=== PATIENT | female | born 1985 | race African-American/Black ===

== ENCOUNTER 2019-06-16 11:37 | Outpatient (CLI) | payer MEDICAID, SELFPAY ==
[2019-06-16 12:39] LABS: Blood Urea Nitrogen 7 mg/dL (7-17); Calcium 8.9 mg/dL (8.4-10.2); Carbon Dioxide 23 mmol/L (22-30); Chloride 103 mmol/L (98-107); Cholesterol 242 mg/dL (0-200); Estimated Glomerular Filt Rate > 60; Glucose 228 mg/dL (65-105); HDL Direct 26 mg/dL; Potassium 3.5 mmol/L (3.4-5.0); Sodium 136 mmol/L (137-145); Triglycerides 87 mg/dL (<150)
[2019-06-16 12:50] LABS: LDL Cholesterol Direct 192 mg/dL
[2019-06-16 12:59] LABS: Hemoglobin A1C 12.7 % (<5.7)
== END 2019-06-16 11:38 | disposition home or self-care (01) ==
DX: Z76.89 Persons encountering health services in other specified circumstances (principal)
CPT/HCPCS: 36415; 80048; 80061; 83036

== ENCOUNTER 2019-09-16 10:30 | Outpatient (RCR) | payer OTHER, SELFPAY ==
[2019-06-24 13:16] VITALS: BMI 26.5
[2019-06-24 13:17] VITALS: BMI 26.5
== END 2019-09-22 23:59 | disposition home or self-care (01) ==
LOC: ANHDMC 10:30
PROVIDERS: PCP Family Medicine
DX: E11.65 Type 2 diabetes mellitus with hyperglycemia (principal); Z71.3 Dietary counseling and surveillance; Z71.89 Other specified counseling
CPT/HCPCS: 97802; G0108

== ENCOUNTER 2019-11-27 13:00 | Outpatient (RCR) | payer OTHER, SELFPAY ==
[2019-09-25 15:21] VITALS: BMI 25.6
[2019-09-25 15:22] VITALS: BMI 25.6
== END 2019-11-27 15:15 | disposition home or self-care (01) ==
LOC: ANHDMC 13:00
PROVIDERS: PCP Family Medicine
DX: E11.65 Type 2 diabetes mellitus with hyperglycemia (principal); Z71.3 Dietary counseling and surveillance; Z71.89 Other specified counseling
CPT/HCPCS: 97803; G0108

== ENCOUNTER 2019-12-22 13:08 | Outpatient (CLI) | payer OTHER, SELFPAY ==
--- NOTE | ~2019-12-22 | US_ITS ---
EXAMINATION: US renal BI EXAM DATE: 12/22/2019 14:14 INDICATION: Stage I chronic kidney disease. Hyperlipidemia. TECHNIQUE: Multiple grayscale and Doppler images of the kidneys were obtained (by a technologist who performed the scan) and subsequently reviewed. There is no prior study for comparison. FINDINGS: Right kidney: There is normal contour and echogenicity. It measures 11.6 x 6.0 x 4.8 centimeters. T here are no focal renal lesions identified. There is no hydronephrosis. Left kidney: There is normal contour and echogenicity. It measures 11.7 x 6.9 x 6.7 centimeters. The re is anechoic region measuring 2.7 cm maximally, appearance consistent with cyst. There is no hydr onephrosis. Bladder unremarkable. IMPRESSION: 1. Anechoic left renal lesion likely cyst. 2. Otherwise unremarkable exam. Reviewed, dictated and finalized at location A. SURGEON
== END 2019-12-22 13:09 | disposition home or self-care (01) ==
LOC: ANHIMG 13:14
PROVIDERS: PCP Family Medicine; Visit Provider Internal Medicine Nephrology
DX: N18.1 Chronic kidney disease, stage 1 (principal); E11.9 Type 2 diabetes mellitus without complications; E78.5 Hyperlipidemia, unspecified; N28.9 Disorder of kidney and ureter, unspecified
CPT/HCPCS: 76775

== ENCOUNTER 2020-03-15 11:14 | Outpatient (CLI) | payer OTHER, SELFPAY ==
[2020-03-15 12:59] LABS: HIV 1/2 Ab P24 Ag Result Negative (Negative)
[2020-03-15 13:47] LABS: Hepatitis B Surface Antigen Negative (Negative)
[2020-03-15 13:51] LABS: Hepatitis B Core IgM Result Negative (Negative)
[2020-03-15 14:04] LABS: Hepatitis C Virus Antibody Negative (Negative)
[2020-03-16 11:03] LABS: Rapid Plasma Reagin Non-Reactive (NonReactive)
[2020-03-18 18:57] LABS: Hepatitis Be Antibody Nonreactive
== END 2020-03-15 11:15 | disposition home or self-care (01) ==
PROVIDERS: PCP Family Medicine; Visit Provider Obstetrics & Gynecology
DX: A64 Unspecified sexually transmitted disease (principal)
CPT/HCPCS: 36415; 86592; 86695; 86696; 86703; 86705; 86707; 86803; 87340; G0432

== ENCOUNTER 2020-05-27 13:37 | Outpatient (CLI) | payer OTHER, SELFPAY ==
[2020-05-27 15:03] LABS: Beta HCG Quantitative < 2.39 mIU/ML
== END 2020-05-27 13:38 | disposition home or self-care (01) ==
PROVIDERS: PCP Family Medicine; Visit Provider Advanced Practice Midwife
DX: Z30.9 Encounter for contraceptive management, unspecified (principal)
CPT/HCPCS: 36415; 84702

== ENCOUNTER 2020-10-11 04:22 | Observation (INO) | payer OTHER, SELFPAY ==
[2020-10-11] VITALS (17 sets, daily range): BP systolic 88–122; BP diastolic 53–81; PULSE 59–89; RESP 12–21; TEMP 36.7–36.8; O2SAT 98–100; BMI 17.5
--- NOTE | ~2020-10-11 | CT_ITS ---
EXAMINATION: CT abdomen pelvis w con INDICATION: Abdominal pain TECHNIQUE: Computed tomographic images of the abdomen and pelvis were obtained after the administrati on of 100 cc of Omnipaque 350 intravenous contrast. The dose-length product (DLP) was 180.26 mGy-cm. Automated exposure control and iterative reconstruction technique were employed. COMPARISON: None available FINDINGS: The lung bases are clear. The heart size is normal. The liver, spleen, pancreas, gallbladde r, and adrenal glands are normal. The kidneys are unremarkable. A large volume of colonic stool is pr esent. No pathologically enlarged abdominal or pelvic lymph nodes are identified. There is no free in traperitoneal gas or evidence of bowel obstruction. An IUD is present in the uterus. On some images, the IUD appears to be within the myometrium. This appearance could also be caused by an adjacent subm ucosal fibroid. IMPRESSION: 1. Constipation. 2. Questionable position of the IUD in the myometrium. Pelvic ultrasound is recommended. Reviewed, dictated and finalized at location A. IMPRESSION: 1. Constipation. 2. Questionable position of the IUD in the myometrium. Pelvic ultrasound is rec ommended.
--- NOTE | ~2020-10-11 | US_ITS ---
EXAMINATION: US pelvic complete EXAM DATE: 10/11/2020 11:57 INDICATION: IUD placement IUD PLACEMENT . TECHNIQUE: Pelvic transabdominal sonogram was performed. There are multiple grayscale and Doppler im ages available for interpretation. Correlation is made to CT abdomen same date. FINDINGS: Uterus measures 7.2 x 4.1 x 6.1 cm, with a central fundal fibroid measuring 3 cm, and obsc uring the endometrium. Endometrium is poorly visualized, but there is artifact identified from at ant erior and contiguous to the fibroid. There is no free pelvic fluid. Right adnexa: The ovary measures 3.9 x 1.9 x 2.1 cm and is morphologically normal. Ovarian vascular f low confirmed. Left adnexa: The ovary is not identified. There is no adnexal mass. IMPRESSION: Central fibroid obscuring endometrium, IUD crossbar identified contiguous and anterior to this, intrauterine in position. Could be within endometrial cavity but cannot specifically confirm t his. Reviewed, dictated and finalized at location B. IMPRESSION: Central fibroid obscuring endometrium, IUD crossbar identified cont iguous and anterior to this, intrauterine in position. Could be within endometr ial cavity but cannot specifically confirm this.
--- NOTE | 2020-10-11 04:38 | PC.NURSE ---
accucheck 337 on arrival.
--- NOTE | 2020-10-11 04:42 | ED.GENADULT ---
HPI - General Adult General Chief complaint: Abdominal Pain Stated complaint: Epigastric pain, DM complications Time Seen by Provider: 10/11/20 04:30 Source: RN notes reviewed History of Present Illness HPI narrative: Patient presents to emergency department from home for abdominal pain. Patient states for the past 1 week she has had abdominal pain located in the epigastric region. Pain is described as aching and burning sensation. Associated with nausea. The patient denies anything makes the pain better or worse she denies any fevers or chills chest pain shortness of breath vomiting diarrhea or any other symptoms Related Data Allergies Allergy/AdvReac Type Severity Reaction Status Date / Time No Known Allergies Allergy Verified 10/11/20 04:40 Review of Systems Review of Systems: Gen.: Denies fevers or chills ENT: Denies congestion Respiratory: Denies shortness of breath or cough CV: Denies chest pain or palpitations GI: See HPI denies burning, urgency, frequency or hematuria Musculoskeletal: Denies back pain or muscle pain Neuro: Denies numbness, tingling, weakness or focal weakness Skin: Denies rash Except as documented, all other systems reviewed and negative [facility] Past Medical History Medical History (Updated 10/11/20 @ 06:38 by Malik Sanchez DO) Diabetes mellitus Hypercholesterolemia Social History Social History (Updated 10/11/20 @ 04:43 by Malik Sanchez DO) Smoking status: Never smoker Spiritual care concerns: No Exam Narrative: APPEARANCE: No acute distress, nontoxic, resting in bed HEENT: Normocephalic, atraumatic, OMM RESPIRATORY: No respiratory distress, clear to auscultation bilaterally with no rhonchi wheezing or rales CARDIOVASCULAR: RRR s murmur ABDOMINAL: Soft nondistended tender palpation epigastric and right upper quadrant left upper quadrant no tenderness right lower quadrant left lower quadrant no rebound or guarding MUSCULOSKELETAl: Moves all extremities. No clubbing, cyanosis or edema. NEURO: Awake and alert. Following commands, speech normal, no focal deficits SKIN:: Warm, dry. Normal Color PSYCHIATRIC: Normal affect/mood Course Course Emergency Course: Discussed with Dr. Lambert presentation work-up agrees with mission to the ICU Discussed with Dr. Kelsey presentation work-up agrees with admission at this time Discussed with patient and family results of workup and diagnosis. Discussed need for admission. Patient and family understand and agree to current treatment plan Vital Signs Vital signs: Vital Signs Temperature 98.1 F 10/11/20 04:30 Pulse Rate 89 10/11/20 04:30 Respiratory Rate 20 10/11/20 04:30 Blood Pressure 122/81 10/11/20 04:30 Pulse Oximetry 100 10/11/20 04:30 Temperature 98.1 F 10/11/20 04:30 Pulse Rate 89 10/11/20 06:51 Respiratory Rate 21 H 10/11/20 06:51 Blood Pressure 115/68 10/11/20 06:51 Pulse Oximetry 100 10/11/20 06:51 Medical Decision Making Vital Signs Vital Signs: Vital Signs Temperature 98.1 F 10/11/20 04:30 Pulse Rate 89 10/11/20 04:30 Respiratory Rate 20 10/11/20 04:30 Blood Pressure 122/81 10/11/20 04:30 Pulse Oximetry 100 10/11/20 04:30 Temperature 98.1 F 10/11/20 04:30 Pulse Rate 89 10/11/20 06:51 Respiratory Rate 21 H 10/11/20 06:51 Blood Pressure 115/68 10/11/20 06:51 Pulse Oximetry 100 10/11/20 06:51 Lab Data Result diagrams: 10/11/20 04:56 10/11/20 04:56 Labs: Lab Results 10/11/20 10/11/20 10/11/20 Range/Units 04:37 04:56 04:56 WBC 6.4 (4.5-10.0) K/mm3 RBC 4.98 (4.2-5.4) M/mm3 Hgb 14.6 (12.0-15.0) g/dL Hct 46.2 (37.0-47.0) % MCV 92.8 (80-100) fl MCH 29.3 (26-34) pg MCHC 31.6 L (32-36) g/dl RDW 13.3 (11.5-14.5) % Plt Count 245 (150-375) k/mm3 MPV 10.9 H (7.4-10.4) fl Immature Gran % (Auto) 1.1 H (0-0.5) % Neut % (Auto) 54.5 (45.5-73.1) % Ly
[2020-10-11 04:43] LABS: Glucose Point of Care 337 mg/dl (65-105)
[2020-10-11 05:05] LABS: Basophils Percent Auto 0.5 % (0.2-1.2); Eosinophils Absolute Auto 0.2 K/mm3 (0-0.3); Eosinophils Percent Auto 2.4 % (0-4.4); Hematocrit 46.2 % (37.0-47.0); Hemoglobin 14.6 g/dL (12.0-15.0); Immature Granulocyte Absolute 0.07 K/mm3 (0.00-0.031); Immature Granulocyte Percent A 1.1 % (0-0.5); Lymphocytes Absolute Auto 2.01 K/mm3 (0.9-3.2); Lymphocytes Percent Auto 31.7 % (18.3-44.2); Mean Corpuscular HGB Conc 31.6 g/dl (32-36); Mean Corpuscular Hemoglobin 29.3 pg (26-34); Mean Corpuscular Volume 92.8 fl (80-100); Mean Platelet Volume 10.9 fl (7.4-10.4); Monocytes Absolute Auto 0.6 K/mm3 (0.1-0.6); Monocytes Percent Auto 9.8 % (2.6-8.5); Neutrophils Absolute Auto 3.5 K/mm3 (1.3-6.7); Neutrophils Percent Auto 54.5 % (45.5-73.1); Platelet Count Result 245 k/mm3 (150-375); Red Blood Count 4.98 M/mm3 (4.2-5.4); Red Cell Distribution Width 13.3 % (11.5-14.5); White Blood Count 6.4 K/mm3 (4.5-10.0)
[2020-10-11] MEDS: FAMOTIDINE 20 MG/2 ML VIAL IV PUSH (05:14)
[2020-10-11] MEDS: SODIUM CHLORIDE 0.9% IV 1,000 ML 999 ML IV CONT ×2 (05:14→05:55)
[2020-10-11] MEDS: ONDANSETRON INJ 4 MG/2 ML VIAL IV PUSH (05:15)
[2020-10-11 05:34] LABS: Alanine Aminotransferase 17 U/L (4-35); Albumin Level 4.8 g/dL (3.5-5.1); Alkaline Phosphatase 73 U/L (38-126); Anion Gap 20 mmol/L (8-16); Aspartate Amino Transferase 29 U/L (14-36); Bilirubin,Total 0.9 mg/dL (0.2-1.3); Blood Urea Nitrogen 9 mg/dL (7-17); Calcium 9.7 mg/dL (8.4-10.2); Carbon Dioxide 8 mmol/L (22-30); Chloride 104 mmol/L (98-107); Estimated Glomerular Filt Rate > 60; Glucose 350 mg/dL (65-110); Lipase 73 U/L (23-300); Potassium 4.8 mmol/L (3.4-5.0); Sodium 132 mmol/L (137-145)
[2020-10-11 05:38] LABS: Add Urine Microscopic? YES; Appearance Urine Clear (Clear); Bacteria Urine Trace /hpf; Bilirubin Urine Negative (Negative); Blood Urine Negative (Negative); Color Urine Straw (Yellow); Glucose Urine UA 3+ mg/dL (Negative); Ketones Urine 2+ mg/dL (Negative); Leukocyte Esterase Ur Negative LEU/UL (Negative); Mucus Urine Rare /lpf; Nitrate Urine Negative (Negative); Protein Urine 2+ mg/dL (Negative); Squamous Epithelial Cell Urine Rare /hpf (Few); Urobilinogen Urine Negative mg/dL (<2.0); WBC Urine 0-3 /hpf
[2020-10-11 05:47] LABS: Specific Grav Ur 1.033 (1.001-1.035)
[2020-10-11 06:00] LABS: Alveolar/Arterial O2 Gradient 4.3 mmHg; Base Excess ABG -16.9 mEq/l (+/-2.0); Fractional Inspired Oxygen 21 %; HCO3 ABG 8.1 mEq/l (22.0-26.0); Oxygen Content ABG 18.9 %vol (16.0-22.0); Oxyhemoglobin 97.1 % THb (90.0-100.0); PO2 ABG 122.4 mmHg (80.0-100.0); PO2 FiO2 Ratio Arterial Blood 5.83 %; Total Hemoglobin 13.7 g/dL (12.0-18.0)
[2020-10-11 06:03] LABS: Device ROOM AIR; Modified Allen's Test Pass; PCO2 ABG 19.2 mmHg (35.0-45.0); Site Drawn LEFT RADIAL; pH ABG 7.245 (7.350-7.450)
[2020-10-11 06:14] LABS: Magnesium 1.7 mg/dL (1.6-2.3)
--- NOTE | 2020-10-11 07:01 | PM.IMHP ---
H&P: HPI History of Present Illness Date/Time: 10/11/20 07:01 Chief Complaint: Abdominal pain Narrative: Patient presents to emergency department from home for abdominal pain that started about a week ago. The abdominal pain is in the epigastric area which is dull achy sensation. There is associated nausea but no vomiting. The patient has not been feeling well with the abdominal pain and hence came for evaluation. She denies any chest pain or shortness of breath or vomiting or diarrhea or fever or chills. She has a history of diabetes that was diagnosed with a year ago and was put on metformin and Januvia which she has been taking. Initial hemoglobin A1c was to falls and she states it has improved down to 6 subsequently after oral hypoglycemic agent however within the last few months she has been losing weight feeling more thirsty and also urinating frequently along with worsening of her hyperglycemia with A1c back to 12.8 4 months ago. She was planned to be started on insulin however her insulin was not covered by the insurance and has not been able to get her insulin. Upon evaluation in the ER she was noted to have DKA with bicarbonate of 8 and blood sugar of 350. She is planned to be admitted to the ICU under DKA protocol with regular insulin. She has already received 2 L IV fluid in the ER. Review of Systems Review of Systems: - CONSTITUTIONAL: Reports weight loss, denies fever and chills. - HEENT: Denies changes in vision and hearing - RESPIRATORY: Denies SOB and cough. - CV: Denies palpitations and CP. - GI: Reports abdominal pain, nausea, denies vomiting and diarrhea. - : Denies dysuria and reports urinary frequency. - MSK: Denies myalgia and joint pain. - SKIN: Denies rash and pruritus. - NEUROLOGICAL: Denies headache and syncope. - PSYCHIATRIC: Denies recent changes in mood. Denies anxiety and depression. All systems reviewed & are unremarkable except as noted in HPI and below Constitutional: Constitutional: Reports fatigue and Reports weakness Neurologic: Reports weakness Endocrine: Endocrine: Reports fatigue PMFSH Past Medical History Medical History (Updated 10/11/20 @ 06:38 by Malik Sanchez DO) Diabetes mellitus Hypercholesterolemia Social History Social History (Updated 10/11/20 @ 04:43 by Malik Sanchez DO) Smoking status: Never smoker Spiritual care concerns: No Meds Home Medications and Allergies Allergies Allergy/AdvReac Type Severity Reaction Status Date / Time No Known Allergies Allergy Verified 10/11/20 04:40 Vital Signs Vital Signs - 24 hr 10/11/20 04:30 Temperature 98.1 F Pulse Rate 89 Respiratory Rate 20 Blood Pressure 122/81 Pulse Oximetry 100 Exam Narrative: GENERAL: The patient is well developed, not in acute distress HEENT: Nonicteric sclerae, PERRLA, EOMI. Oropharynx clear. Moist mucous membranes. Conjunctivae appear well perfused. CHEST: Chest wall is nontender. HEART: Regular rate and rhythm without murmur, rubs, or gallops LUNGS: Clear to auscultation bilaterally. no respiratory distress ABDOMEN: Soft, positive bowel sounds, tender epigastric region, no organomegaly. SKIN: No rash, no excessive bruising, petechiae, or purpura. NEUROLOGIC: Cranial nerves II-XII intact, alert and oriented x 3, no gross motor deficits EXTREMITIES: no edema, cyanosis or clubbing Extrem: General: normal exam except as noted and no edema H&P: Results Labs Labs: Short CBC 10/11/20 Range/Units 04:56 WBC 6.4 (4.5-10.0) K/mm3 Hgb 14.6 (12.0-15.0) g/dL Hct 46.2 (37.0-47.0) % Plt Count 245 (150-375) k/mm3 BMP 10/11/20 04:56 Sodium 132 L Potassium 4.8 Chloride 104 Carbon Dioxide 8 L BUN 9 Creatinine 0.60 L Glucose 350 H Calcium 9.7 Liver Function 10/11/20 Range/Units 04:56 Total Bilirubin 0.9 (0.2-1.3) mg/dL AST 29 (14-36) U/L ALT 17 (4-35) U/L Alkaline Phosphatase 73 (38-126) U/L Alb
--- NOTE | 2020-10-11 07:21 | PC.NURSE ---
BS 248 at this time.
[2020-10-11 07:22] LABS: Glucose Point of Care 248 mg/dl (65-105)
[2020-10-11] MEDS: INSULIN HUMAN REGULAR (*BKC) 100 UNITS in SODIUM CHLORIDE 0.9% IV 99 ML IV CONT (07:26)
--- NOTE | 2020-10-11 07:51 | ADMGEN ---
This patient, Leeann Sotelo, was admitted to Intensive Care Unit-2. Patient/family oriented to hospital policies and general routines including ID bracelet, bed and alarms, visiting hours, pain management, procedures, bathroom and other care routines, personal items, smoking policy, room service/diet, and visiting hours. Information on how to activate the Rapid Response Team has been discussed. Patient/Family are encouraged to report perceived risks to care and to ask questions if they do not understand what they are told or what they should do.
[2020-10-11] MEDS: KCL 20 MEQ/D5/0.45% SOD CHL 1,000 ML 150 ML IV CONT (08:06)
[2020-10-11 08:47] LABS: Anion Gap 21 mmol/L (8-16); Blood Urea Nitrogen 8 mg/dL (7-17); Calcium 8.7 mg/dL (8.4-10.2); Carbon Dioxide 7 mmol/L (22-30); Chloride 103 mmol/L (98-107); Estimated CRCL calculation 100 ml/min; Estimated Glomerular Filt Rate > 60; Glucose 274 mg/dL (65-110); Potassium 3.9 mmol/L (3.4-5.0); Sodium 131 mmol/L (137-145)
--- NOTE | 2020-10-11 09:08 | WPDCNINT ---
Assessment and Plan Assessment and plan (1) DKA (diabetic ketoacidosis): Code(s): E11.10 - Type 2 diabetes mellitus with ketoacidosis without coma Status: Acute Assessment and Plan: Patient's labs are consistent with with DKA with elevated anion gap and positive ketones Patient was given 2 L IV fluid bolus and started on IV insulin Will change IV fluids to D5 half-normal saline Serial labs ordered Hold metformin and Januvia at this time Patient is NPO (2) Diabetes mellitus: Code(s): E11.9 - Type 2 diabetes mellitus without complications Status: Acute Assessment and Plan: Check HbA1c (3) IUD migration: Code(s): T83.32XA - Displacement of intrauterine contraceptive device, initial encounter Status: Acute Assessment and Plan: The CT abdomen pelvis suggests the IUD may be in the myometrium. Patient states that it was placed with difficulty around 3 months ago Will check pelvic ultrasound to confirm placement (4) Hypercholesterolemia: Code(s): E78.00 - Pure hypercholesterolemia, unspecified Status: Acute Assessment and Plan: Patient currently not on any treatment Will check FLP Additional Plan DVT prophylaxis -SCDs Nutrition - NPO at this time Code Status - Full Code Director Of Marketing Analytics Consult Note Consult date: 10/11/20 Time Seen: 08:00 HPI: Leeann Sotelo is a 35 year old female with past medical history of diabetes and hyperlipidemia presented with chief complaint of abdominal pain to ER last night. Patient takes metformin and Januvia but does not check her sugars. She states that she started having abdominal pain which is mild for last 1 week. Pain was 8/10 severe intermittent sharp quality. No radiation. Pain was worse with eating. She also had lot of nausea but no significant vomiting. No diarrhea. No hematochezia melena or hematemesis. No fever chest pain or shortness of breath. No chills or rigors. She denies any excessive or abnormal uterine bleeding. She has IUD which was placed 3 months ago with some difficulty as per her report. All other systems were reviewed and were negative. In ED patient was found to be in DKA. She was started on IV fluid bolus followed by IV insulin infusion and admitted to ICU for further evaluation and management. Her CT abdomen pelvis showed constipation and possible migration of IUD into the myometrium Review of Systems Review of Systems: All systems reviewed & are unremarkable except as noted in HPI and below (HPI) PMFSH Past Medical History Medical History Diabetes mellitus Hypercholesterolemia Social History Social History Smoking status: Never smoker Alcohol intake: current Drinks per week: 1 Substance use: former Spiritual care concerns: No Meds Home Medications and Allergies Home Medications Medication Instructions Recorded Confirmed Type metformin 1,000 mg PO BID 10/11/20 10/11/20 History sitagliptin [Januvia] 100 mg PO DAILY 10/11/20 10/11/20 History Allergies Allergy/AdvReac Type Severity Reaction Status Date / Time No Known Allergies Allergy Verified 10/11/20 04:40 Vital Signs Vital Signs - 24 hr 10/11/20 04:30 10/11/20 05:57 10/11/20 06:22 Temperature 36.7 C Pulse Rate 89 84 89 Respiratory Rate 20 19 19 Blood Pressure 122/81 Pulse Oximetry 100 100 10/11/20 06:30 10/11/20 06:51 10/11/20 07:19 Temperature Pulse Rate 88 89 76 Respiratory Rate 21 H 21 H 19 Blood Pressure 115/68 112/62 Pulse Oximetry 100 100 98 10/11/20 08:00 Temperature 36.7 C Pulse Rate 88 Respiratory Rate 19 Blood Pressure 110/76 Pulse Oximetry 100 Exam Narrative: General: Pt is alert awake and in NAD Lungs/Chest: Trachea central Clear BS B/L, No crackles or wheezing. Cardiac: RRR. Normal S1 S2. No murmurs Circulation: Pedal pulses are intact and symmet
[2020-10-11 09:38] LABS: Glucose Point of Care 201 mg/dl (65-105)
[2020-10-11 09:38] LABS: Glucose Point of Care 204 mg/dl (65-105)
[2020-10-11 10:00] LABS: Cholesterol 317 mg/dL (0-200); HDL Direct 36 mg/dL; Triglycerides 179 mg/dL (<150)
[2020-10-11 10:11] LABS: LDL Cholesterol Direct 201 mg/dL
[2020-10-11 10:37] LABS: Glucose Point of Care 239 mg/dl (65-105)
[2020-10-11 10:42] LABS: Hemoglobin A1C > 14.0 % (<5.7)
--- NOTE | 2020-10-11 10:53 | PC.NURSE ---
Updated aunt on plan of care and patient condition.
[2020-10-11 11:23] LABS: Beta-Hydroxybutyrate/Acetoacetate 8.07 mmol/L (0.02-0.27)
[2020-10-11 11:34] LABS: Glucose Point of Care 171 mg/dl (65-105)
[2020-10-11 12:53] LABS: Anion Gap 12 mmol/L (8-16); Blood Urea Nitrogen 6 mg/dL (7-17); Calcium 8.7 mg/dL (8.4-10.2); Carbon Dioxide 13 mmol/L (22-30); Chloride 107 mmol/L (98-107); Estimated CRCL calculation 121 ml/min; Estimated Glomerular Filt Rate > 60; Glucose 142 mg/dL (65-110); Potassium 3.1 mmol/L (3.4-5.0); Sodium 132 mmol/L (137-145)
[2020-10-11] MEDS: POTASSIUM CHLORIDE 20 MEQ TABLET 40 MEQ PO (14:04)
[2020-10-11] MEDS: INSULIN GLARGINE (*BKC) 100 UNITS/ML 10 UNITS SUB-Q (14:04)
--- NOTE | 2020-10-11 14:08 | PM.IMPN ---
Progress Note: A&P Assessment and Plan (1) DKA (diabetic ketoacidosis): Code(s): E11.10 - Type 2 diabetes mellitus with ketoacidosis without coma Status: Acute Assessment and Plan: Patient's labs are consistent with with DKA with elevated anion gap and positive ketones. Patient was given 2 L IV fluid bolus and started on IV insulin and IV fluids per DKA protocol. Continue to hold metformin and Januvia. Anion gap closing with plans to change her to SQ insulin. (2) Diabetes mellitus: Code(s): E11.9 - Type 2 diabetes mellitus without complications Status: Acute Assessment and Plan: As above. HbA1c was 12.7 in June 2019 but nothing since. A1c now >14. She is only on metformin and Januvia on admissions. Acetylene Torch Operator and asthma educator consult. (3) IUD migration: Code(s): T83.32XA - Displacement of intrauterine contraceptive device, initial encounter Status: Acute Assessment and Plan: The CT abdomen pelvis suggests the IUD may be in the myometrium. Patient states that it was placed with difficulty around 3-4 months ago. Pelvic US showing a central fibroid that obscured the endometrium. IUD could be within endometrial cavity but cannot specifically confirm this. FRIEND OF THE COURT consult obtained. (4) Hypercholesterolemia: Code(s): E78.00 - Pure hypercholesterolemia, unspecified Status: Acute Assessment and Plan: Patient currently not on any treatment. Lipid panel ordered. (5) DVT prophylaxis: Code(s): Z29.9 - Encounter for prophylactic measures, unspecified Status: Acute Assessment and Plan: Lovenox Subjective Date/time seen: 10/11/20 14:08 Interval history: 35yo female with DM here for abdominal pain and found to have DKA. Assuming care. Chart reviewed. Abd feels better. Mild nausea but no vomiting or diarrhea. No anosmia or dysgeusia. She is unvaccinated for COVID-19. She is being taught on how to give herself insulin. Had vaginal spotting initially after IUD placed but nothing since. No vagial discharge. Exam Narrative: AF 98.1 92/54 78 14 100% ra Gen - NARD Chest - CTA bilaterally, nml RR CV - RRR S1/S2 Abd - Soft, NT/ND, Positive BS Ext - No pedal edema Neuro - Alert and oriented. Nonfocal exam. Psych - Nml mood and affect Skin - Warm and dry Objective Data Vital Signs Vital Signs: Vital Signs - 24 hr 10/11/20 04:30 10/11/20 05:57 10/11/20 06:22 Temperature 98.1 F Pulse Rate 89 84 89 Respiratory Rate 20 19 19 Blood Pressure 122/81 Pulse Oximetry 100 100 10/11/20 06:30 10/11/20 06:51 10/11/20 07:19 Temperature Pulse Rate 88 89 76 Respiratory Rate 21 H 21 H 19 Blood Pressure 115/68 112/62 Pulse Oximetry 100 100 98 10/11/20 08:00 10/11/20 10:00 10/11/20 12:00 Temperature 98.1 F 98.1 F Pulse Rate 87 89 78 Respiratory Rate 19 12 14 Blood Pressure 110/76 108/70 92/54 L Pulse Oximetry 100 100 100 Intake/Output Intake/Output: Intake & Output 10/08/20 10/09/20 10/10/20 10/11/20 23:59 23:59 23:59 23:59 Intake Total 2425 Output Total 900 Balance 1525 Meds/Results Medications: Active Medications Generic Name Dose Route Start Last Admin Trade Name Freq PRN Reason Stop Dose Admin Acetaminophen 650 mg 10/11/20 11:57 Acetaminophen 325 Mg Tablet PO Q4H PRN Headache, fever or mild pain Hydrocodone Bitart/Acetaminophen 1 tab 10/11/20 11:57 Hydrocodone/Acetaminophen (*Crx) 5-325 Mg Tablet PO Q4H PRN Pain Rated 6 or Greater Dextrose 12.5 gm 10/11/20 06:10 Dextrose 50% 25 Gm/50 Ml Syringe IV PUSH PRN PRN Hypoglycemia Protocol Dextrose 12.5 gm 10/11/20 13:36 Dextrose 50% 25 Gm/50 Ml Syringe IV PUSH PRN PRN Hypoglycemia Protocol Glucagon 1 mg 10/11/20 06:10 Glucagon For Inj 1 Mg Vial IM PRN PRN Hypoglycemia Protocol Glucagon 1 mg 10/11/20 13:36
[2020-10-11 14:35] LABS: Glucose Point of Care 120 mg/dl (65-105)
[2020-10-11 14:35] LABS: Glucose Point of Care 241 mg/dl (65-105)
[2020-10-11] MEDS: ACETAMINOPHEN 325 MG TABLET 650 MG PO ×2 (14:48→20:19)
[2020-10-11] MEDS: KCL 20 MEQ/0.45% NS 1,000 ML 100 ML IV CONT (14:48)
[2020-10-11] MEDS: INSULIN ASPART (*BKC) 100 UNITS/ML SUB-Q ×2 (16:58→20:20)
[2020-10-11 17:04] LABS: Glucose Point of Care 241 mg/dl (65-105)
[2020-10-11 23:07] LABS: Glucose Point of Care 256 mg/dl (65-105)
[2020-10-11 23:07] LABS: Glucose Point of Care 355 mg/dl (65-105)
[2020-10-12] VITALS (12 sets, daily range): BP systolic 95–143; BP diastolic 57–74; PULSE 73–85; RESP 13–23; TEMP 36.3–37; O2SAT 99–100; BMI 19.1
[2020-10-12 01:31] LABS: Anion Gap 9 mmol/L (8-16); Blood Urea Nitrogen 7 mg/dL (7-17); Calcium 8.4 mg/dL (8.4-10.2); Carbon Dioxide 17 mmol/L (22-30); Chloride 104 mmol/L (98-107); Estimated CRCL calculation 121 ml/min; Estimated Glomerular Filt Rate > 60; Glucose 312 mg/dL (65-110); Sodium 130 mmol/L (137-145)
--- NOTE | 2020-10-12 02:25 | PC.NURSE ---
2mg given for agitation, propofol and fentanyl not increased due to bradycardia.
[2020-10-12] MEDS: KCL 20 MEQ/0.45% NS 1,000 ML 100 ML IV CONT (02:45)
[2020-10-12 04:54] LABS: Hematocrit 38.5 % (37.0-47.0); Hemoglobin 12.6 g/dL (12.0-15.0); Mean Corpuscular HGB Conc 32.7 g/dl (32-36); Mean Corpuscular Hemoglobin 30.1 pg (26-34); Mean Corpuscular Volume 91.9 fl (80-100); Mean Platelet Volume 10.6 fl (7.4-10.4); Platelet Count Result 208 k/mm3 (150-375); Red Blood Count 4.19 M/mm3 (4.2-5.4); Red Cell Distribution Width 13.2 % (11.5-14.5); White Blood Count 4.7 K/mm3 (4.5-10.0)
[2020-10-12 05:08] LABS: Alanine Aminotransferase 11 U/L (4-35); Albumin Level 3.4 g/dL (3.5-5.1); Alkaline Phosphatase 58 U/L (38-126); Anion Gap 9 mmol/L (8-16); Aspartate Amino Transferase 19 U/L (14-36); Bilirubin,Total 0.4 mg/dL (0.2-1.3); Blood Urea Nitrogen 5 mg/dL (7-17); Calcium 8.4 mg/dL (8.4-10.2); Carbon Dioxide 18 mmol/L (22-30); Chloride 105 mmol/L (98-107); Cholesterol 258 mg/dL (0-200); Estimated CRCL calculation 121 ml/min; Estimated Glomerular Filt Rate > 60; Glucose 246 mg/dL (65-110); HDL Direct 32 mg/dL; Magnesium 1.8 mg/dL (1.6-2.3); Potassium 3.9 mmol/L (3.4-5.0); Sodium 132 mmol/L (137-145); Triglycerides 51 mg/dL (<150)
[2020-10-12 05:19] LABS: LDL Cholesterol Direct 177 mg/dL
[2020-10-12 07:17] LABS: Glucose Point of Care 255 mg/dl (65-105)
[2020-10-12] MEDS: INSULIN ASPART (*BKC) 100 UNITS/ML SUB-Q ×5 (07:17→20:56)
[2020-10-12] MEDS: INSULIN GLARGINE (*BKC) 100 UNITS/ML 10 UNITS SUB-Q ×3 (07:23→20:56)
[2020-10-12] MEDS: ENOXAPARIN 40 MG/0.4 ML SYRINGE SUB-Q (08:32)
[2020-10-12] MEDS: ONDANSETRON INJ 4 MG/2 ML VIAL IV PUSH (08:34)
--- NOTE | 2020-10-12 09:05 | WPDINTPN ---
Progress Note: A&P Assessment and Plan (1) DKA (diabetic ketoacidosis): Code(s): E11.10 - Type 2 diabetes mellitus with ketoacidosis without coma Status: Acute Assessment and Plan: Patient's labs are consistent with with DKA with elevated anion gap and positive ketones Patient was given 2 L IV fluid bolus and started on IV insulin her anion gap has now closed and patient has been transition to subcutaneous insulin patient is tolerating p.o. diet (2) Diabetes mellitus: Code(s): E11.9 - Type 2 diabetes mellitus without complications Status: Acute Assessment and Plan: her HbA1c was more than 14 showing chronic poorly controlled diabetes her blood sugars are still high on Lantus and sliding scale I will increase Lantus to 20 units q.day I will add with meal insulin along with sliding scale I discussed with patient and she is interested in getting an insulin pump. nurse educator is consulted and is pending (3) IUD migration: Code(s): T83.32XA - Displacement of intrauterine contraceptive device, initial encounter Status: Acute Assessment and Plan: The CT abdomen pelvis suggests the IUD may be in the myometrium. Patient states that it was placed with difficulty around 3 months ago pelvic ultrasound was checked and was not confirmatory emergency department aide consult is pending Additional Plan DVT prophylaxis -SCDs Nutrition - diabetic diet Code Status - Full Code transfer out of ICU today Subjective Date/time seen: 10/12/20 Patient states she is feeling better today as compared to yesterday and denies any abdominal pain. she ate her breakfast this morning. Still has some off and on nausea but no vomiting. Denies any vaginal bleeding or discharge.. No fever chest pain shortness of breath. All other systems were reviewed and were negative Interval history: 35yo female with DM here for abdominal pain and found to have DKA. Review of Systems Review of Systems: All systems reviewed & are unremarkable except as noted in HPI and below (HPI) Exam Narrative: General: Pt is alert awake and in NAD Lungs/Chest: Trachea central Clear BS B/L, No crackles or wheezing. Cardiac: RRR. Normal S1 S2. No murmurs Circulation: Pedal pulses are intact and symmetrical. Abdomen: Normal bowel sounds. Soft. ND. no tenderness Extremities: No clubbing, cyanosis or edema. Warm : Thomas in place Neurologic: Follows commands. Moves all 4 extremities PERRL Skin: No Rash Objective Data Vital Signs Vital Signs: Vital Signs - 24 hr 10/11/20 10:00 10/11/20 12:00 10/11/20 14:00 Temperature 36.7 C Pulse Rate 89 78 81 Respiratory Rate 12 14 17 Blood Pressure 108/70 92/54 L 96/53 L Pulse Oximetry 100 100 100 10/11/20 16:00 10/11/20 18:00 10/11/20 19:20 Temperature 36.7 C 36.8 C Pulse Rate 77 79 82 Respiratory Rate 19 19 19 Blood Pressure 99/63 L 95/55 L 99/57 L Pulse Oximetry 100 100 100 10/11/20 20:00 10/11/20 20:10 10/11/20 22:00 Temperature Pulse Rate 82 81 Respiratory Rate 17 Blood Pressure 88/56 L Pulse Oximetry 100 99 10/11/20 23:00 10/12/20 00:00 10/12/20 02:37 Temperature 36.3 C L Pulse Rate 79 74 75 Respiratory Rate 15 16 16 Blood Pressure 107/68 105/65 106/66 Pulse Oximetry 100 100 100 10/12/20 04:00 10/12/20 06:00 10/12/20 07:45 Temperature 36.6 C Pulse Rate 77 79 Respiratory Rate 14 14 Blood Pressure 104/74 95/58 L Pulse Oximetry 100 100 100 Intake/Output Intake/Output: Intake & Output 10/09/20 10/10/20 10/11/20 10/12/20 23:59 23:59 23:59 23:59 Intake Total 4000 1200 Output Total 2650 1225 Balance 1350 -25 Meds/Results Medications: Active Medications Generic Name Dose Route Start Last Admin Trade Name Freq PRN Reason Stop Dose Admin Acetaminophen 650 mg 10/11/20 11:57 10/11/20 20:19 Acetaminophen 325 Mg Tablet PO 650 mg Q4H PRN Administration Headache, fever or mild pain Hyd
[2020-10-12 11:35] LABS: Glucose Point of Care 323 mg/dl (65-105)
--- NOTE | 2020-10-12 12:16 | PCDIET ---
Nutrition Follow-Up Complete: Nutrition Diagnosis: Altered nutrition related labs related to diabetes mellitus as evidenced by diagnosis DKA. Nutrition Goal: Patient to meet estimated nutritional needs to promote weight stability. Goal met. Patient consuming 85-100% of meals on diabetic diet. Reports tolerating well. Recommend heart healthy diet jail. Patient plans to make some positive changes with diet. Last recorded weight is 53.9 kg which is increased from last review. +I/O. Bowel Motility: No documented BM as of yet. Labs Reviewed: Glu (246), Chol (258), LDL (177), HDL (32) Meds Noted: Novolog, Lantus, Zofran Additional Notes: No documented skin breakdown. Will continue to monitor with same goal. Nutrition Monitoring and Evaluation: Follow up every 7 days.
--- NOTE | 2020-10-12 17:27 | PM.IMPN ---
Progress Note: A&P Assessment and Plan (1) DKA (diabetic ketoacidosis): Code(s): E11.10 - Type 2 diabetes mellitus with ketoacidosis without coma Status: Acute Assessment and Plan: Patient's labs are consistent with with DKA with elevated anion gap and positive ketones. Patient was given 2 L IV fluid bolus and started on IV insulin and IV fluids per DKA protocol. Anion gap closed and she was switched to SQ insulin. DKA resolved. (2) Diabetes mellitus: Code(s): E11.9 - Type 2 diabetes mellitus without complications Status: Acute Assessment and Plan: As above. HbA1c was 12.7 in June 2019 but nothing since. A1c now >14. She is only on metformin and Januvia on admissions. Chief Specialist Leed and ems educator have seen and educated the patient. Still with elevated glucose. Will adjust. Encouraged patient to perform self-injections. Hold Januvia given the DKA side effects and hold metformin given the low serum bicarb. (3) IUD migration: Code(s): T83.32XA - Displacement of intrauterine contraceptive device, initial encounter Status: Acute Assessment and Plan: The CT abdomen pelvis suggests the IUD may be in the myometrium. Patient states that it was placed with difficulty around 3-4 months ago. Pelvic US showing a central fibroid that obscured the endometrium. IUD could be within endometrial cavity but cannot specifically confirm this. PETROLEUM ENGINEER consult ordered. (4) Hypercholesterolemia: Code(s): E78.00 - Pure hypercholesterolemia, unspecified Status: Acute Assessment and Plan: Patient currently not on any treatment. TC 258, TG 51, LDL 177 and HDL 32. Will add Lipitor. (5) DVT prophylaxis: Code(s): Z29.9 - Encounter for prophylactic measures, unspecified Status: Acute Assessment and Plan: Lovenox Subjective Date/time seen: 10/12/20 17:27 Interval history: 35yo female with DM here for abdominal pain and found to have DKA. Feels well. No complaints. Still has not given herself an injection nor checked her glucose. Eating well. Still with mid-abdomen pain. No dysuria or hemturia. No BM since admission. No vagial bleeding or discharge. Exam Narrative: AF 98.5 143/72 73 23 99% ra Gen - NARD Chest - CTA bilaterally, nml RR CV - RRR S1/S2; Tele showing no significant dysrhythmias Abd - Soft, NT/ND, Positive BS Ext - No pedal edema Neuro - Alert and oriented. Nonfocal exam. Psych - Nml mood and affect Skin - Warm and dry Objective Data Vital Signs Vital Signs: Vital Signs - 24 hr 10/11/20 18:00 10/11/20 19:20 10/11/20 20:00 Temperature 98.2 F Pulse Rate 79 82 82 Respiratory Rate 19 19 Blood Pressure 95/55 L 99/57 L Pulse Oximetry 100 100 10/11/20 20:10 10/11/20 22:00 10/11/20 23:00 Temperature Pulse Rate 81 79 Respiratory Rate 17 15 Blood Pressure 88/56 L 107/68 Pulse Oximetry 100 99 100 10/12/20 00:00 10/12/20 02:37 10/12/20 04:00 Temperature 97.3 F L 97.9 F Pulse Rate 74 75 77 Respiratory Rate 16 16 14 Blood Pressure 105/65 106/66 104/74 Pulse Oximetry 100 100 100 10/12/20 06:00 10/12/20 07:45 10/12/20 08:00 Temperature 98.4 F Pulse Rate 79 84 Respiratory Rate 14 16 Blood Pressure 95/58 L 110/64 Pulse Oximetry 100 100 100 10/12/20 10:00 10/12/20 12:00 10/12/20 14:00 Temperature 98.6 F Pulse Rate 85 82 77 Respiratory Rate 17 19 19 Blood Pressure 98/57 L 109/66 102/60 Pulse Oximetry 100 99 99 10/12/20 16:00 Temperature 98.5 F Pulse Rate 73 Respiratory Rate 23 H Blood Pressure 143/72 H Pulse Oximetry 99 Intake/Output Intake/Output: Intake & Output 10/09/20 10/10/20 10/11/20 10/12/20 23:59 23:59 23:59 23:59 Intake Total 4000 2140 Output Total 2650 3525 Balance 1350 -1385 Meds/Results Medications: Active Medications Generic Name Dose Route Start Last Admin Trade Name Freq PRN Reason Stop Dose Admin Acetaminophen 6
[2020-10-12 18:50] LABS: Glucose Point of Care 167 mg/dl (65-105)
[2020-10-12 21:02] LABS: Glucose Point of Care 279 mg/dl (65-105)
--- NOTE | 2020-10-12 23:26 | PC.NURSE ---
This patient, Leeann Sotelo, was transferred to [facility] on 10/12/20 at 2320. Personal belongings sent with patient. Report given to CORAZON Bob. Appropriate documentation sent with patient.
--- NOTE | 2020-10-12 23:27 | PC.NURSE ---
This patient, Leeann Sotelo, was received from [ICU-2 ] on 10/12/20 at 2317. Patient/family oriented to unit policies and routines
[2020-10-13] VITALS: BP 110/68; PULSE 70; RESP 16; TEMP 37.1; O2SAT 100
[2020-10-13 00:16] LABS: Glucose Point of Care 131 mg/dl (65-105)
[2020-10-13] MEDS: ACETAMINOPHEN 325 MG TABLET 650 MG PO (00:18)
[2020-10-13 06:54] LABS: Anion Gap 10 mmol/L (8-16); Blood Urea Nitrogen 9 mg/dL (7-17); Calcium 8.5 mg/dL (8.4-10.2); Carbon Dioxide 26 mmol/L (22-30); Chloride 103 mmol/L (98-107); Estimated CRCL calculation 170 ml/min; Estimated Glomerular Filt Rate > 60; Glucose 186 mg/dL (65-110); Potassium 3.1 mmol/L (3.4-5.0); Sodium 139 mmol/L (137-145)
[2020-10-13 07:30] LABS: Glucose Point of Care 133 mg/dl (65-105)
[2020-10-13 08:05] VITALS: BP 117/59; PULSE 85; RESP 14; TEMP 36.9; O2SAT 100
[2020-10-13] MEDS: metFORMIN HCL 500 MG TABLET 1000 MG PO ×2 (08:08→17:32)
[2020-10-13] MEDS: POTASSIUM CHLORIDE 20 MEQ TABLET 40 MEQ PO (08:08)
[2020-10-13] MEDS: ATORVASTATIN 20 MG TABLET PO (08:08)
[2020-10-13] MEDS: INSULIN ASPART (*BKC) 100 UNITS/ML SUB-Q ×5 (08:09→17:26)
[2020-10-13] MEDS: ENOXAPARIN 40 MG/0.4 ML SYRINGE SUB-Q (08:09)
--- NOTE | 2020-10-13 08:49 | PM.IMHP ---
H&P: HPI History of Present Illness Date/Time: 10/13/20 08:49 35 y/o hospitalized for DKA. She is doing much better and tells me she should go home today. It turns out she is actually a patient at [facility]. She had had a Mirena IUD placed about 3 months ago. Says placement was painful. But no bleeding at this point and no abdominal or pelvic pain. CT imaging in hospital questions whether the IUD is partially8 in the myometrium. Ultrasound of pelvis is unsatisfactory due to an obscuring fibroid. Chief Complaint: IUD location Review of Systems Review of Systems: All systems reviewed & are unremarkable except as noted in HPI and below PMFSH Past Medical History Medical History Diabetes mellitus Hypercholesterolemia Social History Social History Smoking status: Never smoker Alcohol intake: current Drinks per week: 1 Substance use: former Spiritual care concerns: No Meds Home Medications and Allergies Home Medications Medication Instructions Recorded Confirmed Type metformin 1,000 mg PO BID 10/11/20 10/11/20 History sitagliptin [Januvia] 100 mg PO DAILY 10/11/20 10/11/20 History Allergies Allergy/AdvReac Type Severity Reaction Status Date / Time No Known Allergies Allergy Verified 10/11/20 04:40 Vital Signs Vital Signs - 24 hr 10/12/20 10:00 10/12/20 12:00 10/12/20 14:00 Temperature 37.0 C Pulse Rate 85 82 77 Respiratory Rate 17 19 19 Blood Pressure 98/57 L 109/66 102/60 Pulse Oximetry 100 99 99 10/12/20 16:00 10/12/20 18:00 10/12/20 20:00 Temperature 36.9 C Pulse Rate 73 76 80 Respiratory Rate 23 H 13 20 Blood Pressure 143/72 H 118/70 Pulse Oximetry 99 100 99 10/13/20 00:00 10/13/20 08:05 Temperature 37.1 C 36.9 C Pulse Rate 70 85 Respiratory Rate 16 14 Blood Pressure 110/68 117/59 L Pulse Oximetry 100 100 Exam Const: Orientation/consciousness: patient oriented x3 Other: Well-developed, well-nourished female in no acute distress. GI: Other: ABD: Soft, nontender, nondistended. No guarding or rebound tenderness. No hepatosplenomegaly. : Other: Pelvic exam deferred. Extrem: Other: Extremities: nontender with no edema H&P: Results Labs Labs: [facility] 10/13/20 06:19 Sodium 139 Potassium 3.1 L Chloride 103 Carbon Dioxide 26 BUN 9 Creatinine 0.30 L Glucose 186 H Calcium 8.5 Assessment and Plan Assessment and plan (1) IUD (intrauterine device) in place: Code(s): Z97.5 - Presence of (intrauterine) contraceptive device Status: Acute Assessment and Plan: A: Possible malpositioned Mirena IUD. I have reviewed the images myself and I suspect it is actually in its proper intrauterine position. P: Because she is not having any difficulty at present, we opted not to perform a pelvic exam in the hospital bed. She plans to go home today. She would like simply to follow up with her usual salvage laborer at [facility] [place] as an outpatient for IUD management.
[2020-10-13 11:45] LABS: Glucose Point of Care 299 mg/dl (65-105)
--- NOTE | 2020-10-13 13:34 | PM.DS ---
DS: Admitting Diagnosis Admitting Diagnosis Abdominal pain DS: Discharge Diagnosis Discharge Diagnosis (1) DKA (diabetic ketoacidosis): Code(s): E11.10 - Type 2 diabetes mellitus with ketoacidosis without coma Status: Acute (2) Diabetes mellitus: Code(s): E11.9 - Type 2 diabetes mellitus without complications Status: Acute (3) IUD migration: Code(s): T83.32XA - Displacement of intrauterine contraceptive device, initial encounter Status: Acute (4) Hypercholesterolemia: Code(s): E78.00 - Pure hypercholesterolemia, unspecified Status: Acute DS: Summary Hospital Course Reason for hospitalization: 35yo female with DM here for abdominal pain and found to have DKA. Please see H&P for details Hospital Course: Patient presents with abdominal pain. CT abdomen pelvis suggests the IUD may be in the myometrium but no acute process. Patient's labs are consistent with DKA with metabolic acidosis (pH 7.25), elevated anion gap and positive ketones. Patient was given 2 L IV fluid bolus and started on IV insulin and IV fluids per DKA protocol and admitted to the ICU. Anion gap closed and she was switched to SQ insulin. DKA resolved. HbA1c was 12.7 in June 2019 but nothing since. A1c now >14. She was only on metformin and Januvia on admissions. Account Executive Trainee and hospice educator were consulted and they have both seen and educated the patient. Patient did have difficulty performing self-injections. We stopped Januvia given the side effects of DKA. Metformin was held due to the acidosis but resumed once gap closed and serum bicarb normalized. The patient states that her IUD was placed with difficulty around 3-4 months ago. Pelvic US showing a central fibroid that obscured the endometrium. IUD could be within endometrial cavity but cannot specifically confirm this. TAX ASSOCIATE ATTORNEY consult obtained but felt patient could be followed up as outpatient. Patient has hx of hyperlipidemia and she is not on any treatment. TC 258, TG 51, LDL 177 and HDL 32. We added Lipitor. She was advised to monitor her glucose closely. She will need close follow up in the outpatient setting and she should follow with an evaporator. Discussed medication list and potential side effects. Long time with education and all questions answered. Status at Discharge Cognitive/behavioral status at discharge: stable Time Spent with Patient Time attestation: Total time spent providing and/or coordinating discharge services: 35 minutes Time spent: Greater than 30 minutes Specific discharge activities: Patient Education Exam Narrative: AF 98.5 117/59 85 14 100% ra Gen - NARD Chest - CTA bilaterally, nml RR CV - RRR S1/S2 Abd - Soft, NT/ND, Positive BS Ext - No pedal edema Neuro - Alert and oriented. Nonfocal exam. Psych - Nml mood and affect Skin - Warm and dry DS: Data Data Completed and Pending Labs on day of discharge: Labs from last 24 hours 10/13/20 10/13/20 10/13/20 11:42 07:28 06:19 Sodium 139 Potassium 3.1 L Chloride 103 Carbon Dioxide 26 Anion Gap 10 BUN 9 Creatinine 0.30 L Estim Creat Clear Calc 170 Estimated GFR > 60 Glucose 186 H POC Capillary Glucose 299 H 133 H Calcium 8.5 10/13/20 10/12/20 10/12/20 00:11 20:53 18:34 Sodium Potassium Chloride Carbon Dioxide Anion Gap BUN Creatinine Estim Creat Clear Calc Estimated GFR Glucose POC Capillary Glucose 131 H 279 H 167 H Calcium Discharge Plan Discharge Attending physician on discharge: Isaac Cummins Consulting providers: Giovani Lambert ; Darrell Barraza Discharging Clinician: Isaac Cummins Anticipated Discharge Date/Time: 10/13/20 13:35 Patient Disposition: Home, Self-Care Activity: as tolerated Diet: diabetic Discharge Instructions: Please avoid large gathering, wear face coverings in public and practice social distance.
[2020-10-13 17:23] LABS: Glucose Point of Care 357 mg/dl (65-105)
--- NOTE | 2020-10-13 18:02 | PC.NURSE ---
Pt waiting on transportation home. Pt stated they should be here in 40 min .
--- NOTE | 2020-10-13 19:25 | PC.NURSE ---
Pt called after being discharged stating there was an issue with insurance being authorized for to cover her novolog. Care coordination was called, spoke with María, and gave the pt's information and situation. María stated she was on hold with [employer] to give them the patients information, that the insulin should be covered.
--- NOTE | 2020-10-13 19:43 | PCCCNOTE ---
Patient at pharmacy trying to get insurance coverage for her prescription of Novolog at 1930. Patient has new insurance that went into effect today andd requires preauthorization? Prescription at [facility] was >$300 and patient unable to afford. Provided patient information for a [employer] card, registered her over the phone and texted her a copy of the card/ID number from my personal phone. According to the website the cost should be $74.16 and patient voices ability to pay for this.
--- NOTE | 2020-10-14 10:49 | PCCCNOTE ---
Rec'd call from Leeann stating that the Novalog that was ordered is not covered by her insurance at [facility] in [place] and requests the Rx be transferred to [facility] in [place], [place]. Arminda was called and asked that they call RX to [facility] in [place], [place] [phone]. Pharmacist states she will do so. Called Leeann back and updated her that Arminda was going to call Rx to [facility].
== END 2020-10-13 18:34 | disposition home or self-care (01) ==
LOC: ANHED 06:37 → ANHICU 06:58 → ANHCPC 10-12 23:16
PROVIDERS: Internal Medicine; Admitting Provider Internal Medicine; Emergency Provider Emergency Medicine; PCP Nurse Practitioner Adult Health; Visit Provider Internal Medicine
DX: E11.10 Type 2 diabetes mellitus with ketoacidosis without coma (principal); T83.32XA Displacement of intrauterine contraceptive device, initial encounter; R10.13 Epigastric pain; E78.00 Pure hypercholesterolemia, unspecified; Z79.84 Long term (current) use of oral hypoglycemic drugs
CPT/HCPCS: 36415; 36600; 74177; 76856; 80048; 80053; 80061; 81001; 81025; 82010; 82805; 82948; 83036; 83690; 83735; 84100; 85025; 85027; 96361; 96365; 96366; 96368; 96372; 96375; 96376; 99285; A9270; G0378; G0379; J1650; J1815; J2405; J3480; J7030; Q9967

== ENCOUNTER 2021-04-21 16:21 | Outpatient (CLI) | payer OTHER, SELFPAY ==
[2021-04-21 17:07] LABS: Alanine Aminotransferase 13 U/L (4-35); Albumin Level 4.2 g/dL (3.5-5.1); Alkaline Phosphatase 57 U/L (38-126); Anion Gap 8 mmol/L (8-16); Aspartate Amino Transferase 24 U/L (14-36); Bilirubin,Total 0.4 mg/dL (0.2-1.3); Blood Urea Nitrogen 13 mg/dL (7-17); Calcium 8.7 mg/dL (8.4-10.2); Carbon Dioxide 26 mmol/L (22-30); Chloride 103 mmol/L (98-107); Cholesterol 166 mg/dL (0-200); Estimated Glomerular Filt Rate > 60; Glucose 201 mg/dL (65-110); HDL Direct 74 mg/dL; Potassium 3.9 mmol/L (3.4-5.0); Sodium 137 mmol/L (137-145); Triglycerides 40 mg/dL (<150)
[2021-04-21 17:30] LABS: LDL Cholesterol Direct 66 mg/dL
[2021-04-21 17:37] LABS: Thyroid Stimulating Hormone 0.443 uIU/mL (0.465-4.680)
[2021-04-21 17:43] LABS: MALB Creatinine Ratio 83.7 mg/g (0-30); Microalbumin Urine Random 184.1 mg/L (0-16.7)
[2021-04-22 12:53] LABS: Hemoglobin A1C 9.4 % (<5.7)
[2021-04-24 08:02] LABS: C-Peptide 0.18 ng/mL (0.80-3.85)
[2021-04-24 19:10] LABS: Glutamic acid decarboxylase AA >250 IU/mL (<5)
[2021-05-06 20:38] LABS: Islet Cell Antibody Screen NEGATIVE (NEGATIVE)
== END 2021-04-21 16:22 | disposition home or self-care (01) ==
LOC: ANHLAB 16:26
PROVIDERS: PCP Nurse Practitioner Adult Health; Visit Provider Internal Medicine Endocrinology, Diabetes & Metabolism
DX: E11.65 Type 2 diabetes mellitus with hyperglycemia (principal); E78.5 Hyperlipidemia, unspecified
CPT/HCPCS: 36415; 80053; 80061; 82043; 83036; 84439; 84443; 84681; 86341

== ENCOUNTER 2022-04-18 14:17 | Outpatient (CLI) | payer OTHER, SELFPAY ==
[2022-04-18 15:17] LABS: Anion Gap 8 mmol/L (8-16); Blood Urea Nitrogen 11 mg/dL (7-17); Carbon Dioxide 27 mmol/L (22-30); Chloride 103 mmol/L (98-107); Potassium 3.4 mmol/L (3.4-5.0); Sodium 138 mmol/L (137-145)
[2022-04-18 15:18] LABS: Alanine Aminotransferase 24 U/L (6-35); Albumin Level 4.2 g/dL (3.5-5.1); Alkaline Phosphatase 71 U/L (38-126); Aspartate Amino Transferase 32 U/L (14-36); Bilirubin,Total 0.9 mg/dL (0.2-1.3); Calcium 8.5 mg/dL (8.4-10.2); Cholesterol 194 mg/dL (0-200); Estimated Glomerular Filt Rate > 60; Glucose 147 mg/dL (65-110); HDL Direct 80 mg/dL; Triglycerides 82 mg/dL (<150)
[2022-04-18 15:28] LABS: LDL Cholesterol Direct 82 mg/dL
[2022-04-18 15:46] LABS: Creatinine Urine 254.9 mg/dL
[2022-04-18 15:48] LABS: Thyroid Stimulating Hormone Reflex 0.216 uIU/mL (0.465-4.68)
[2022-04-18 15:59] LABS: MALB Creatinine Ratio 128.3 mg/g (0-30); Microalbumin Urine Random 327.1 mg/L (0-16.7)
[2022-04-18 16:16] LABS: Free T4 Free Thyroxine Reflex 1.02 ng/dL (0.78-2.19)
[2022-04-18 16:57] LABS: Total Triiodothyronine (T3) 1.26 NG/ML (0.97-1.69)
== END 2022-04-18 14:18 | disposition home or self-care (01) ==
LOC: ANHLAB 14:21
PROVIDERS: PCP Nurse Practitioner Adult Health; Visit Provider Nurse Practitioner
DX: E13.9 Other specified diabetes mellitus without complications (principal); E78.5 Hyperlipidemia, unspecified
CPT/HCPCS: 36415; 80053; 80061; 82043; 83036; 84439; 84443; 84480

== ENCOUNTER 2022-08-14 13:49 | Outpatient (CLI) | payer OTHER, SELFPAY ==
[2022-08-14 14:22] LABS: Alanine Aminotransferase 21 U/L (6-35); Albumin Level 4.1 g/dL (3.5-5.1); Alkaline Phosphatase 71 U/L (38-126); Anion Gap 8 mmol/L (8-16); Aspartate Amino Transferase 32 U/L (14-36); Bilirubin,Total 0.3 mg/dL (0.2-1.3); Blood Urea Nitrogen 12 mg/dL (7-17); Calcium 8.6 mg/dL (8.4-10.2); Carbon Dioxide 28 mmol/L (22-30); Chloride 104 mmol/L (98-107); Cholesterol 173 mg/dL (0-200); Estimated Glomerular Filt Rate > 60; Glucose 85 mg/dL (65-110); HDL Direct 61 mg/dL; Potassium 3.5 mmol/L (3.4-5.0); Sodium 140 mmol/L (137-145); Triglycerides 42 mg/dL (<150)
[2022-08-14 14:33] LABS: LDL Cholesterol Direct 108 mg/dL
[2022-08-14 14:52] LABS: Thyroid Stimulating Hormone 0.294 uIU/mL (0.465-4.680)
[2022-08-14 14:54] LABS: Hemoglobin A1C 7.6 % (<5.7)
[2022-08-14 15:01] LABS: Free T4 Free Thyroxine 1.13 ng/mL (0.78-2.19)
[2022-08-14 15:39] LABS: MALB Creatinine Ratio 122.1 mg/g (0-30)
== END 2022-08-14 13:50 | disposition home or self-care (01) ==
PROVIDERS: Visit Provider Internal Medicine Endocrinology, Diabetes & Metabolism
DX: E78.5 Hyperlipidemia, unspecified (principal); E13.9 Other specified diabetes mellitus without complications
CPT/HCPCS: 36415; 80053; 80061; 82043; 83036; 84439; 84443

== ENCOUNTER 2023-04-23 14:17 | Outpatient (CLI) | payer OTHER, SELFPAY ==
[2023-04-23 15:34] LABS: Hematocrit 37.9 % (37.0-47.0); Hemoglobin 12.1 g/dL (12.0-15.0); Mean Corpuscular HGB Conc 31.9 g/dl (32-36); Mean Corpuscular Volume 90.9 fl (80-100); Mean Platelet Volume 11.1 fl (7.4-10.4); Platelet Count Result 254 k/mm3 (150-375); Red Blood Count 4.17 M/mm3 (4.2-5.4); Red Cell Distribution Width 12.6 % (11.5-14.5); White Blood Count 4.9 K/mm3 (4.5-10.0)
[2023-04-23 15:40] LABS: Appearance Urine Clear (Clear); Bacteria Urine None Seen /hpf; Bilirubin Urine Negative (Negative); Blood Urine Negative (Negative); Color Urine Yellow (Yellow); Glucose Urine UA Negative (Negative); Ketones Urine Negative (Negative); Leukocyte Esterase Ur Negative LEU/UL (NEGATIVE); Nitrate Urine Negative (Negative); Non Pathogenic Casts 0-2; Protein Urine Trace mg/dL (Negative); RBC Urine 0-2 /hpf (0-2); Specific Grav Ur 1.019 (1.001-1.035); Squamous Epithelial Cell Urine Occasional /hpf (Few); WBC Urine 0-5 /hpf (0-3)
[2023-04-23 15:44] LABS: Alanine Aminotransferase 16 U/L (6-35); Albumin Level 3.6 g/dL (3.5-5.1); Alkaline Phosphatase 54 U/L (38-126); Anion Gap 5 mmol/L (8-16); Aspartate Amino Transferase 24 U/L (14-36); Bilirubin,Total 0.1 mg/dL (0.2-1.3); Blood Urea Nitrogen 6 mg/dL (7-17); Calcium 8.6 mg/dL (8.4-10.2); Carbon Dioxide 26 mmol/L (22-30); Chloride 109 mmol/L (98-107); Estimated Glomerular Filt Rate > 60; Glucose 100 mg/dL (65-110); Potassium 3.3 mmol/L (3.4-5.0); Sodium 140 mmol/L (137-145)
[2023-04-23 15:56] LABS: Add Urine Microscopic? YES
[2023-04-23 17:13] LABS: Creatinine Urine 212.6 mg/dL
[2023-04-23 17:17] LABS: MALB Creatinine Ratio 34.8 mg/g (0-30)
== END 2023-04-23 14:18 | disposition home or self-care (01) ==
LOC: ANHLAB 14:19
PROVIDERS: Visit Provider Internal Medicine Nephrology
DX: N18.1 Chronic kidney disease, stage 1 (principal)
CPT/HCPCS: 36415; 80053; 81001; 82043; 85027

== ENCOUNTER 2024-01-17 13:17 | Outpatient (CLI) | payer OTHER, SELFPAY ==
[2024-01-17 14:14] LABS: Albumin Level 4.4 g/dL (3.5-5.1); Anion Gap 7 mmol/L (4-12); Blood Urea Nitrogen 11 mg/dL (7-17); Calcium 8.7 mg/dL (8.4-10.2); Carbon Dioxide 25 mmol/L (22-30); Chloride 104 mmol/L (98-107); Cholesterol 170 mg/dL (0-200); Estimated Glomerular Filt Rate > 60; Glucose 197 mg/dL (65-110); HDL Direct 71 mg/dL; Magnesium 1.9 mg/dL (1.6-2.3); Phosphorus 3.3 mg/dL (2.5-4.5); Potassium 3.7 mmol/L (3.4-5.0); Sodium 136 mmol/L (137-145); Triglycerides 49 mg/dL (<150)
[2024-01-17 14:25] LABS: LDL Cholesterol Direct 79 mg/dL
[2024-01-17 16:24] LABS: Vitamin D 25 Hydroxy 17.3 ng/mL
[2024-01-17 16:29] LABS: Total Protein Urine Random 8 mg/dL
[2024-01-17 16:32] LABS: Creatinine Urine 279.1 mg/dL
[2024-01-17 16:36] LABS: MALB Creatinine Ratio 38.6 mg/g (0-30); Microalbumin Urine Random 107.6 mg/L (0-16.7)
[2024-01-17 16:37] LABS: Thyroid Stimulating Hormone Reflex 0.783 uIU/mL (0.465-4.68)
[2024-01-17 17:27] LABS: Hemoglobin A1C 8.5 % (<5.7)
== END 2024-01-17 13:18 | disposition home or self-care (01) ==
LOC: ANHLAB 13:18
PROVIDERS: Visit Provider Internal Medicine Nephrology
DX: E11.22 Type 2 diabetes mellitus with diabetic chronic kidney disease (principal); I12.9 Hypertensive chronic kidney disease with stage 1 through stage 4 chronic kidney disease, or unspecified chronic kidney disease; N18.1 Chronic kidney disease, stage 1; R80.1 Persistent proteinuria, unspecified
CPT/HCPCS: 36415; 80061; 80069; 81050; 82043; 82306; 83036; 83735; 84156; 84443

== ENCOUNTER 2024-02-07 20:15 | Observation (INO) | payer OTHER, SELFPAY ==
--- NOTE | ~2024-02-07 | XR_ITS ---
EXAMINATION: XR chest 2V Exam Date/Time: 02/07/2024 20:55 [employer]OTH W[employer]ER BACK TENDER HISTORY: chest pain RIGHT SIDED Comparison: None. RESULT: Lines, tubes, and devices: None. Lungs and pleura: Lordotic positioning. Otherwise clear. Cardiomediastinal silhouette: Unremarkable. Other: No acute osseous or upper abdominal finding. IMPRESSION: No acute cardiopulmonary process. Reviewed, dictated and finalized at location K. H WASHER BACK TENDER
--- NOTE | ~2024-02-07 | CT_ITS ---
EXAMINATION: CT abdomen pelvis w con DATE: 02/08/2024 00:45 INDICATION: Right abdominal pain. Nausea, vomiting, and diarrhea. TECHNIQUE: Computed tomography (CT) of the abdomen and pelvis was performed with 100 mL Omnipaque 350 intravenous contrast. Automated exposure control and iterative reconstruction technique were employe d. The dose-length product was 578.09 mGy-cm. COMPARISON: CT abdomen and pelvis 08/11/2020 FINDINGS: The visualized portions of the lung bases are clear without pneumonia or pleural effusion. The heart size is normal. No pericardial effusion. The liver, gallbladder, spleen, pancreas, adrenal glands, and kidneys are normal. There is an intrauterine device in expected position. There are appro ximately 4 uterine fibroids measuring up to 1.8 cm. There are no dilated loops of bowel. There is wal l thickening of colon involving the hepatic flexure and transverse colon. The appendix is normal. The re are no pathologically enlarged lymph nodes. There is physiologic fluid in the pelvis. There is mil d lumbar spondylosis. IMPRESSION: 1. Wall thickening of colon involving the hepatic flexure and transverse colon, consistent with colit is. 2. Uterine fibroids. Reviewed, dictated and finalized at location A. DENT ATHLETIC TRAINER IMPRESSION: 1. Wall thickening of colon involving the hepatic flexure and transverse colon, consistent with colitis. 2. Uterine fibroids.
[2024-02-07 20:16] VITALS: BP 105/38; PULSE 97; RESP 18; TEMP 36.6; O2SAT 100
--- NOTE | 2024-02-07 20:22 | ECG_ITS ---
Test Date: 2024-02-07 22:05:46 Measurements Intervals [place] Rate: 100 P: 70 MA: 123 QRS: 26 QRSD: 84 T: 40 QT: 391 QTc: 506 Interpretive Statements SINUS TACHYCARDIA NONSPECIFIC ST ABNORMALITY LEFT ATRIAL ENLARGEMENT [-0.15mV P-WAVE IN V1/V2] POSSIBLE RIGHT VENTRICULAR CONDUCTION DELAY [RSR (QR) IN V1/V2] POSSIBLE LEFT VENTRICULAR HYPERTROPHY [VOLTAGE CRITERIA PLUS LAE OR QRS WIDENING] ABNORMAL ECG Electronically Signed On 02-08-2024 17:12:37 INBOUND SALES MANAGER by Chad Miller M.D.
[2024-02-07 20:37] VITALS: BP 112/30
[2024-02-07 20:37] LABS: Glucose Point of Care > 500 mg/dl (65-105)
--- NOTE | 2024-02-07 22:19 | ED.NAVMDI ---
HPI - Nausea/Vomiting/Diarrhea General Chief complaint: Nausea/Vomiting/Diarrhea Stated complaint: dizzy, nausea, chest pain Time Seen by Provider: 02/07/24 21:01 Source: patient Mode of arrival: ambulatory Limitations: no limitations History of Present Illness HPI Narrative: Patient is a 38-year-old female who presents the ED with multiple complaints. Reports she is a type 1 diabetic plan out of her insulin pump last time a did not have any refills at home today. Has had elevated blood sugars today greater than 500. States she feels like she is in DKA. Does have history of previous DKA. Reports nausea, vomiting, diffuse myalgias, bilateral side pain, diarrhea, headache. Denies known fevers. Denies cough. Denies sick contacts. Related Data Home Medications ?Medication ?Instructions ?Recorded ?Confirmed ?Last Taken ?Type insulin lispro 100 unit/mL 28 unit subcut DAILY 01/24/24 01/24/24 Unknown History subcutaneous solution losartan 50 mg tablet 50 mg PO DAILY 01/24/24 01/24/24 Unknown History Allergies Allergy/AdvReac Type Severity Reaction Status Date / Time No Known Allergies Allergy Verified 01/24/24 13:09 Review of Systems Review of Systems: All systems reviewed & are unremarkable except as noted in HPI. All systems reviewed & are unremarkable except as noted in HPI and below PMFSH Past Medical History Medical History Hypercholesterolemia Diabetes mellitus Family History Family History Mother Depression Father Diabetes mellitus Hypertension Social History Social History Smoking status: Never smoker Alcohol intake: current Drinks per week: 1 Substance use: former Spiritual care concerns: No Exam Narrative: GENERAL: Mildly ill appearing, well-nourished, non-toxic, in mild acute distress. HEAD: Normocephalic, atraumatic. RESPIRATORY: Airway patent, respirations mildly tachypneic but nonlabored. Clear to auscultation bilaterally, no rales, rhonchi, wheezing. CARDIOVASCULAR: Tachycardic with regular rhythm without murmurs, rubs, or gallops. ABDOMINAL: Soft, diffuse tenderness throughout right upper/mid abdomen. No significant focal tenderness. Nondistended. Normoactive BS. MUSCULOSKELETAL: Moves all extremities. No gross deformities. No peripheral edema. SKIN: Warm, dry, normal color. NEURO: A&O X3. Speech clear. No ataxic movements. PSYCHIATRIC: Appropriate mood and affect. Normal interaction. Course Vital Signs Vital signs: Vital Signs Temperature 97.8 F 02/07/24 20:16 Pulse Rate 97 02/07/24 20:16 Respiratory Rate 18 02/07/24 20:16 Blood Pressure 105/38 L 02/07/24 20:16 Pulse Oximetry 100 02/07/24 20:16 Oxygen Delivery Room Air 02/07/24 20:16 Temperature 98.5 F 02/07/24 22:22 Pulse Rate 108 H 02/08/24 01:01 Respiratory Rate 15 02/08/24 01:01 Blood Pressure 126/58 L 02/08/24 01:01 Pulse Oximetry 100 02/08/24 01:01 Oxygen Delivery Room Air 02/07/24 20:16 MDM - Nausea/Vomiting/Diarrhea MDM Narrative Medical decision making narrative: Patient presented to ED with multiple complaints, elevated blood sugar, ran out of her insulin pump since yesterday, reporting myalgias, nausea vomiting diarrhea, abdominal pain. Patient tachycardic and tachypneic upon arrival. Blood pressure stable. Afebrile here. Initial blood sugar greater than 500. DKA workup initiated. Laboratory studies are consistent with DKA. Blood sugar on CMP 533. Anion gap of 17. Bicarb 15. Beta hydroxybutyrate is elevated to 3.95. ABG with pH 7.287. PCO2 24.6. 3+ ketones on urine sample. No signs of infection there. Initial lactic acid is elevated to 3.6. Meds are ongoing. Viral swabs are negative. CBC does show leukocytosis of 17.7, neutrophil predominance. No bandemia. Chest x-ray is clear. CT scan of abdomen/pelvis was obtained and pending given pain, N/V/D. Patient given 2 L of fluid in the ED. Insulin drip started for DKA. Repeat blood sugar approximately 1 hour later down to 411. Patient is feeling improved. CT scan of abdomen pelvis shows evidence of colitis. Will start antibiotics. Blood cultures obtained. Discussed case with Dr. Marcum, internet assessor, accepted patient to ICU. Will consult. Discussed case with Dr. Montes, hospitalist, accepted patient for admission. Patient and family in agreement with plan and need for admission. Medical Records Attestation: I reviewed the patient's medical records. Lab Data Attestation: I reviewed the patient's lab results. 02/07/24 22:40 02/08/24 00:59 Labs: Lab Results 02/07/24 02/07/24 02/07/24 Range/Units 20:35 22:40 22:41 WBC 17.7 H (4.5-10.0) K/mm3 RBC 4.14 L (4.2-5.4) M/mm3 Hgb 12.3 (12.0-15.0) g/dL Hct 37.9 (37.0-47.0) % MCV 91.5 (80-100) fl MCH 29.7 (26-34) pg MCHC 32.5 (32-36) g/dl RDW 12.8 (11.5-14.5) % Plt Count 282 (150-375) k/mm3 MPV 11.1 H (7.4-10.4) fl Immature Gran % (Auto) 0.7 H (0-0.5) % Neut % (Auto) 88.5 H (45.5-73.1) % Lymph % (Auto) 5.1 L (18.3-44.2) % [place] % (Auto) 5.5 (2.6-8.5) % Eos % (Auto) 0.0 (0-4.4) % Baso % (Auto) 0.2 (0.2-1.2) % Lymph # (Auto) 0.91 (0.9-3.2) K/mm3 [place] # (Auto) 1.0 H (0.1-0.6) K/mm3 Eos # (Auto) 0.0 (0-0.3) K/mm3 Baso # (Auto) 0.0 (0.0-0.1) K/mm3 Abs Immat Gran (auto) 0.13 H (0.00-0.031) K/mm3 Absolute Neuts (auto) 15.7 H (1.3-6.7) K/mm3 Absolute Nucleated RBC 0.000 (0.0-0.012) K/mm3 Nucleated RBC % 0.0 (0.0-0.2) % PT 14.7 (11.1-14.7) Seconds INR 1.1 APTT 22.6 (22.3-36.8) Seconds Methemoglobin (0-1.5) %THb Sodium 136 L (137-145) mmol/L Potassium 4.3 (3.4-5.0) mmol/L Chloride 104 (98-107) mmol/L Carbon Dioxide 15 L (22-30) mmol/L Anion Gap 17 H (4-12) mmol/L BUN 19 H (7-17) mg/dL Creatinine 0.80 (0.7-1.0) mg/dL Estim Creat Clear Calc 88 ml/min Estimated GFR > 60 (59 - ) Glucose 533 H* (65-110) mg/dL POC Capillary Glucose > 500 H* (65-105) mg/dl Hemoglobin A1c 8.0 H (<5.7) % Lactic Acid (0.7-2.0) mmol/L Calcium 9.0 (8.4-10.2) mg/dL Phosphorus 5.8 H (2.5-4.5) mg/dL Magnesium 2.0 (1.6-2.3) mg/dL Total Bilirubin 1.1 (0.2-1.3) mg/dL AST 32 (14-36) U/L ALT 21 (6-35) U/L Alkaline Phosphatase 90 (38-126) U/L Troponin I 0.023 (0.000-0.034) ng/mL Total Protein 7.0 (6.3-8.2) g/dL Albumin 4.3 (3.5-5.1) g/dL Lipase 49 (23-300) U/L Beta-Hydroxybutyrate/Acetoacetate 3.95 H (0.02-0.27) mmol/L Urine Color (Yellow) Urine Appearance (Clear) Urine pH (5.0-9.0) Ur Specific [place] (1.001-1.035) Urine Protein (Negative) mg/dL Urine Glucose (UA) (Negative) mg/dL Urine Ketones (Negative) mg/dL Ur Blood (Man) (Negative) Urine Nitrate (Negative) Urine Bilirubin (Negative) Urine Urobilinogen (<2.0) mg/dL Leukocyte Esterase Rfl (Negative) SAY/UL POC Urine HCG, Qual (Negative) Influenza A (RT-PCR) (Negative) Influenza B (RT-PCR) (Negative) RSV (RT-PCR) (Negative) SARS-CoV-2 RNA (RT-PCR) (Negative) 02/07/24 02/07/24 02/07/24 Range/Units 22:42 23:07 23:27 WBC (4.5-10.0) K/mm3 RBC (4.2-5.4) M/mm3 Hgb (12.0-15.0) g/dL Hct (37.0-47.0) % MCV (80-100) fl MCH (26-34) pg MCHC (32-36) g/dl RDW (11.5-14.5) % Plt Count (150-375) k/mm3 MPV (7.4-10.4) fl Immature Gran % (Auto) (0-0.5) % Neut % (Auto) (45.5-73.1) % Lymph % (Auto) (18.3-44.2) % [place] % (Auto) (2.6-8.5) % Eos % (Auto) (0-4.4) % Baso % (Auto) (0.2-1.2) % Lymph # (Auto) (0.9-3.2) K/mm3 [place] # (Auto) (0.1-0.6) K/mm3 Eos # (Auto) (0-0.3) K/mm3 Baso # (Auto) (0.0-0.1) K/mm3 Abs Immat Gran (auto) (0.00-0.031) K/mm3 Absolute Neuts (auto) (1.3-6.7) K/mm3 Absolute Nucleated RBC (0.0-0.012) K/mm3 Nucleated RBC % (0.0-0.2) % PT (11.1-14.7) Seconds INR APTT (22.3-36.8) Seconds Methemoglobin 0.3 (0-1.5) %THb Sodium (137-145) mmol/L Potassium (3.4-5.0) mmol/L Chloride (98-107) mmol/L Carbon Dioxide (22-30) mmol/L Anion Gap (4-12) mmol/L BUN (7-17) mg/dL Creatinine (0.7-1.0) mg/dL Estim Creat Clear Calc ml/min Estimated GFR (59 - ) Glucose (65-110) mg/dL POC Capillary Glucose (65-105) mg/dl Hemoglobin A1c (<5.7) % Lactic Acid (0.7-2.0) mmol/L Calcium (8.4-10.2) mg/dL Phosphorus (2.5-4.5) mg/dL Magnesium (1.6-2.3) mg/dL Total Bilirubin (0.2-1.3) mg/dL AST (14-36) U/L ALT (6-35) U/L Alkaline Phosphatase (38-126) U/L Troponin I (0.000-0.034) ng/mL Total Protein (6.3-8.2) g/dL Albumin (3.5-5.1) g/dL Lipase (23-300) U/L Beta-Hydroxybutyrate/Acetoacetate (0.02-0.27) mmol/L Urine Color Yellow (Yellow) Urine Appearance Clear (Clear) Urine pH 5.0 (5.0-9.0) Ur Specific [place] 1.025 (1.001-1.035) Urine Protein Negative (Negative) mg/dL Urine Glucose (UA) 3+ H (Negative) mg/dL Urine Ketones 3+ H (Negative) mg/dL Ur Blood (Man) Negative (Negative) Urine Nitrate Negative (Negative) Urine Bilirubin Negative (Negative) Urine Urobilinogen 0.2 (<2.0) mg/dL Leukocyte Esterase Rfl Negative (Negative) SAY/UL POC Urine HCG, Qual (Negative) Influenza A (RT-PCR) Negative (Negative) Influenza B (RT-PCR) Negative (Negative) RSV (RT-PCR) Negative (Negative) SARS-CoV-2 RNA (RT-PCR) Negative (Negative) 02/07/24 02/07/24 02/08/24 Range/Units 23:46 23:50 00:57 WBC (4.5-10.0) K/mm3 RBC (4.2-5.4) M/mm3 Hgb (12.0-15.0) g/dL Hct (37.0-47.0) % MCV (80-100) fl MCH (26-34) pg MCHC (32-36) g/dl RDW (11.5-14.5) % Plt Count (150-375) k/mm3 MPV (7.4-10.4) fl Immature Gran % (Auto) (0-0.5) % Neut % (Auto) (45.5-73.1) % Lymph % (Auto) (18.3-44.2) % [place] % (Auto) (2.6-8.5) % Eos % (Auto) (0-4.4) % Baso % (Auto) (0.2-1.2) % Lymph # (Auto) (0.9-3.2) K/mm3 [place] # (Auto) (0.1-0.6) K/mm3 Eos # (Auto) (0-0.3) K/mm3 Baso # (Auto) (0.0-0.1) K/mm3 Abs Immat Gran (auto) (0.00-0.031) K/mm3 Absolute Neuts (auto) (1.3-6.7) K/mm3 Absolute Nucleated RBC (0.0-0.012) K/mm3 Nucleated RBC % (0.0-0.2) % PT (11.1-14.7) Seconds INR APTT (22.3-36.8) Seconds Methemoglobin (0-1.5) %THb Sodium (137-145) mmol/L Potassium (3.4-5.0) mmol/L Chloride (98-107) mmol/L Carbon Dioxide (22-30) mmol/L Anion Gap (4-12) mmol/L BUN (7-17) mg/dL Creatinine (0.7-1.0) mg/dL Estim Creat Clear Calc ml/min Estimated GFR (59 - ) Glucose (65-110) mg/dL POC Capillary Glucose > 500 H* 436 H (65-105) mg/dl Hemoglobin A1c (<5.7) % Lactic Acid (0.7-2.0) mmol/L Calcium (8.4-10.2) mg/dL Phosphorus (2.5-4.5) mg/dL Magnesium (1.6-2.3) mg/dL Total Bilirubin (0.2-1.3) mg/dL AST (14-36) U/L ALT (6-35) U/L Alkaline Phosphatase (38-126) U/L Troponin I (0.000-0.034) ng/mL Total Protein (6.3-8.2) g/dL Albumin (3.5-5.1) g/dL Lipase (23-300) U/L Beta-Hydroxybutyrate/Acetoacetate (0.02-0.27) mmol/L Urine Color (Yellow) Urine Appearance (Clear) Urine pH (5.0-9.0) Ur Specific [place] (1.001-1.035) Urine Protein (Negative) mg/dL Urine Glucose (UA) (Negative) mg/dL Urine Ketones (Negative) mg/dL Ur Blood (Man) (Negative) Urine Nitrate (Negative) Urine Bilirubin (Negative) Urine Urobilinogen (<2.0) mg/dL Leukocyte Esterase Rfl (Negative) SAY/UL POC Urine HCG, Qual Negative (Negative) Influenza A (RT-PCR) (Negative) Influenza B (RT-PCR) (Negative) RSV (RT-PCR) (Negative) SARS-CoV-2 RNA (RT-PCR) (Negative) 02/08/24 02/08/24 Range/Units 00:59 02:07 WBC (4.5-10.0) K/mm3 RBC (4.2-5.4) M/mm3 Hgb (12.0-15.0) g/dL Hct (37.0-47.0) % MCV (80-100) fl MCH (26-34) pg MCHC (32-36) g/dl RDW (11.5-14.5) % Plt Count (150-375) k/mm3 MPV (7.4-10.4) fl Immature Gran % (Auto) (0-0.5) % Neut % (Auto) (45.5-73.1) % Lymph % (Auto) (18.3-44.2) % [place] % (Auto) (2.6-8.5) % Eos % (Auto) (0-4.4) % Baso % (Auto) (0.2-1.2) % Lymph # (Auto) (0.9-3.2) K/mm3 [place] # (Auto) (0.1-0.6) K/mm3 Eos # (Auto) (0-0.3) K/mm3 Baso # (Auto) (0.0-0.1) K/mm3 Abs Immat Gran (auto) (0.00-0.031) K/mm3 Absolute Neuts (auto) (1.3-6.7) K/mm3 Absolute Nucleated RBC (0.0-0.012) K/mm3 Nucleated RBC % (0.0-0.2) % PT (11.1-14.7) Seconds INR APTT (22.3-36.8) Seconds Methemoglobin (0-1.5) %THb Sodium 138 (137-145) mmol/L Potassium 4.0 (3.4-5.0) mmol/L Chloride 108 H (98-107) mmol/L Carbon Dioxide 14 L (22-30) mmol/L Anion Gap 16 H (4-12) mmol/L BUN 19 H (7-17) mg/dL Creatinine 0.90 (0.7-1.0) mg/dL Estim Creat Clear Calc 79 ml/min Estimated GFR > 60 (59 - ) Glucose 411 H (65-110) mg/dL POC Capillary Glucose 284 H (65-105) mg/dl Hemoglobin A1c (<5.7) % Lactic Acid 3.6 H (0.7-2.0) mmol/L Calcium 8.6 (8.4-10.2) mg/dL Phosphorus (2.5-4.5) mg/dL Magnesium (1.6-2.3) mg/dL Total Bilirubin (0.2-1.3) mg/dL AST (14-36) U/L ALT (6-35) U/L Alkaline Phosphatase (38-126) U/L Troponin I 0.023 (0.000-0.034) ng/mL Total Protein (6.3-8.2) g/dL Albumin (3.5-5.1) g/dL Lipase (23-300) U/L Beta-Hydroxybutyrate/Acetoacetate (0.02-0.27) mmol/L Urine Color (Yellow) Urine Appearance (Clear) Urine pH (5.0-9.0) Ur Specific [place] (1.001-1.035) Urine Protein (Negative) mg/dL Urine Glucose (UA) (Negative) mg/dL Urine Ketones (Negative) mg/dL Ur Blood (Man) (Negative) Urine Nitrate (Negative) Urine Bilirubin (Negative) Urine Urobilinogen (<2.0) mg/dL Leukocyte Esterase Rfl (Negative) SAY/UL POC Urine HCG, Qual (Negative) Influenza A (RT-PCR) (Negative) Influenza B (RT-PCR) (Negative) RSV (RT-PCR) (Negative) SARS-CoV-2 RNA (RT-PCR) (Negative) ABG Data ABG results: 02/07/24 23:27 Puncture Site Right radial ABG pH 7.287 L* ABG pCO2 24.6 L ABG pO2 100.8 H ABG PO2/FiO2 Ratio 4.80 ABG HCO3 11.5 L ABG O2 Saturation 97.1 ABG O2 Content 16.9 ABG Base Excess -13.4 A-a Gradient 19.5 Oxyhemoglobin 96.8 Carboxyhemoglobin 0.1 Reduced Hemoglobin 2.8 Total Hemoglobin 12.3 O2 Delivery Device Not Reportable O2 Liters/Min Not Reportable FiO2 21 Attestation: I personally reviewed and interpreted this ABG as follows: Imaging Data Attestation: I personally reviewed and interpreted this imaging study as follows: Radiologist's impression: STAT RAD CT abd/pelvis: Impression: There is thickening of the wall of the colon that likely represents colitis. An IUD is in good position. Masses in the uterus likely represent fibroids although are nonspecific. Simple appearing 2.2 cm right ovarian cyst. The remaining solid organs are within normal limits. No bowel obstruction. Normal appendix. No fracture. No incidental findings. ECG Data EKG #1: Attestation: I personally reviewed and interpreted this ECG as follows: ECG completion date: 02/07/24 ECG completion time: 22:05 EKG Interpretation: tachycardia (100), sinus rhythm, non-specific ST changes and other (qtc prolonged 506) Discharge Plan Discharge Clinical Impression: Lactic acidosis, Colitis DKA (diabetic ketoacidosis) Qualifiers: Diabetes mellitus type: type 1 Diabetes mellitus complication detail: without coma Qualified Code(s): E10.10 - Type 1 diabetes mellitus with ketoacidosis without coma Patient Disposition: Still a Patient Condition: Serious Patient Language: Belarusian Prescriptions: No Action insulin lispro 100 unit/mL solution 28 unit subcut DAILY Rx Instructions: plus sliding scale losartan 50 mg tablet 50 mg PO DAILY (DME) Omnipod 5 G6-G7 Intro Kt(Gen5) Cartridge See Rx Instructions .Route Qty: 1 1RF Rx Instructions: As directed (DME) Omnipod 5 G6-G7 Pods (Gen 5) Cartridge See Rx Instructions .ROUTE .MEDSUPPLY Qty: 45 2RF Rx Instructions: Change every 48-72 hours (DME) Dexcom G7 Sensor Device See Rx Instructions .ROUTE .MEDSUPPLY Qty: 9 3RF Rx Instructions: Use to monitor glcuose Gvoke HypoPen 2-Pack 1 mg/0.2 mL auto-injector 1 mg subcut ONCE Qty: 0.4 4RF Rx Instructions: may repeat once after 15 minutes if no response (DME) urine glucose-ketones test Strip See Rx Instructions .ROUTE .MEDSUPPLY Qty: 50 0RF Rx Instructions: As directed glucose [Dex4 Glucose] 4 gram tablet,chewable 16 g PO Q15M PRN (Reason: hypoglycemia) Qty: 60 1RF Rx Instructions: until symptoms of low blood sugar are controlled insulin glargine [Lantus Solostar U-100 Insulin] 100 unit/mL (3 mL) insulin pen 20 unit subcut QAM PRN (Reason: insulin pump malfunction ) Qty: 15 1RF Ozempic 1 mg/dose (4 mg/3 mL) pen injector 1 mg subcut WEEKLY 90 Days Qty: 9 4RF atorvastatin 20 mg Tablet 20 mg PO DAILY Qty: 30 2RF (DME) blood-glucose meter [OneTouch Verio Flex meter] [facility] [place] Qty: 1 0RF Rx Instructions: May substitute to in-stock meter and/or covered by insurance. Use As Directed (DME) OneTouch Verio test strips Strip Qty: 1 0RF Rx Instructions: May substitute to in-stock and/or covered by insurance strips. Use As Directed (DME) pen needle, diabetic [BD Ultra-Fine Julia Pen Needle] 32 gauge x 5/32 Needle Qty: 1 2RF Rx Instructions: May substitute to meet patient needs. Use As Directed (DME) lancets [OneTouch Delica Plus Lancet] 30 gauge Misc Qty: 1 0RF Rx Instructions: May substitute to in-stock and/or covered by insurance lancets. Use As Directed Follow-up/Referrals: PHYSICIAN NOT ON STAFF,NONSTAFF [Primary Care Provider] -
[2024-02-07 22:22] VITALS: BP 119/50; PULSE 108; RESP 26; TEMP 36.9; O2SAT 100
[2024-02-07 22:49] LABS: Add Urine Microscopic? NO; Appearance Urine Clear (Clear); Bilirubin Urine Negative (Negative); Blood Urine Negative (Negative); Color Urine Yellow (Yellow); Glucose Urine UA 3+ mg/dL (Negative); Ketones Urine 3+ mg/dL (Negative); Leukocyte Esterase Ur Negative LEU/UL (Negative); Nitrate Urine Negative (Negative); Protein Urine Negative (Negative); Specific Grav Ur 1.025 (1.001-1.035); Urobilinogen Urine 0.2 mg/dL (<2.0)
[2024-02-07 22:49] LABS: Basophils Percent Auto 0.2 % (0.2-1.2); Hematocrit 37.9 % (37.0-47.0); Hemoglobin 12.3 g/dL (12.0-15.0); Immature Granulocyte Absolute 0.13 K/mm3 (0.00-0.031); Immature Granulocyte Percent A 0.7 % (0-0.5); Lymphocytes Absolute Auto 0.91 K/mm3 (0.9-3.2); Lymphocytes Percent Auto 5.1 % (18.3-44.2); Mean Corpuscular HGB Conc 32.5 g/dl (32-36); Mean Corpuscular Hemoglobin 29.7 pg (26-34); Mean Corpuscular Volume 91.5 fl (80-100); Mean Platelet Volume 11.1 fl (7.4-10.4); Monocytes Percent Auto 5.5 % (2.6-8.5); Neutrophils Absolute Auto 15.7 K/mm3 (1.3-6.7); Neutrophils Percent Auto 88.5 % (45.5-73.1); Platelet Count Result 282 k/mm3 (150-375); Red Blood Count 4.14 M/mm3 (4.2-5.4); Red Cell Distribution Width 12.8 % (11.5-14.5); White Blood Count 17.7 K/mm3 (4.5-10.0)
[2024-02-07] MEDS: SODIUM CHLORIDE 0.9% IV 1,000 ML 999 ML IV CONT ×2 (22:50)
[2024-02-07 23:04] LABS: Alanine Aminotransferase 21 U/L (6-35); Albumin Level 4.3 g/dL (3.5-5.1); Alkaline Phosphatase 90 U/L (38-126); Anion Gap 17 mmol/L (4-12); Aspartate Amino Transferase 32 U/L (14-36); Bilirubin,Total 1.1 mg/dL (0.2-1.3); Blood Urea Nitrogen 19 mg/dL (7-17); Carbon Dioxide 15 mmol/L (22-30); Chloride 104 mmol/L (98-107); Estimated CRCL calculation 88 ml/min; Estimated Glomerular Filt Rate > 60; Glucose 533 mg/dL (65-110); Lipase 49 U/L (23-300); Phosphorus 5.8 mg/dL (2.5-4.5); Potassium 4.3 mmol/L (3.4-5.0); Sodium 136 mmol/L (137-145)
[2024-02-07 23:12] LABS: Troponin I 0.023 ng/mL (0.000-0.034)
[2024-02-07 23:15] LABS: INR 1.1; Partial Thromboplastin Time 22.6 Seconds (22.3-36.8); Prothrombin Time 14.7 Seconds (11.1-14.7)
[2024-02-07] MEDS: ACETAMINOPHEN 500 MG TABLET 1000 MG PO (23:24)
[2024-02-07 23:37] LABS: Beta-Hydroxybutyrate/Acetoacetate 3.95 mmol/L (0.02-0.27)
[2024-02-07 23:40] LABS: Alveolar/Arterial O2 Gradient 19.5 mmHg; Base Excess ABG -13.4 mEq/l (+/-2.0); Carboxyhemoglobin 0.1 % THb (0-2.0); Fractional Inspired Oxygen 21 %; HCO3 ABG 11.5 mEq/l (22.0-26.0); Methemoglobin ABG 0.3 %THb (0-1.5); Oxygen Content ABG 16.9 %vol (16.0-22.0); Oxygen Saturation ABG 97.1 % (95.0-100.0); Oxyhemoglobin 96.8 % THb (90.0-100.0); PCO2 ABG 24.6 mmHg (35.0-45.0); PO2 ABG 100.8 mmHg (80.0-100.0); Reduced Hemoglobin 2.8 %THb (0-5.0); Total Hemoglobin 12.3 g/dL (12.0-18.0)
[2024-02-07] MEDS: INSULIN HUMAN REGULAR (*BKC) 100 UNITS in SODIUM CHLORIDE 0.9% IV 99 ML 8.18 UNITS IV CONT (23:41)
[2024-02-07 23:42] LABS: Modified Allen's Test Pass; Site Drawn RIGHT RADIAL; pH ABG 7.287 (7.350-7.450)
[2024-02-07 23:49] LABS: Glucose Point of Care > 500 mg/dl (65-105)
[2024-02-07 23:50] LABS: Influenza A QL RT-PCR Negative (Negative); Influenza B QL RT-PCR Negative (Negative); RSV RNA, RT-PCR Negative (Negative); SARS-CoV-2 RNA PCR Negative (Negative)
[2024-02-07 23:51] LABS: BEDSIDEPREGUCG Negative (Negative)
[2024-02-08] VITALS (10 sets, daily range): BP systolic 94–135; BP diastolic 43–71; PULSE 92–109; RESP 15–21; TEMP 36.6–37; O2SAT 98–100; BMI 29.2; BMI 29.3
--- NOTE | 2024-02-08 | ECHO_ITS ---
Patient Info Name: Leeann Sotelo Age: 38 years : 1985 Gender: Female Ht: 66 in Wt: 181 lbs BSA: 1.98 m2 HR: 109 bpm BP: 135 / 60 mmHg Heart Rhythm: Sinus Rhythm Technical Quality: Good Exam Date: 02/08/2024 1:22 PM Exam Location: Echo Lab Patient Status: Inpatient Admit Date: 02/08/2024 Staff Ordering Physician: Radu Marcum MD Machine Applicator Cementer: Tory Galindo RDCS Attending Provider: Rosalia Montes MD Referring Physician: Jossue BAUGH; Exam Type: CA echo doppler color flow Study Info Complete two-dimensional, color flow and Doppler transthoracic echocardiogram is performed. Summary 1. Complete two-dimensional, color flow and Doppler transthoracic echocardiogram is performed. 2. There is normal biventricular systolic function. 3. There is no significant valvular disease. 4. Normal inferior vena cava with <50% collapse upon inspiration consistent with elevated right atrial pressure, 8 mmHg. Left Ventricle The left ventricle is normal in size and systolic function. The left ventricular ejection fraction is visually estimated to be 60-65%. Right Ventricle The right ventricle is normal in size and systolic function. Left Atria The left atrium is normal size. Right Atria The right atrium is normal size. Atrial Septum The atrial septum is not well visualized. Aortic Valve The aortic valve is trileaflet and opens well. There is no significant aortic regurgitation. Pulmonic Valve The pulmonic valve is grossly normal. There is no significant pulmonic valve regurgitation by color doppler. Mitral Valve The mitral valve is normal. There is trace mitral regurgitation. Tricuspid Valve The tricuspid valve is normal. There is trace tricuspid regurgitation. Pericardium/Pleural Pericardium is normal in appearance with no evidence for significant pericardial effusion. Inferior Vena Cava Normal inferior vena cava with <50% collapse upon inspiration consistent with elevated right atrial pressure, 8 mmHg. Aorta The aortic root at the level of the sinus of Valsalva measures 2.4 cm in diameter. Left Ventricular Outflow Tract Name Value Normal LVOT 2D LVOT Diameter 1.9 cm LVOT Doppler LVOT Peak Gradient 7 mmHg LVOT Mean Gradient 4 mmHg LVOT VTI 22 cm LVOT VTI/AV VTI Ratio 0.7 LVOT Stroke Volume 64 ml LVOT CO 5.7 l/min LVOT CI 2.9 l/min/m2 Pulmonic Valve Name Value Normal PV Doppler PV Peak Gradient 4 mmHg PV Regurgitation Doppler VT Peak End Diastolic Velocity 83 cm/s Mitral Valve Name Value Normal MV Doppler MV Peak Gradient 5 mmHg MV Mean Gradient 2 mmHg MV Decel [place] 529 cm/s2 MV PHT 64 ms MV Area (PHT) 3.4 cm2 4.0-5.0 MV Area (Cont Eq VTI) 2.4 cm2 MV Regurgitation Doppler MR Peak Gradient 102 mmHg MV Diastolic Function MV E Peak Velocity 117 cm/s MV A Peak Velocity 65 cm/s MV E/A 1.8 MV Decel Time 222 ms MV Annular TDI MV E/e' (Septal) 12.7 <=8.0 MV E/e' (Lateral) 9.6 <=8.0 MV E/e' (Average) 11.1 Tricuspid Valve Name Value Normal Estimated PAP/RSVP RA Pressure 8 mmHg <=5 Aortic Valve Name Value Normal AV Doppler AV Peak Velocity 194 cm/s AV Peak Gradient 15 mmHg AV Mean Gradient 7 mmHg AV VTI 34 cm AV Area (Cont Eq VTI) 1.9 cm2 >=3.0 AV Area (Cont Eq Adam) 1.9 cm2 AV Regurgitation 2D LVOT Area 2.9 cm2 Ventricles Name Value Normal LV Dimensions 2D/MM IVS Diastolic Thickness (2D) 0.9 cm 0.6-1.0 LVID Diastole (2D) 4.6 cm 3.8-5.2 LVIW Diastolic Thickness (2D) 0.9 cm 0.6-0.9 LVID Systole (2D) 3.3 cm 2.2-3.5 LVOT Diameter 1.9 cm LV Mass (2D Cubed) 137.39 g 67.00-162.00 LV Mass Index (2D Cubed) 69 g/m2 43-95 Relative Wall Thickness (2D) 0.39 LV Fractional Shortening/Ejection Fraction 2D/MM LV Fractional Shortening (2D) 27 % 27-45 LV EF (2D Teicholz) 53 % 54-74 LV Diastolic Volume (4C MOD) 96 ml LV EF (4C MOD) 68 % LV Diastolic Length (4C) 8.6 cm LV Systolic Length (4C) 6.4 cm LV Stroke Volume (4C MOD) 65 ml Atria Name Value Normal LA Dimensions LA Volume (4C A-L) 36 ml RA Dimensions RA Area (4C) 13.6 cm2 <=18.0 Report Signatures
[2024-02-08 01:00] LABS: Glucose Point of Care 436 mg/dl (65-105)
[2024-02-08 01:12] LABS: Lactic Acid Reflex 3.6 mmol/L (0.7-2.0)
[2024-02-08 01:13] LABS: Anion Gap 16 mmol/L (4-12); Blood Urea Nitrogen 19 mg/dL (7-17); Calcium 8.6 mg/dL (8.4-10.2); Carbon Dioxide 14 mmol/L (22-30); Chloride 108 mmol/L (98-107); Estimated CRCL calculation 79 ml/min; Estimated Glomerular Filt Rate > 60; Glucose 411 mg/dL (65-110); Sodium 138 mmol/L (137-145)
[2024-02-08 02:11] LABS: Glucose Point of Care 284 mg/dl (65-105)
[2024-02-08 02:17] LABS: Troponin I 0.023 ng/mL (0.000-0.034)
[2024-02-08 03:14] LABS: Glucose Point of Care 210 mg/dl (65-105)
[2024-02-08] MEDS: PIPERACILLN/TAZ 3.375GM/NS50ML 3.375 GM/50 ML BAG IVPB ×3 (03:57→20:44)
[2024-02-08 04:02] LABS: Reflex Lactic Acid Yes or No Add Lactic
[2024-02-08] MEDS: DEXTROSE 5% 1,000 ML 1,000 ML 100 ML IVPB (04:21)
[2024-02-08 04:27] LABS: Glucose Point of Care 161 mg/dl (65-105)
--- NOTE | 2024-02-08 04:50 | ADMGEN ---
This patient, Leeann Sotelo, was admitted to Intensive Care Unit-10. Patient/family oriented to hospital policies and general routines including ID bracelet, bed and alarms, visiting hours, pain management, procedures, bathroom and other care routines, personal items, smoking policy, room service/diet, and visiting hours. Information on how to activate the Rapid Response Team has been discussed. Patient/Family are encouraged to report perceived risks to care and to ask questions if they do not understand what they are told or what they should do.
[2024-02-08 05:11] LABS: Glucose Point of Care 144 mg/dl (65-105)
[2024-02-08 05:54] LABS: Glucose Point of Care 174 mg/dl (65-105)
[2024-02-08 06:20] LABS: Lactic Acid 1.5 mmol/L (0.7-2.0)
[2024-02-08 06:29] LABS: Anion Gap 6 mmol/L (4-12); Blood Urea Nitrogen 16 mg/dL (7-17); Calcium 8.3 mg/dL (8.4-10.2); Carbon Dioxide 18 mmol/L (22-30); Chloride 112 mmol/L (98-107); Estimated CRCL calculation 88 ml/min; Estimated Glomerular Filt Rate > 60; Glucose 165 mg/dL (65-110); Potassium 3.3 mmol/L (3.4-5.0); Sodium 136 mmol/L (137-145)
[2024-02-08] MEDS: KCL 20 MEQ/D5/0.45% SOD CHL 1,000 ML 150 ML IV CONT (06:31)
[2024-02-08 06:37] LABS: Troponin I 0.068 ng/mL (0.000-0.034)
[2024-02-08 07:22] LABS: Glucose Point of Care 181 mg/dl (65-105)
--- NOTE | 2024-02-08 07:59 | P.HP_ITS ---
H&P: HPI History of Present Illness Date/Time: 02/08/24 07:59 Chief Complaint: nausea vomiting chest pain Narrative: Patient is a 38-year-old female who presents the ED with multiple complaints. Reports she is a type 1 diabetic plan out of her insulin pump And did not refill. As she was out of town. She already had symptoms of DKA and came to the ER for evaluation. She Does have history of previous DKA. Reports nausea, vomiting, diffuse myalgias, bilateral side pain, diarrhea, headache. Denies known fevers. Denies cough. Denies sick contacts. Review of Systems Review of Systems: - CONSTITUTIONAL: Denies weight loss, fe ofelia and chills. - HEENT: Denies changes in vision and he aring - RESPIRATORY: Denies SOB and cough. - CV: Denies palpitations and reports CP . - GI: Denies abdominal pain, reports ilene sea, vomiting and denies diarrhea. - : Denies dysuria and urinary frequen cy. - MSK: Denies myalgia and joint pain. - SKIN: Denies rash and pruritus. - NEUROLOGICAL: Denies headache and sync ope. - PSYCHIATRIC: Denies recent changes in mood. Denies anxiety and depression. [facility] Past Medical History Medical History Hypercholesterolemia Diabetes mellitus Family History Family History Mother Depression Father Diabetes mellitus Hypertension Social History Social History Smoking status: Former smoker Alcohol intake: current Drinks per week: 1 Substance use: never Do You Feel Safe in your Home?: Yes Lack of Transportation: No Lack of Food: Never True Current Housing: I Have Housing Concerned About Future Housing: No Difficulty Paying Gas/Electric Bills: No Difficulty Paying for Meds: No Currently Unemployed: No Education: Associate Degree Difficulty w/ Childcare or Family Care: No Spiritual care concerns: No Meds Home Medications and Allergies Home Medications ?Medication ?Instructions ?Recorded ?Confirmed ?Type atorvastatin 20 mg tablet 20 mg PO DAILY #30 tabs 10/13/20 02/08/24 Rx lancets 30 gauge (OneTouch Delica #1 pkg 10/13/20 02/08/24 Rx Plus Lancet) pen needle, diabetic 32 gauge x #1 pkg 10/13/20 02/08/24 Rx /32 (BD Ultra-Fine Julia Pen Needle) blood-glucose sensor (Dexcom G7 #9 ea 01/24/24 02/08/24 Rx Sensor device) glucose 4 gram chewable tablet 16 g (4 x 4 gram) PO Q15M PRN 01/24/24 02/08/24 Rx (Dex4 Glucose) hypoglycemia #60 tabs insulin glargine 100 unit/mL (3 20 unit (0.2 mL) subcut QAM PRN 01/24/24 02/08/24 Rx mL) subcutaneous pen (Lantus insulin pump malfunction #15 mL Solostar U-100 Insulin) insulin lispro 100 unit/mL 28 unit subcut DAILY 01/24/24 02/08/24 History subcutaneous solution insulin pump cart,auto,BT,G6/7 #45 ea 01/24/24 02/08/24 Rx (Omnipod 5 G6-G7 Pods (Gen 5) subcutaneous cartridge) insulin pump cartridge,auto #1 ea 01/24/24 02/08/24 Rx dose,BT,G6/G7 with controller subcutaneous (Omnipod 5 G6-G7 Intro Kit(Gen 5) subcutaneous cartridge and controller) losartan 50 mg tablet 50 mg PO DAILY 01/24/24 02/08/24 History semaglutide 1 mg/dose (4 mg/3 mL) 1 mg (0.75 mL) subcut WEEKLY 90 01/24/24 02/08/24 Rx subcutaneous pen injector (Ozempic) days #9 mL glucagon 1 mg/0.2 mL subcutaneous 1 mg subcut ONCE PRN low blood 02/08/24 02/08/24 History auto-injector (Gvoke HypoPen sugar 2-Pack) Allergies Allergy/AdvReac Type Severity Reaction Status Date / Time No Known Allergies Allergy Verified 01/24/24 13:09 Vital Signs Vital Signs - 24 hr 02/07/24 20:16 02/07/24 20:37 02/07/24 22:22 Temperature 97.8 F 98.5 F Pulse Rate 97 108 H Respiratory Rate 18 26 H Blood Pressure 105/38 L 112/30 L 119/50 L Pulse Oximetry 100 100 Oxygen Delivery Room Air 02/08/24 01:01 02/08/24 03:23 02/08/24 05:07 Temperature Pulse Rate 108 H 103 H 103 H Respiratory Rate 15 15 15 Blood Pressure 126/58 L 134/58 L Pulse Oximetry 100 100 100 Oxygen Delivery Room Air 02/08/24 06:00 02/08/24 06:00 Temperature 98.3 F Pulse Rate 99 99 Respiratory Rate 20 Blood Pressure 94/70 L Pulse Oximetry 100 Oxygen Delivery Exam Narrative: GENERAL: well-nourished, non-toxic, In no acute distress HEAD: Normocephalic, atraumatic. RESPIRATORY: Airway patent, respirations nonlabored. Clear to auscultation bilaterally, no rales, rhonchi, wheezing. CARDIOVASCULAR: regular rate with regular rhythm without murmurs, rubs, or gallops. ABDOMINAL: Soft, nontender No significant focal tenderness. Nondistended. Normoactive BS. MUSCULOSKELETAL: Moves all extremities. No gross deformities. No peripheral edema. SKIN: Warm, dry, normal color. NEURO: A&O X3. Speech clear. No ataxic movements. PSYCHIATRIC: Appropriate mood and affect. Normal interaction. H&P: Results Labs Labs: Short CBC 02/07/24 Range/Units 22:40 WBC 17.7 H (4.5-10.0) K/mm3 Hgb 12.3 (12.0-15.0) g/dL Hct 37.9 (37.0-47.0) % Plt Count 282 (150-375) k/mm3 [facility] 02/07/24 02/08/24 02/08/24 22:40 00:59 06:05 Sodium 136 L 138 136 L Potassium 4.3 4.0 3.3 L Chloride 104 108 H 112 H Carbon Dioxide 15 L 14 L 18 L BUN 19 H 19 H 16 Creatinine 0.80 0.90 0.80 Glucose 533 H* 411 H 165 H Calcium 9.0 8.6 8.3 L Cardiac Enzymes 02/07/24 02/08/24 02/08/24 Range/Units 22:40 00:59 06:05 Troponin I 0.023 0.023 0.068 H* D (0.000-0.034) ng/mL Liver Function 02/07/24 Range/Units 22:40 Total Bilirubin 1.1 (0.2-1.3) mg/dL AST 32 (14-36) U/L ALT 21 (6-35) U/L Alkaline Phosphatase 90 (38-126) U/L Albumin 4.3 (3.5-5.1) g/dL Urine 02/07/24 Range/Units 22:42 Urine Color Yellow (Yellow) Urine Appearance Clear (Clear) Urine pH 5.0 (5.0-9.0) Ur Specific [place] 1.025 (1.001-1.035) Urine Protein Negative (Negative) mg/dL Urine Glucose (UA) 3+ H (Negative) mg/dL Assessment and Plan Assessment and plan (1) Elevated troponin: Code(s): R79.89 - Other specified abnormal findings of blood chemistry Status: Acute (2) Colitis: Code(s): K52.9 - Noninfective gastroenteritis and colitis, unspecified Status: Acute (3) Lactic acidosis: Code(s): E87.20 - Acidosis, unspecified Status: Acute (4) DKA (diabetic ketoacidosis): Qualifiers: Diabetes mellitus complication detail: without coma Diabetes mellitus type: type 1 Qualified Code(s): E10.10 - Type 1 diabetes mellitus with ketoacidosis without coma Code(s): E11.10 - Type 2 diabetes mellitus with ketoacidosis without coma Status: Acute Plan Patient presented to ED with multiple complaints, elevated blood sugar, ran out of her insulin pump since yesterday, reporting myalgias, nausea vomiting diarrhea, abdominal pain. Patient tachycardic and tachypneic upon arrival. Blood pressure stable. Afebrile here. Initial blood sugar greater than 500. DKA workup initiated. Laboratory studies are consistent with DKA. Blood sugar on CMP 533. Anion gap of 17. Bicarb 15. Beta hydroxybutyrate is elevated to 3.95. ABG with pH 7.287. PCO2 24.6. 3+ ketones on urine sample. No signs of infection there. Initial lactic acid is elevated to 3.6. Meds are ongoing. Viral swabs are negative. CBC does show leukocytosis of 17.7, neutrophil predominance. No bandemia. Chest x-ray is clear. CT scan of abdomen/pelvis With findings of colitis. Patient given 2 L of fluid in the ED. Insulin drip started for DKA. Repeat blood sugar approximately 1 hour later down to 411. Patient is feeling improved. she has been transitioned from drip earlier today per Critical Care. She has an Omnipod at home which she will bring me transition to Omnipod while here in the hospital. DKA protocol as ordered Elevated troponin cardiology has been consulted. Leukocytosis follow blood culture started on Zosyn Hyperlipidemia DVT prophylaxis Lovenox Code status full code Hospitalist MIPS Advance Care Plan I have confirmed that the patient's Advanced Care Plan is present, code status is documented, or surrogate decision maker is listed in patient medical record.: Yes Medication Reconciliation I have utilized all available resources to obtain, update and review the patients current medications (includes all prescriptions, OTC, herbals, cannabis, and nutritional supplements).: Yes
--- NOTE | 2024-02-08 08:13 | ECG_ITS ---
Test Date: 2024-02-08 08:39:20 Measurements Intervals [place] Rate: 102 P: 60 VA: 130 QRS: 22 QRSD: 82 T: 28 QT: 381 QTc: 497 Interpretive Statements SINUS TACHYCARDIA POSSIBLE LEFT ATRIAL ENLARGEMENT [-0.1mV P WAVE IN V1/V2] POSSIBLE RIGHT VENTRICULAR CONDUCTION DELAY [RSR (QR) IN V1/V2] NONSPECIFIC T-WAVE ABNORMALITY ABNORMAL ECG Electronically Signed On 02-08-2024 17:21:02 VISCOSITY TESTER by Chad Miller M.D.
[2024-02-08 08:16] LABS: Glucose Point of Care 210 mg/dl (65-105)
[2024-02-08 08:25] LABS: MRSA (PCR) NOT DETECTED (NOT DETECTE)
[2024-02-08] MEDS: INSULIN GLARGINE (*BKC) 100 UNITS/ML 20 UNITS SUB-Q (08:50)
[2024-02-08] MEDS: POTASSIUM CHLORIDE 20 MEQ PACKET (FOR LIQUID) 40 MEQ PO (08:50)
[2024-02-08] MEDS: ASPIRIN 325 MG ENTERIC TABLET PO (08:50)
[2024-02-08] MEDS: LACTATED RINGERS 1,000 ML 999 ML IV CONT (08:54)
[2024-02-08 09:10] LABS: Glucose Point of Care 206 mg/dl (65-105)
[2024-02-08] MEDS: LIDOCAINE 2% VISC SOLN 30 ML, ALUMINUM/MAGNESIUM/SIMETH SUSP 30 ML, diphenhydrAMINE HCl... PO ×2 (09:24→16:05)
[2024-02-08 09:59] LABS: Anion Gap 1 mmol/L (4-12); Blood Urea Nitrogen 16 mg/dL (7-17); Calcium 8.2 mg/dL (8.4-10.2); Carbon Dioxide 24 mmol/L (22-30); Chloride 111 mmol/L (98-107); Estimated CRCL calculation 100 ml/min; Estimated Glomerular Filt Rate > 60; Glucose 232 mg/dL (65-110); Potassium 4.4 mmol/L (3.4-5.0); Sodium 136 mmol/L (137-145)
[2024-02-08 10:14] LABS: Troponin I 0.099 ng/mL (0.000-0.034)
--- NOTE | 2024-02-08 11:15 | P.CONIN_ITS ---
Assessment and Plan Assessment and plan (1) DKA (diabetic ketoacidosis): Qualifiers: Diabetes mellitus complication detail: without coma Diabetes mellitus type: type 1 Qualified Code(s): E10.10 - Type 1 diabetes mellitus with ketoacidosis without coma Code(s): E11.10 - Type 2 diabetes mellitus with ketoacidosis without coma Status: Acute Assessment and Plan: 02/06: Patient presented with abdominal pain, nausea, vomiting, elevated blood sugar, was found to be in DKA, given 2 L IV fluid bolus in the ER and started on insulin drip per the DKA protocol and transferred to the ICU for further management -this morning again repeated a 1 L IV fluid bolus -anion gap is closed, will transition patient to long-acting insulin, sliding scale insulin and insulin with meals -DC insulin infusion per protocol after giving Lantus -will start diabetic diet (2) Diabetes mellitus: Code(s): E11.9 - Type 2 diabetes mellitus without complications Status: Acute Assessment and Plan: Hemoglobin A1c was 8.0 -patient takes insulin pump at home and when she is out of it she takes Lantus. (3) Hypercholesterolemia: Code(s): E78.00 - Pure hypercholesterolemia, unspecified Status: Acute Assessment and Plan: Will start home atorvastatin (4) Colitis: Code(s): K52.9 - Noninfective gastroenteritis and colitis, unspecified Status: Acute Assessment and Plan: Patient presented with abdominal pain, CT scan of the abdomen and pelvis showed wall thickening of colon involving the hepatic flexure and transverse colon consistent with colitis, uterine fibroid. -patient started on Zosyn, will continue for now (5) Elevated troponin: Code(s): R79.89 - Other specified abnormal findings of blood chemistry Status: Acute Assessment and Plan: 02/07/2024: Patient presented with chest pain, nausea, vomiting, abdominal pain, found to be in DKA. In the ER his troponins were obtained x3. Elevated troponin this morning, have asked Cardiology to evaluate the patient, patient received aspirin 325 mg x1 -consulted Cardiology -will check of the require echocardiogram Plan DVT prophylaxis: Therapeutic Lovenox x1 Stress ulcer prophylaxis: Not indicated Nutrition: Diabetic diet Code Status: Full code Critical Care Time Spent: 49 minutes Due to a high probability of clinically significant, life threatening deterioration, the patient required my highest level of preparedness to intervene emergently and I personally spent this critical care time directly and personally managing the patient. This critical care time included obtaining a history; examining the patient; pulse oximetry; ordering and review of studies; arranging urgent treatment with development of a management plan; evaluation of patient's response to treatment; frequent reassessment; and discussions with other providers. It was exclusive of separately billable procedures and treating other patients and teaching time. Please see Assessment and Plan section and the rest of the note for further information on patient assessment and treatment This dictation may have been done utilizing a voice recognition system. Attempts have been made to correct errors. However, there may be uncorrected grammatical, spelling, and recognitions errors present. [employer] Consult Note Consult date: 02/08/24 Reason for consult: Diabetic ketoacidosis, chest pain, elevated troponins, T-wave changes on EKG HPI: Leeann Sotelo is a 38 year old female with past medical history of insulin- dependent diabetes type 1, hypercholesterolemia presented to the ED on 02/07/2024 with complains of elevated blood sugars, nausea, vomiting, abdominal pain, chest pain, myalgia after she ran out of insulin pump for 1-2 days. Patient was tachycardic and tachypneic on arrival in the ER, initial blood sugars were greater than 500, once her workup was done and showed blood sugars of 533, anion gap of 17, by, 15, elevated beta hydroxybutyrate UA showed 3+ ketones and positive blood glucose. She had leukocytosis with a WBC count of 17.7. Chest x-ray was clear, CT scan of the abdomen and pelvis showed wall thickening of the colon involving the hepatic legs and transfers colon, consistent with colitis, uterine fibroids. Patient started on Zosyn. Also started on insulin infusion after tuning his IV fluids were given and transferred to the ICU for further management. Patient seen examined this morning in the ICU, is awake, alert, oriented, denies any nausea vomiting, abdominal pain, chest pain at this time. Complains of pain in her mouth. Patient is hemodynamically stable, tachycardia resolved. Adequate urine output, afebrile. Review of Systems 2 Review of Systems: All systems reviewed & are unremarkable except as noted in HPI and below PMFSH Past Medical History Medical History Hypercholesterolemia Diabetes mellitus Family History Family History Mother Depression Father Diabetes mellitus Hypertension Social History Social History Smoking status: Former smoker Alcohol intake: current Drinks per week: 1 Substance use: never Do You Feel Safe in your Home?: Yes Lack of Transportation: No Lack of Food: Never True Current Housing: I Have Housing Concerned About Future Housing: No Difficulty Paying Gas/Electric Bills: No Difficulty Paying for Meds: No Currently Unemployed: No Education: Associate Degree Difficulty w/ Childcare or Family Care: No Spiritual care concerns: No Meds Home Medications and Allergies Home Medications ?Medication ?Instructions ?Recorded ?Confirmed ?Type atorvastatin 20 mg tablet 20 mg PO DAILY #30 tabs 10/13/20 02/08/24 Rx lancets 30 gauge (OneTouch Delica #1 g 10/13/20 02/08/24 Rx Plus Lancet) pen needle, diabetic 32 gauge x #1 g 10/13/20 02/08/24 Rx 5/32 (BD Ultra-Fine Julia Pen Needle) blood-glucose sensor (Dexcom G7 #9 ea 01/24/24 02/08/24 Rx Sensor device) glucose 4 gram chewable tablet 16 g (4 x 4 gram) PO Q15M PRN 01/24/24 02/08/24 Rx (Dex4 Glucose) hypoglycemia #60 tabs insulin glargine 100 unit/mL (3 20 unit (0.2 mL) subcut QAM PRN 01/24/24 02/08/24 Rx mL) subcutaneous pen (Lantus insulin pump malfunction #15 mL Solostar U-100 Insulin) insulin lispro 100 unit/mL 28 unit subcut DAILY 01/24/24 02/08/24 History subcutaneous solution insulin pump cart,auto,BT,G6/7 #45 ea 01/24/24 02/08/24 Rx (Omnipod 5 G6-G7 Pods (Gen 5) subcutaneous cartridge) insulin pump cartridge,auto #1 ea 01/24/24 02/08/24 Rx dose,BT,G6/G7 with controller subcutaneous (Omnipod 5 G6-G7 Intro Kit(Gen 5) subcutaneous cartridge and controller) losartan 50 mg tablet 50 mg PO DAILY 01/24/24 02/08/24 History semaglutide 1 mg/dose (4 mg/3 mL) 1 mg (0.75 mL) subcut WEEKLY 90 01/24/24 02/08/24 Rx subcutaneous pen injector (Ozempic) days #9 mL glucagon 1 mg/0.2 mL subcutaneous 1 mg subcut ONCE PRN low blood 02/08/24 02/08/24 History auto-injector (Gvoke HypoPen sugar 2-Pack) Allergies Allergy/AdvReac Type Severity Reaction Status Date / Time No Known Allergies Allergy Verified 01/24/24 13:09 Vital Signs Vital Signs - 24 hr 02/07/24 20:16 02/07/24 20:37 02/07/24 22:22 Temperature 97.8 F 98.5 F Pulse Rate 97 108 H Respiratory Rate 18 26 H Blood Pressure 105/38 L 112/30 L 119/50 L Pulse Oximetry 100 100 Oxygen Delivery Room Air 02/08/24 01:01 02/08/24 03:23 02/08/24 05:07 Temperature Pulse Rate 108 H 103 H 103 H Respiratory Rate 15 15 15 Blood Pressure 126/58 L 134/58 L Pulse Oximetry 100 100 100 Oxygen Delivery Room Air 02/08/24 06:00 02/08/24 06:00 02/08/24 08:00 Temperature 98.3 F 98.4 F Pulse Rate 99 99 98 Respiratory Rate 20 20 Blood Pressure 94/70 L 125/61 Pulse Oximetry 100 100 Oxygen Delivery 02/08/24 08:00 02/08/24 08:00 02/08/24 10:00 Temperature Pulse Rate 98 99 99 Respiratory Rate 20 20 Blood Pressure 114/43 L Pulse Oximetry 100 99 Oxygen Delivery Room Air 02/08/24 10:00 Temperature Pulse Rate 99 Respiratory Rate Blood Pressure Pulse Oximetry Oxygen Delivery Exam 2 Narrative: General: Pleasant female in no acute distress HEENT:? Pupils equal and reactive, sclera is clear, moist oral mucosa, no abnormalities seen and amount except for a few fillings and cavities Neck:? Supple Respiratory:? Clear to auscultation bilaterally, no wheezing, adequate air Cardiac:? S1-S2 normal, regular rate control Abdomen:? Soft, nontender, nondistended, normoactive bowel sounds Extremities:? No edema, palpable pedal pulses Neuro:? Patient awake, alert, oriented, nonfocal, answers to questions appropriately and follows simple commands Skin:? No lesions noted, warm and dry Psych:? Normal mentation and affect Results Labs 02/07/24 22:40 02/08/24 09:40 Labs: Short CBC 02/07/24 Range/Units 22:40 WBC 17.7 H (4.5-10.0) K/mm3 Hgb 12.3 (12.0-15.0) g/dL Hct 37.9 (37.0-47.0) % Plt Count 282 (150-375) k/mm3 BMP 02/07/24 02/08/24 02/08/24 22:40 00:59 06:05 Sodium 136 L 138 136 L Potassium 4.3 4.0 3.3 L Chloride 104 108 H 112 H Carbon Dioxide 15 L 14 L 18 L BUN 19 H 19 H 16 Creatinine 0.80 0.90 0.80 Glucose 533 H* 411 H 165 H Calcium 9.0 8.6 8.3 L 02/08/24 09:40 Sodium 136 L Potassium 4.4 Chloride 111 H Carbon Dioxide 24 BUN 16 Creatinine 0.70 Glucose 232 H Calcium 8.2 L Cardiac Enzymes 02/07/24 02/08/24 02/08/24 Range/Units 22:40 00:59 06:05 Troponin I 0.023 0.023 0.068 H* D (0.000-0.034) ng/mL 02/08/24 Range/Units 09:40 Troponin I 0.099 H* D (0.000-0.034) ng/mL Liver Function 02/07/24 Range/Units 22:40 Total Bilirubin 1.1 (0.2-1.3) mg/dL AST 32 (14-36) U/L ALT 21 (6-35) U/L Alkaline Phosphatase 90 (38-126) U/L Albumin 4.3 (3.5-5.1) g/dL Urine 02/07/24 Range/Units 22:42 Urine Color Yellow (Yellow) Urine Appearance Clear (Clear) Urine pH 5.0 (5.0-9.0) Ur Specific [place] 1.025 (1.001-1.035) Urine Protein Negative (Negative) mg/dL Urine Glucose (UA) 3+ H (Negative) mg/dL Quality VTE Prophylaxis VTE prophylaxis: pharmacologic ordered Hospitalist MIPS Advance Care Plan I have confirmed that the patient's Advanced Care Plan is present, code status is documented, or surrogate decision maker is listed in patient medical record.: Yes Medication Reconciliation I have utilized all available resources to obtain, update and review the patients current medications (includes all prescriptions, OTC, herbals, cannabis, and nutritional supplements).: Yes
[2024-02-08] MEDS: INSULIN ASPART (*BKC) 100 UNITS/ML SUB-Q ×3 (11:21→16:34)
[2024-02-08 11:33] LABS: Glucose Point of Care 272 mg/dl (65-105)
[2024-02-08] MEDS: ENOXAPARIN 80 MG/0.8 ML SYRINGE SUB-Q (13:17)
[2024-02-08 16:08] LABS: Glucose Point of Care 153 mg/dl (65-105)
--- NOTE | 2024-02-08 16:42 | P.CONCA_ITS ---
Assessment and Plan Assessment and plan (1) Elevated troponin: Code(s): R79.89 - Other specified abnormal findings of blood chemistry Status: Acute Plan This 38-year-old woman with type 1 diabetes-and hyperlipidemia presented with nausea and vomiting does followed by chest discomfort Chest discomfort -based on the clinical description, may be secondary to nausea and vomiting -she does have mild troponin elevation which should be trended to peak -her chest discomfort has resolved and her echocardiogram shows normal biventricular systolic function -that her troponins trend downward and she is chest pain-free, then she can follow up outpatient and have outpatient cardiac CTA History of Present Illness History of Present Illness Consult date/time: 02/08/24 16:42 Requesting physician: Radu Marcum MD Consult reason: chest pain Reason For Visit: DKA, colitis Narrative: This 38-year-old woman with type 1 diabetes-and hyperlipidemia presented with nausea and vomiting does followed by chest discomfort. Her chest pain lasted for several hours and is sharp in nature. The chest pain did initially after her vomiting episodes. Previously during the warmer months, she was able to walk 4 miles with her dogs without any significant chest discomfort or shortness of breath. She denies orthopnea, lower extremity swelling, and syncopal episodes. As the weather has been getting colder, she has been feeling more depressed and has not been doing as much physical activity as she normally would do. Review of Systems 2 Cardiovascular: Cardiovascular: Reports as per HPI Respiratory: Respiratory: Reports as per HPI [facility] Past Medical History Medical History Hypercholesterolemia Diabetes mellitus Family History Family History Mother Depression Father Diabetes mellitus Hypertension Social History Social History Smoking status: Former smoker Alcohol intake: current Drinks per week: 1 Substance use: never Do You Feel Safe in your Home?: Yes Lack of Transportation: No Lack of Food: Never True Current Housing: I Have Housing Concerned About Future Housing: No Difficulty Paying Gas/Electric Bills: No Difficulty Paying for Meds: No Currently Unemployed: No Education: Associate Degree Difficulty w/ Childcare or Family Care: No Spiritual care concerns: No Meds Home Medications and Allergies Home Medications ?Medication ?Instructions ?Recorded ?Confirmed ?Type atorvastatin 20 mg tablet 20 mg PO DAILY #30 tabs 10/13/20 02/08/24 Rx lancets 30 gauge (OneTouch Delica #1 pkg 10/13/20 02/08/24 Rx Plus Lancet) pen needle, diabetic 32 gauge x #1 pkg 10/13/20 02/08/24 Rx 5/32 (BD Ultra-Fine Julia Pen Needle) blood-glucose sensor (Dexcom G7 #9 ea 01/24/24 02/08/24 Rx Sensor device) glucose 4 gram chewable tablet 16 g (4 x 4 gram) PO Q15M PRN 01/24/24 02/08/24 Rx (Dex4 Glucose) hypoglycemia #60 tabs insulin glargine 100 unit/mL (3 20 unit (0.2 mL) subcut QAM PRN 01/24/24 02/08/24 Rx mL) subcutaneous pen (Lantus insulin pump malfunction #15 mL Solostar U-100 Insulin) insulin lispro 100 unit/mL 28 unit subcut DAILY 01/24/24 02/08/24 History subcutaneous solution insulin pump cart,auto,BT,G6/7 #45 ea 01/24/24 02/08/24 Rx (Omnipod 5 G6-G7 Pods (Gen 5) subcutaneous cartridge) insulin pump cartridge,auto #1 ea 01/24/24 02/08/24 Rx dose,BT,G6/G7 with controller subcutaneous (Omnipod 5 G6-G7 Intro Kit(Gen 5) subcutaneous cartridge and controller) losartan 50 mg tablet 50 mg PO DAILY 01/24/24 02/08/24 History semaglutide 1 mg/dose (4 mg/3 mL) 1 mg (0.75 mL) subcut WEEKLY 90 01/24/24 02/08/24 Rx subcutaneous pen injector (Ozempic) days #9 mL glucagon 1 mg/0.2 mL subcutaneous 1 mg subcut ONCE PRN low blood 02/08/24 02/08/24 History auto-injector (Gvoke HypoPen sugar 2-Pack) Allergies Allergy/AdvReac Type Severity Reaction Status Date / Time No Known Allergies Allergy Verified 01/24/24 13:09 Vital Signs Vital Signs - 24 hr 02/07/24 20:16 02/07/24 20:37 02/07/24 22:22 Temperature 36.6 C 36.9 C Pulse Rate 97 108 H Respiratory Rate 18 26 H Blood Pressure 105/38 L 112/30 L 119/50 L Pulse Oximetry 100 100 Oxygen Delivery Room Air 02/08/24 01:01 02/08/24 03:23 02/08/24 05:07 Temperature Pulse Rate 108 H 103 H 103 H Respiratory Rate 15 15 15 Blood Pressure 126/58 L 134/58 L Pulse Oximetry 100 100 100 Oxygen Delivery Room Air 02/08/24 06:00 02/08/24 06:00 02/08/24 08:00 Temperature 36.8 C 36.9 C Pulse Rate 99 99 98 Respiratory Rate 20 20 Blood Pressure 94/70 L 125/61 Pulse Oximetry 100 100 Oxygen Delivery 02/08/24 08:00 02/08/24 08:00 02/08/24 10:00 Temperature Pulse Rate 98 99 99 Respiratory Rate 20 20 Blood Pressure 114/43 L Pulse Oximetry 100 99 Oxygen Delivery Room Air 02/08/24 10:00 02/08/24 12:00 02/08/24 12:00 Temperature 37.0 C Pulse Rate 99 109 H 99 Respiratory Rate 20 Blood Pressure 135/60 Pulse Oximetry 99 Oxygen Delivery 02/08/24 16:00 Temperature 36.8 C Pulse Rate 92 Respiratory Rate 21 H Blood Pressure 101/48 L Pulse Oximetry 100 Oxygen Delivery Exam 2 Const: General: comfortable Eyes: EOM: EOMs intact bilaterally Neck: Neck: no JVD Resp: Effort & Inspection: normal respiratory effort Auscultation: clear to auscultation bilaterally Cardio: Rate: regular rate Rhythm: regular rhythm GI: GI Palp: Yes Soft to palpation Neuro: Speech: normal speech Extrem: General: no pedal edema Results Labs and Meds 02/07/24 22:40 02/08/24 09:40 Lab results: Cardiac Enzymes 02/07/24 02/08/24 02/08/24 Range/Units 22:40 00:59 06:05 AST 32 (14-36) U/L Troponin I 0.023 0.023 0.068 H* D (0.000-0.034) ng/mL 02/08/24 Range/Units 09:40 AST (14-36) U/L Troponin I 0.099 H* D (0.000-0.034) ng/mL Coagulation 02/07/24 Range/Units 22:40 PT 14.7 (11.1-14.7) Seconds APTT 22.6 (22.3-36.8) Seconds CBC 02/07/24 Range/Units 22:40 WBC 17.7 H (4.5-10.0) K/mm3 RBC 4.14 L (4.2-5.4) M/mm3 Hgb 12.3 (12.0-15.0) g/dL Hct 37.9 (37.0-47.0) % Plt Count 282 (150-375) k/mm3 Lymph # (Auto) 0.91 (0.9-3.2) K/mm3 [place] # (Auto) 1.0 H (0.1-0.6) K/mm3 Eos # (Auto) 0.0 (0-0.3) K/mm3 Baso # (Auto) 0.0 (0.0-0.1) K/mm3 Comprehensive Metabolic Panel 02/07/24 02/08/24 02/08/24 Range/Units 22:40 00:59 06:05 Sodium 136 L 138 136 L (137-145) mmol/L Potassium 4.3 4.0 3.3 L (3.4-5.0) mmol/L Chloride 104 108 H 112 H (98-107) mmol/L Carbon Dioxide 15 L 14 L 18 L (22-30) mmol/L BUN 19 H 19 H 16 (7-17) mg/dL Creatinine 0.80 0.90 0.80 (0.7-1.0) mg/dL Glucose 533 H* 411 H 165 H (65-110) mg/dL Calcium 9.0 8.6 8.3 L (8.4-10.2) mg/dL AST 32 (14-36) U/L ALT 21 (6-35) U/L Alkaline Phosphatase 90 (38-126) U/L Total Protein 7.0 (6.3-8.2) g/dL Albumin 4.3 (3.5-5.1) g/dL 02/08/24 Range/Units 09:40 Sodium 136 L (137-145) mmol/L Potassium 4.4 (3.4-5.0) mmol/L Chloride 111 H (98-107) mmol/L Carbon Dioxide 24 (22-30) mmol/L BUN 16 (7-17) mg/dL Creatinine 0.70 (0.7-1.0) mg/dL Glucose 232 H (65-110) mg/dL Calcium 8.2 L (8.4-10.2) mg/dL AST (14-36) U/L ALT (6-35) U/L Alkaline Phosphatase (38-126) U/L Total Protein (6.3-8.2) g/dL Albumin (3.5-5.1) g/dL Intake and Output 02/08/24 02/08/24 02/08/24 07:59 15:59 23:59 Intake Total 2199.3 1712.2 550 Output Total 300 Balance 1899.3 1712.2 550 Intake: IV 2099.3 1712.2 Insulin Human Regular (*Bkc) 49.3 12.2 100 units In Sodium Chloride 0. 9% IV 99 ml @ 1 UNITS/HR 1 mls/ hr IV CONT .Q24H STACI Rx#: [id number] KCl 20 Meq/D5/0.45% Sod Chl 1, 650 000 ml @ 150 mls/hr IV CONT . Q6H40M STACI Rx#:[id number] Lactated Ringers 1,000 ml @ 999 1000 mls/hr IV CONT .Q1H1M STA Rx#: [id number] Sodium Chloride 0.9% IV 1,000 2000 ml @ 999 mls/hr IV CONT .Q1H1M STA Rx#:[id number] Piperacilln/Ulices 3.375GM/Ns50ml 50 50 3.375 gm In 50 ml @ 100 mls/hr IVPB Q6HR STACI Rx#:[id number] Oral 100 0 550 Output: Urine 300 Other: # Unmeasured Voids 1 Patient Weight 02/08/24 23:59 Weight 82.5 kg
[2024-02-08 20:52] LABS: Glucose Point of Care 140 mg/dl (65-105)
--- NOTE | 2024-02-08 23:57 | PC.NURSE ---
Provided report to Gerald CHANDRA for patient to go to [phone].
[2024-02-09] VITALS: BP 122/65; PULSE 83; RESP 22; TEMP 37; O2SAT 100
--- NOTE | 2024-02-09 00:47 | PC.NURSE ---
Transferred patient to [facility] at 0015 with belongings.
[2024-02-09] MEDS: PIPERACILLN/TAZ 3.375GM/NS50ML 3.375 GM/50 ML BAG IVPB ×2 (03:25→09:30)
[2024-02-09 04:00] VITALS: PULSE 79
[2024-02-09 05:49] LABS: Basophils Percent Auto 0.3 % (0.2-1.2); Eosinophils Percent Auto 0.2 % (0-4.4); Hematocrit 30.7 % (37.0-47.0); Immature Granulocyte Absolute 0.02 K/mm3 (0.00-0.031); Immature Granulocyte Percent A 0.2 % (0-0.5); Lymphocytes Absolute Auto 3.52 K/mm3 (0.9-3.2); Lymphocytes Percent Auto 34.4 % (18.3-44.2); Mean Corpuscular HGB Conc 32.6 g/dl (32-36); Mean Corpuscular Hemoglobin 29.5 pg (26-34); Mean Corpuscular Volume 90.6 fl (80-100); Mean Platelet Volume 10.2 fl (7.4-10.4); Monocytes Absolute Auto 0.5 K/mm3 (0.1-0.6); Monocytes Percent Auto 4.4 % (2.6-8.5); Neutrophils Absolute Auto 6.2 K/mm3 (1.3-6.7); Neutrophils Percent Auto 60.5 % (45.5-73.1); Platelet Count Result 207 k/mm3 (150-375); Red Blood Count 3.39 M/mm3 (4.2-5.4); Red Cell Distribution Width 13.1 % (11.5-14.5); White Blood Count 10.2 K/mm3 (4.5-10.0)
[2024-02-09 05:56] VITALS: BP 118/64; PULSE 76; RESP 20; TEMP 36.9; O2SAT 100
[2024-02-09 06:00] LABS: Alanine Aminotransferase 15 U/L (6-35); Alkaline Phosphatase 54 U/L (38-126); Anion Gap -1 mmol/L (4-12); Aspartate Amino Transferase 25 U/L (14-36); Bilirubin,Total 0.3 mg/dL (0.2-1.3); Blood Urea Nitrogen 11 mg/dL (7-17); Calcium 8.1 mg/dL (8.4-10.2); Carbon Dioxide 27 mmol/L (22-30); Chloride 111 mmol/L (98-107); Estimated CRCL calculation 118 ml/min; Estimated Glomerular Filt Rate > 60; Glucose 118 mg/dL (65-110); Potassium 3.5 mmol/L (3.4-5.0); Sodium 137 mmol/L (137-145)
[2024-02-09 06:15] LABS: Troponin I 0.094 ng/mL (0.000-0.034)
[2024-02-09 08:00] VITALS: PULSE 90
--- NOTE | 2024-02-09 09:20 | P.PNCA_ITS ---
Progress Note: A&P Assessment and Plan (1) Elevated troponin: Code(s): R79.89 - Other specified abnormal findings of blood chemistry Status: Acute Assessment and Plan: Uncertain etiology. EKG is not high risk. Troponins are down trending after peak of 0.09. Echocardiogram unremarkable. Recommendation is as previously outlined by Dr. Ortiz which is to follow-up with him for outpatient ischemic evaluation. If DC home today, p.r.n. nitro, low-dose aspirin if hemoglobin remains stable, statin and follow-up (2) Anemia: Code(s): D64.9 - Anemia, unspecified Status: Acute Assessment and Plan: Hemoglobin has dropped significantly. This should be trended to ensure stability before discharge. If it remains stable, would recommend low-dose aspirin 81 mg p.o. daily (3) DKA (diabetic ketoacidosis): Qualifiers: Diabetes mellitus complication detail: without coma Diabetes mellitus type: type 1 Qualified Code(s): E10.10 - Type 1 diabetes mellitus with ketoacidosis without coma Code(s): E11.10 - Type 2 diabetes mellitus with ketoacidosis without coma Status: Acute Assessment and Plan: Per hospitalist (4) Hypertension associated with type 1 diabetes mellitus: Code(s): E10.59 - Type 1 diabetes mellitus with other circulatory complications; I15.2 - Hypertension secondary to endocrine disorders Status: Acute Assessment and Plan: At goal. Continue losartan Subjective Date/time seen: 02/09/24 09:20 Interval history: 38-year-old admitted for nausea vomiting, elevated glucose, chest pain Date of service 02/09/2024: Feeling better today. No chest pain or shortness of breath. No nausea vomiting. Troponins peaked are now down trending. Review of Systems Cardiovascular: Cardiovascular: Denies chest pain Respiratory: Respiratory: Denies dyspnea Exam Const: General: comfortable Eyes: EOM: EOMs intact bilaterally Neck: Neck: no JVD Resp: Effort & Inspection: normal respiratory effort Auscultation: clear to auscultation bilaterally Cardio: Rate: regular rate Rhythm: regular rhythm Neuro: Speech: normal speech Extrem: General: no pedal edema Objective Data Vital Signs Vital Signs: Vital Signs - 24 hr 02/08/24 10:00 02/08/24 10:00 02/08/24 12:00 Temperature 37.0 C Pulse Rate 99 99 109 H Respiratory Rate 20 20 Blood Pressure 114/43 L 135/60 Pulse Oximetry 99 99 02/08/24 12:00 02/08/24 16:00 02/08/24 16:00 Temperature 36.8 C Pulse Rate 99 92 94 Respiratory Rate 21 H Blood Pressure 101/48 L Pulse Oximetry 100 02/08/24 20:00 02/08/24 20:55 02/09/24 00:00 Temperature 36.6 C 37.0 C Pulse Rate 94 98 83 Respiratory Rate 18 22 H Blood Pressure 125/71 122/65 Pulse Oximetry 98 100 02/09/24 00:00 02/09/24 04:00 02/09/24 05:56 Temperature 36.9 C Pulse Rate 83 79 76 Respiratory Rate 20 Blood Pressure 118/64 Pulse Oximetry 100 Intake/Output Intake/Output: Intake & Output 02/06/24 02/07/24 02/08/24 02/09/24 23:59 23:59 23:59 23:59 Intake Total 4751.5 0 Output Total 300 Balance 4451.5 0 Meds/Results Medications: Active Medications Generic Name Dose Route Start Last Admin Trade Name Freq PRN Reason Stop Dose Admin Acetaminophen 650 mg 02/08/24 03:17 Acetaminophen 325 Mg Tablet PO Q4H PRN Mild Pain (1-3) or Fever Atorvastatin Calcium 20 mg 02/09/24 09:00 Atorvastatin 20 Mg Tablet PO DAILY STACI Dextrose 12.5 gm 02/08/24 08:10 Dextrose 50% 25 Gm/50 Ml Syringe IV PUSH PRN PRN Hypoglycemia Protocol Glucagon 1 mg 02/08/24 08:10 Glucagon For Inj 1 Mg Vial IM PRN PRN Hypoglycemia Protocol Glucose 15 gm 02/08/24 08:10 Glucose Oral Gel 15 Gm Of Glucse In 37.5 Gm Tube PO PRN PRN Hypoglycemia Protocol Dextrose 1,000 mls @ 100 mls/hr 02/08/24 08:10 Dextrose 5% 1,000 Ml IVPB PRN PRN Hypoglycemia Protocol Piperacillin/Tazobactam/Dextrose 3.375 gm in 50 mls @ 100 mls/hr 02/09/24 03:00 02/09/24 03:25 Zosyn 3.375 Gm/Ns 50 Ml IVPB 100 mls/hr Q6HR STACI Administration Losartan Potassium 50 mg 02/09/24 09:00 Losartan Potassium 50 Mg Tablet PO DAILY STACI Perflutren Lipid Microsphere 0 ml 02/08/24 11:41 Perflutren Lipid Microspheres 1.5 Ml Vial Diluted To 10 Ml Total Volume IV PUSH 02/11/24 11:41 ONCE PRN adequate visualization Protocol Phenol 1 spray 02/08/24 05:29 Phenol/Sod Pheno [place] Morales (*Bkc) MUCOUS MEM PRN PRN Sore Throat Radiology Results: ITS Impressions Chest X-Ray 02/07/24 21:09 IMPRESSION: No acute cardiopulmonary process. Abdomen/Pelvis CT 02/08/24 06:25 IMPRESSION: 1. Wall thickening of colon involving the hepatic flexure and transverse colon, consistent with colitis. 2. Uterine fibroids. Labs Labs: Laboratory Results - last 24 hr 02/08/24 02/08/24 02/08/24 09:40 11:21 15:59 WBC RBC Hgb Hct MCV MCH MCHC RDW Plt Count MPV Immature Gran % (Auto) Neut % (Auto) Lymph % (Auto) [place] % (Auto) Eos % (Auto) Baso % (Auto) Lymph # (Auto) [place] # (Auto) Eos # (Auto) Baso # (Auto) Abs Immat Gran (auto) Absolute Neuts (auto) Absolute Nucleated RBC Nucleated RBC % Sodium 136 L Potassium 4.4 Chloride 111 H Carbon Dioxide 24 Anion Gap 1 L BUN 16 Creatinine 0.70 Estim Creat Clear Calc 100 Estimated GFR > 60 Glucose 232 H POC Capillary Glucose 272 H 153 H Calcium 8.2 L Magnesium Total Bilirubin AST ALT Alkaline Phosphatase Troponin I 0.099 H* D Total Protein Albumin 02/08/24 02/09/24 20:46 05:36 WBC 10.2 H RBC 3.39 L Hgb 10.0 L Hct 30.7 L MCV 90.6 MCH 29.5 MCHC 32.6 RDW 13.1 Plt Count 207 MPV 10.2 Immature Gran % (Auto) 0.2 Neut % (Auto) 60.5 Lymph % (Auto) 34.4 [place] % (Auto) 4.4 Eos % (Auto) 0.2 Baso % (Auto) 0.3 Lymph # (Auto) 3.52 H [place] # (Auto) 0.5 Eos # (Auto) 0.0 Baso # (Auto) 0.0 Abs Immat Gran (auto) 0.02 Absolute Neuts (auto) 6.2 Absolute Nucleated RBC 0.000 Nucleated RBC % 0.0 Sodium 137 Potassium 3.5 Chloride 111 H Carbon Dioxide 27 Anion Gap -1 L BUN 11 D Creatinine 0.60 L Estim Creat Clear Calc 118 Estimated GFR > 60 Glucose 118 H POC Capillary Glucose 140 H Calcium 8.1 L Magnesium 2.0 Total Bilirubin 0.3 AST 25 ALT 15 Alkaline Phosphatase 54 Troponin I 0.094 H* Total Protein 5.0 L Albumin 3.0 L
[2024-02-09] MEDS: LOSARTAN POTASSIUM 50 MG TABLET PO (09:30)
[2024-02-09] MEDS: ATORVASTATIN 20 MG TABLET PO (09:30)
[2024-02-09 10:11] LABS: Glucose Point of Care 71 mg/dl (65-105)
[2024-02-09] MEDS: ACETAMINOPHEN 325 MG TABLET 650 MG PO (11:00)
[2024-02-09 12:03] LABS: Glucose Point of Care 77 mg/dl (65-105)
[2024-02-09 13:33] LABS: Hematocrit 31.4 % (37.0-47.0); Hemoglobin 10.1 g/dL (12.0-15.0)
[2024-02-09 14:00] VITALS: BP 120/60; PULSE 92; RESP 18; TEMP 36.7; O2SAT 94
--- NOTE | 2024-02-09 14:28 | PM.DS ---
DS: Admitting Diagnosis Discharge Date 02/09/2024 Admitting Diagnosis hyperglycemia/nausea, vomiting DS: Discharge Diagnosis Discharge Diagnosis (1) Elevated troponin: Code(s): R79.89 - Other specified abnormal findings of blood chemistry Status: Acute (2) Colitis: Code(s): K52.9 - Noninfective gastroenteritis and colitis, unspecified Status: Acute (3) Lactic acidosis: Code(s): E87.20 - Acidosis, unspecified Status: Acute (4) DKA (diabetic ketoacidosis): Qualifiers: Diabetes mellitus complication detail: without coma Diabetes mellitus type: type 1 Qualified Code(s): E10.10 - Type 1 diabetes mellitus with ketoacidosis without coma Code(s): E11.10 - Type 2 diabetes mellitus with ketoacidosis without coma Status: Acute DS: Summary Hospital Course Hospital Course: Patient presented to ED with multiple complaints, elevated blood sugar, ran out of her insulin pump since yesterday, reporting myalgias, nausea vomiting diarrhea, abdominal pain. Patient tachycardic and tachypneic upon arrival. Blood pressure stable. Afebrile here. Initial blood sugar greater than 500. DKA workup initiated. Laboratory studies are consistent with DKA. Blood sugar on CMP 533. Anion gap of 17. Bicarb 15. Beta hydroxybutyrate is elevated to 3.95. ABG with pH 7.287. PCO2 24.6. 3+ ketones on urine sample. No signs of infection there. Initial lactic acid is elevated to 3.6. Meds are ongoing. Viral swabs are negative. CBC does show leukocytosis of 17.7, neutrophil predominance. No bandemia. Chest x-ray is clear. CT scan of abdomen/pelvis With findings of colitis. Patient given 2 L of fluid in the ED. Insulin drip started for DKA. Repeat blood sugar approximately 1 hour later down to 411. Patient is feeling improved. she has been transitioned from drip and transitioned to lantus. she brought her omnipod and was transitioned to omnipod while in the hosptal DKA resolved. she will continue to follow up with endocrinology as previously scheduled. Elevated troponin cardiology has been consulted. troponin trended upto peak 0.099. recommends op ischemic evaluation. place on aspirin Leukocytosis follow blood culture started on Zosyn, which will be switched to augmentin at discharge. anemia: mild. no signs of bleeding. likley due to fluid rescucitation. repeat stable. Hyperlipidemia DVT prophylaxis Lovenox Code status full code Time Spent with Patient Time attestation: Total time spent providing and/or coordinating discharge services:45 mins Exam Narrative: GENERAL: well-nourished, non-toxic, In no acute distress HEAD: Normocephalic, atraumatic. RESPIRATORY: Airway patent, respirations nonlabored. Clear to auscultation bilaterally, no rales, rhonchi, wheezing. CARDIOVASCULAR: regular rate with regular rhythm without murmurs, rubs, or gallops. ABDOMINAL: Soft, nontender No significant focal tenderness. Nondistended. Normoactive BS. MUSCULOSKELETAL: Moves all extremities. No gross deformities. No peripheral edema. SKIN: Warm, dry, normal color. NEURO: A&O X3. Speech clear. No ataxic movements. PSYCHIATRIC: Appropriate mood and affect. Normal interaction. DS: Data Data Completed and Pending Completed studies during hospitalization: Exam Type: CA echo doppler color flow Study Info Complete two-dimensional, color flow and Doppler transthoracic echocardiogram is performed. Summary 1. Complete two-dimensional, color flow and Doppler transthoracic echocardiogram is performed. 2. There is normal biventricular systolic function. 3. There is no significant valvular disease. 4. Normal inferior vena cava with <50% collapse upon inspiration consistent with elevated right atrial pressure, 8 mmHg. Left Ventricle The left ventricle is normal in size and systolic function. The left ventricular ejection fraction is visually estimated to be 60-65%. Right Ventricle The right ventricle is normal in size and systolic function. Left Atria The left atrium is normal size. Right Atria The right atrium is normal size. Atrial Septum The atrial septum is not well visualized. Aortic Valve The aortic valve is trileaflet and opens well. There is no significant aortic regurgitation. Pulmonic Valve The pulmonic valve is grossly normal. There is no significant pulmonic valve regurgitation by color doppler. Mitral Valve The mitral valve is normal. There is trace mitral regurgitation. Tricuspid Valve The tricuspid valve is normal. There is trace tricuspid regurgitation. Pericardium/Pleural Pericardium is normal in appearance with no evidence for significant pericardial effusion. Inferior Vena Cava Normal inferior vena cava with <50% collapse upon inspiration consistent with elevated right atrial pressure, 8 mmHg. Aorta The aortic root at the level of the sinus of Valsalva measures 2.4 cm in diameter. Labs on day of discharge: Labs from last 24 hours 02/09/24 02/09/24 02/09/24 13:25 12:00 10:07 WBC RBC Hgb 10.1 L Hct 31.4 L MCV MCH MCHC RDW Plt Count MPV Immature Gran % (Auto) Neut % (Auto) Lymph % (Auto) [place] % (Auto) Eos % (Auto) Baso % (Auto) Lymph # (Auto) [place] # (Auto) Eos # (Auto) Baso # (Auto) Abs Immat Gran (auto) Absolute Neuts (auto) Absolute Nucleated RBC Nucleated RBC % Sodium Potassium Chloride Carbon Dioxide Anion Gap BUN Creatinine Estim Creat Clear Calc Estimated GFR Glucose POC Capillary Glucose 77 71 Calcium Magnesium Total Bilirubin AST ALT Alkaline Phosphatase Troponin I Total Protein Albumin 02/09/24 02/08/24 02/08/24 05:36 20:46 15:59 WBC 10.2 H RBC 3.39 L Hgb 10.0 L Hct 30.7 L MCV 90.6 MCH 29.5 MCHC 32.6 RDW 13.1 Plt Count 207 MPV 10.2 Immature Gran % (Auto) 0.2 Neut % (Auto) 60.5 Lymph % (Auto) 34.4 [place] % (Auto) 4.4 Eos % (Auto) 0.2 Baso % (Auto) 0.3 Lymph # (Auto) 3.52 H [place] # (Auto) 0.5 Eos # (Auto) 0.0 Baso # (Auto) 0.0 Abs Immat Gran (auto) 0.02 Absolute Neuts (auto) 6.2 Absolute Nucleated RBC 0.000 Nucleated RBC % 0.0 Sodium 137 Potassium 3.5 Chloride 111 H Carbon Dioxide 27 Anion Gap -1 L BUN 11 D Creatinine 0.60 L Estim Creat Clear Calc 118 Estimated GFR > 60 Glucose 118 H POC Capillary Glucose 140 H 153 H Calcium 8.1 L Magnesium 2.0 Total Bilirubin 0.3 AST 25 ALT 15 Alkaline Phosphatase 54 Troponin I 0.094 H* Total Protein 5.0 L Albumin 3.0 L Preliminary micro results at discharge 02/08/24 03:38 Blood Culture - Preliminary Blood 02/08/24 03:38 Blood Culture - Preliminary Blood Imaging Radiologist's impression: ITS Impressions Chest X-Ray 12/26/24 21:09 IMPRESSION: No acute cardiopulmonary process. Abdomen/Pelvis CT 02/08/24 06:25 IMPRESSION: 1. Wall thickening of colon involving the hepatic flexure and transverse colon, consistent with colitis. 2. Uterine fibroids. Discharge Plan Discharge Attending physician on discharge: Jeffery Kelsey Consulting providers: Radu Marcum; Bnei Ortiz Discharging Clinician: Jeffery Kelsey Anticipated Discharge Date/Time: 02/09/24 14:37 Patient Disposition: Home, Self-Care Activity: as tolerated Diet: diabetic Discharge Instructions: DKA Patient Instructions: Antibiotic Form, Pain Management (GEN), Diabetes Insipidus (DC), Diabetic Ketoacidosis (DC), Basic Carbohydrate Counting (DC), Meal Planning with the Plate Method (DC), Meal Planning with Diabetes Exchanges (DC), Managing Diabetes During Sick Days (DC), Diabetes and Nutrition (DC), Diabetes and Exercise (DC), Diabetes Type 1: Management (DC) Patient Language: French Stand Alone Forms: General Discharge Information Follow-up/Referrals: Beni Ortiz MD [Physician] - 4 Weeks PHYSICIAN NOT ON STAFF,NONSTAFF [Primary Care Provider] - 1 Week Discharge Medications: New amoxicillin-pot clavulanate 875-125 mg tablet 1 tablet PO Q12H Qty: 10 0RF aspirin 81 mg tablet,delayed release (DR/EC) 81 mg PO DAILY Qty: 30 0RF Continued insulin lispro 100 unit/mL solution 28 unit subcut DAILY Rx Instructions: plus sliding scale losartan 50 mg tablet 50 mg PO DAILY (DME) Omnipod 5 G6-G7 Intro Kt(Gen5) Cartridge See Rx Instructions .Route Qty: 1 1RF Rx Instructions: As directed (DME) Omnipod 5 G6-G7 Pods (Gen 5) Cartridge See Rx Instructions .ROUTE .MEDSUPPLY Qty: 45 2RF Rx Instructions: Change every 48-72 hours (DME) Dexcom G7 Sensor Device See Rx Instructions .ROUTE .MEDSUPPLY Qty: 9 3RF Rx Instructions: Use to monitor glcuose glucose [Dex4 Glucose] 4 gram tablet,chewable 16 g PO Q15M PRN (Reason: hypoglycemia) Qty: 60 1RF Rx Instructions: until symptoms of low blood sugar are controlled insulin glargine [Lantus Solostar U-100 Insulin] 100 unit/mL (3 mL) insulin pen 20 unit subcut QAM PRN (Reason: insulin pump malfunction ) Qty: 15 1RF Ozempic 1 mg/dose (4 mg/3 mL) pen injector 1 mg subcut WEEKLY 90 Days Qty: 9 4RF atorvastatin 20 mg Tablet 20 mg PO DAILY Qty: 30 2RF (DME) pen needle, diabetic [BD Ultra-Fine Julia Pen Needle] 32 gauge x 5/32 Needle Qty: 1 2RF Rx Instructions: May substitute to meet patient needs. Use As Directed (DME) lancets [OneTouch Delica Plus Lancet] 30 gauge Misc Qty: 1 0RF Rx Instructions: May substitute to in-stock and/or covered by insurance lancets. Use As Directed Gvoke HypoPen 2-Pack 1 mg/0.2 mL auto-injector 1 mg subcut ONCE PRN (Reason: low blood sugar) Rx Instructions: may repeat once after 15 minutes if no response Date of admission: 02/08/24 03:17 Primary Care Provider: PHYSICIAN NOT ON STAFF,NONSTAFF Admitting Provider: Rosalia Montes V. Attending physician on admission: Rosalia Montes V. Condition: Improved
== END 2024-02-09 16:30 | disposition home or self-care (01) ==
LOC: ANHED 02-08 03:17 → ANHICU 02-08 06:51 → ANH3MEDSUR 02-09 14:38 → ANHICU 02-11 07:48
PROVIDERS: Emergency Medicine; Internal Medicine; Admitting Provider Internal Medicine; Emergency Provider Physician Assistant; Visit Provider Internal Medicine
DX: E10.10 Type 1 diabetes mellitus with ketoacidosis without coma (principal); E10.59 Type 1 diabetes mellitus with other circulatory complications; I15.2 Hypertension secondary to endocrine disorders; D64.9 Anemia, unspecified; E78.00 Pure hypercholesterolemia, unspecified; R79.89 Other specified abnormal findings of blood chemistry; K52.9 Noninfective gastroenteritis and colitis, unspecified; R07.89 Other chest pain; Z20.822 Contact with and (suspected) exposure to COVID-19; Z79.4 Long term (current) use of insulin; Z96.41 Presence of insulin pump (external) (internal); Z79.899 Other long term (current) drug therapy; Z87.891 Personal history of nicotine dependence
CPT/HCPCS: 36415; 36600; 71046; 74177; 80048; 80053; 81003; 81025; 82010; 82375; 82805; 82948; 83036; 83050; 83605; 83690; 83735; 84100; 84484; 85014; 85018; 85025; 85610; 85730; 87040; 87637; 87641; 93005; 93306; 96360; 96361; 96365; 96366; 96368; 96372; 96375; 96376; 99285; A9270; G0378; G0379; J1650; J1815; J2543; J3480; J7030; J7070; J7120; Q9967

== ENCOUNTER 2024-07-25 16:32 | Outpatient (CLI) | payer OTHER, SELFPAY ==
--- OUTSIDE RECORDS SUMMARY | 2024-07-25 16:37 | XMS_ITS | Data Portability ---
Author Organization [facility] [place] Address [address] [place] [address] Assessment Encounter Date Assessment Date Assessment LastModified by Organization Details LastModified Time 07/31/2023 07/31/2023 Annual gynecological exam performed. Patient will come back in a year unless there are new symptoms. Not available 07/31/2023 16:37:42 Plan of Treatment Reminders Order Date Submit Date Provider Last Modified By Organization Details Last Modified Time Details Appointments None recorded. Lab hsv-1 igg Ab, serum [address] [facility] (Lab), [address] [place], [address], 3 21:45:50 hsv-2 igg Ab, serum [address] [facility] (Lab), [address] [place], [address], 3 21:45:50 hbcab (hepatitis B core Ab) igm, serum [address] [facility] (Lab), [address] [place], [address], 3 21:45:51 HBsAg (hepatitis B surface Ag), serum [address] [facility] (Lab), [address] [place], [address], 3 21:45:48 hepatitis C virus Ab, serum [address] [facility] (Lab), [address] [facility], [place], [address], 3 21:45:49 unlisted lab - HIV 1/2 antigen/ant ibody, reflex confirmatio n [address] [facility] (Lab), [address] [facility], [place], [address], 3 21:45:49 RPR (rapid plasma reagin), serum [address] [facility] (Lab), [address] [facility], [place], [address], 3 21:45:51 Referral None recorded. Procedures None recorded. Surgeries None recorded. Imaging MAMMO, diagnostic, digital, bilateral [address] [facility], [address], [place], [address], 4 05:01:01 US, breast, unilateral - left breast lumps, located around 9-12 oclock and 1-3 oclock [address] [facility], [address], [place], [address], 4 05:01:01 Medication Orders Valtrex 1 gram tablet 2023 024 [place] [address] [id number], [address] [place], [place], [id number], 4 16:39:22 Valtrex 1 gram tablet 2022 024 [place] [address] [facility] #[id number], [address] [place], [place], [id number], 4 16:39:22 Patient TargetsNo targets recorded. Patient InstructionsNo instructions recorded. Reason for Referral None Reported. Results Created Date Observation Date Name Description Value Unit Range Abnormal Flag Note LastModifiedBy Organization Detail LastModifiedTime 01/19/2001/18/2023 HEPAT ITIS B SURFA CE ANTIG EN hepatitis B surface antigen Non-re active non-re active This assay was perfo rmed using [employer] ratio n reage nts and test kits. Value s obtai jesus with other assay metho ds or kits canno t be used inter osorio eably . Not Available [facility] (Lab) [address], [place], [address], 01/19/2023 21:45:48 01/19/2001/18/2023 HIV 1/2 ANTIG EN/AN TIBOD Y, REFLE X CONFI RMATI ON HIV antigen/anti body Nonrea ctive nonrea ctive HIV-1 antig en and HIV-1 /HIV- 2 antib odies were not detec yanci. No labor atory evide nce of HIV infec tion. Not Available [facility] (Lab) [address] [facility], [place], [address], 01/19/2023 21:45:49 01/19/20 23 01/18/2023 HEPAT ITIS C ANTIB KRIS SCREE N, REFLE X TO CONFI RMATI ON hepatitis C antibody Non-re active non-re active Antib odies to HCV Not Detec yanci, does not exclu de the possi bilit y of expos ure to HCV. Not Available [facility] (Lab) [address], [place], [address], 01/19/2023 21:45:49 01/19/20 23 01/18/2023 HERPE S SMPLE X VIRUS TYPE 1 SPECI FIC AB, IGG herpes simplex virus 1 IgG Positi ve negati ve abnormal Not Available [facility] (Lab) [address], [place], [address], 01/19/2023 21:45:50 01/19/20 23 01/18/2023 HERPE S SMPLE X VIRUS TYPE 1 SPECI FIC AB, IGG herpes simplex virus 1 IgG, quant >8.0 ai 0.0-0. 8 high Not Available [facility] (Lab) [address] [facility], [place], [address], 01/19/2023 21:45:50 01/19/20 23 01/18/2023 HERPE S SIMPL EX VIRUS TYPE 2 SPECI FIC AB, IGG herpes simplex virus 2 IgG Positi ve negati ve abnormal Not Available [facility] (Lab) [address] [facility], [place], [address], 01/19/2023 21:45:50 01/19/20 23 01/18/2023 HERPE S SIMPL EX VIRUS TYPE 2 SPECI FIC AB, IGG herpes simples virus 2 IgG, quant >8.0 ai 0.0-0. 8 high Not Available [facility] (Lab) [address] [facility], [place], [address], 01/19/2023 21:45:50 01/19/20 23 01/18/2023 RPR SCREE N/REF JONA TITER /FTA RPR screen Nonrea ctive nonrea ctive Not Available [facility] (Lab) [address] [facility], [place], [address], 01/19/2023 21:45:51 01/19/20 23 01/18/2023 HEPAT ITIS B CORE, IGM hepatitis B core IgM antibody Negati ve negati ve Not Available [facility] (Lab) [address] [facility], [place], [address], 01/19/2023 21:45:51 01/19/20 23 01/18/2023 CT/GC AND TRICH OMONA S VAGIN TEMO (RRNA ), SWAB chlamydia trachomatis, PCR Negati ve negati ve Not Available [facility] (Lab) [address] [facility], [place], [address], 01/24/2023 05:49:52 01/19/20 23 01/18/2023 CT/GC AND TRICH OMONA S VAGIN TEMO (RRNA ), SWAB neisseria gonorrhoeae, PCR Negati ve negati ve Not Available [facility] (Lab) [address] [facility], [place], [address], 01/24/2023 05:49:52 01/19/20 23 01/18/2023 CT/GC AND TRICH OMONA S VAGIN TEMO (RRNA ), SWAB trichomonas vaginalis ribosomal RNA (rrna) Negati ve negati ve Not Available [facility] (Lab) [address] [place], [address], 01/24/2023 05:49:52 01/19/20 23 01/18/2023 CULTU RE: HERPE S SIMPL EX VIRUS (HSV) , REFLE X TYPIN G source LESION SCRAPI NGS Not Available [facility] (Lab) [address] [place], [address], 01/24/2023 05:49:52 01/19/20 23 01/18/2023 CULTU RE: HERPE S SIMPL EX VIRUS (HSV) , REFLE X TYPIN G hsv culture, body fluid NOT ISOLAT ED Perfo rming Organ izati on Infor matio n: Site ID: [id number] Name: [facility] joshua Shaun Addre ss: [address] [place] [address] Dire tor: Viral Jain s Not Available [facility] (Lab) [address] [place], [address], 01/24/2023 05:49:52 07/31/19 24 07/31/2023 IMAGE GUIDE D PAP AND HPV REGAR DLESS image guided Pap, HPV regardless of Pap result SEE RESULT S BELOW abnormal CASE REPOR T: Cytol ogy Gynec ologi kaiden Repor t Case: [id number] Autho ricady g Provi maury: Pili Choi, SENIOR TECHNICAL WRITER Colle cted: 07/30 1746 Order ing Locat ion: [place] [facility] Recei mariela: 06/19 /2024 0806 First Scree n: Suzanna Shelton, CT Rescr een: Jason Alexander, CT Speci men: Keena trevino Pap - Image d, Cervi x STATE MENT OF ADEQU ACY: Satis facto ry for evalu ation Trans forma tion zone compo nent absen t The absen ce of an endoc ervic al compo nent was confi rmed by an addit ional scree ner. ----- ----- ----- ----- ----- ----- ----- ----- ----- ----- ----- ----- ----- ----- ----- ----- ----- ---- FINAL DIAGN OSIS: Negat afshan for Intra epith elial Lesio n or Radha powers (NIL) . Shift in osiris sugge stive of bacte rial vagin osis. Elect hanna angel d by Jason Alexander, CT on 2023 at 4:06 PM ----- ----- ----- ----- ----- ----- ----- ----- ----- ----- ----- ----- ----- ----- ----- ----- ----- ---- HPV RESUL TS: HPV mRNA E6/E7 : Posit afshan - HPV mRNA Detec yanci HPV GENOT YPE 16 (KELLY) : Not Detec yanci HPV GENOT YPE 18/45 (KELLY) : Not Detec yanci NOTE: This high risk HPV mRNA assay detec ts fourt een high- risk HPV types (16, 18, 31, 33, 35, 39, 45, 51, 52, 56, 58, 59, 66, 68) witho ut diffe renti ation . This assay can diffe renti ate HPV 16 from HPV 18/45 , but does not diffe renti ate betwe en HPV 18 and HPV 45. A negat afshan HPV 16, 18/45 genot ype assay resul t does not exclu de the possi bilit y of cytol ogic abnor malit ies or of futur e or under lying BERNARDO 1, BERNARDO 3 or cance r. COMME NT: This speci men was revie wed by a Cytot echno logis t and/o r Patho logis t (as indic ated in this repor t) after evalu ation using the Thinp rep Imagi ng Syste m. CLINI KAIDEN INFOR MATIO N: Menst rual Statu s: LMP (if appli cable ): Clini kaiden Histo ry/Pr eviou s Pap: Type of Neopl fernando (if appli cable ): Signi fican t Clini kaiden Findi ngs: Other Histo ry: Hormo ashley (if appli cable ): PAP EDUCA SHASHA L NOTE: The Pap Test is a scree uriel test with an inher ent false negat afshan rate. Liqui d-bas ed sampl ing may decre ase, but will not elimi aileen, false negat afshan resul ts. A negat afshan resul t does not precl ude the prese nce and/o r devel opmen t of disea se, since the prese nce of abnor mal cells in the sampl e depen ds on the locat ion of the lesio n and sampl ing techn ique. Sophie nued regul ar scree uriel is the best metho d of cance r preve ntion . If repor yanci cytol ogic findi ng do not corre late with physi kaiden and/o r histo rical findi ngs, furth er inves tigat ion is recom judy d, as clini toño day nted. Not Available [facility] (Lab) [address], [place], [address], 08/03/2023 14:46:23 11/29/19 24 11/29/2023 [facility] H SWAB PLUS, FRANCK bacterial vaginosis (bv), tma Positi ve negati ve abnormal Not Available [facility] (Lab) [address], [place], [address], 11/30/2023 14:28:42 11/29/19 24 11/29/2023 [facility] FRANCK isabell species, tma Negati ve negati ve Not Available [facility] (Lab) [address] [place], [address], 11/30/2023 14:28:42 11/29/19 24 11/29/2023 [facility], FRANCK isabell glabrata, tma Negati ve negati ve Not Available [facility] (Lab) [address] [place], [address], 11/30/2023 14:28:42 11/29/19 24 11/29/2023 [facility], FRANCK trichomonas vaginalis, tma Positi ve negati ve abnormal Not Available [facility] (Lab) [address] [place], [address], 11/30/2023 14:28:42 11/29/19 24 11/29/2023 [facility], FRANCK chlamydia trachomatis, PCR Negati ve negati ve Not Available [facility] (Lab) [address] [place], [address], 11/30/2023 14:28:42 11/29/19 24 11/29/2023 [facility], FRANCK neisseria gonorrhoeae, PCR Negati ve negati ve Bacte rial vagin osis detec ts the follo wing bacte paulo assoc iated with bacte rial vagin osis (BV): Lacto bacil alecia (L. gasse ri, L. crisp atus and L. jense clarke), Gardn erell a vagin temo, and Atopo bium vagin ae. A singl e quali tativ e resul t is repor yanci base on instr ument softw are to deter mine BV posit afshan or negat afshan statu s. The Edilia [facility] speci es group tests for C. albic ans, C. tropi calis , C. parap clemencia is, C. dubli ni is. Testi ng is perfo rmed using the Trans cript ion Media yanci Ampli ficat ion metho d. Tests for Edilia da glabr feng, Trich omona s vagin temo, Chlam ydia trach omati s, and Neiss eria gonor rhoea e are also inclu ded in this panel . Not Available [facility] (Lab) [address] [facility], [place], [address], 11/30/2023 14:28:42 01/31/20 24 01/31/2024 CT/GC AND TRICH OMONA S VAGIN TEMO (RRNA ), URINE chlamydia trachomatis, PCR Negati ve negati ve Not Available [facility] (Lab) [address] [facility], [place], [address], 02/01/2024 13:42:46 01/31/20 24 01/31/2024 CT/GC AND TRICH OMONA S VAGIN TEMO (RRNA ), URINE neisseria gonorrhoeae, PCR Negati ve negati ve Not Available [facility] (Lab) [address] [facility], [place], [address], 02/01/2024 13:42:46 01/31/20 24 01/31/2024 CT/GC AND TRICH OMONA S VAGIN TEMO (RRNA ), URINE trichomonas vaginalis ribosomal RNA (rrna) Negati ve negati ve Not Available [facility] ([facility]) [address] [facility], [place], [address], 02/01/2024 13:42:46 Result Notes None recorded. Procedures Surgical History Date Name Laterality Status Provider Name and Address Organization Details Recorded Time 05/28/19 21 IUD Removal completed [facility] 05/27/2020 16:58:23 05/28/19 21 IUD Insertion completed [facility] 06/08/2020 10:43:21 05/28/19 21 IUD Removal completed [facility] 06/07/2020 23:47:21 05/28/19 21 IUD Insertion completed Nighat Pendleton [facility] 06/07/2020 23:49:59 02/12/19 13 hemorrhoidectomy completed Lizzie Buenrostro [facility] 03/15/2020 11:29:22 Imaging Results None recorded. Procedure Notes None recorded. Medical Equipment None Reported. Allergies No known drug allergies Medications Name Sig Start Date Stop Date Status Note LastModified by Organization Details LastModified Time losartan 50 mg tablet TAKE 1 TABLET BY MOUTH EVERY DAY IN THE MORNING active Not Available Not Available No t Available cyclobenzap rine 10 mg tablet TAKE 1 TABLET BY MOUTH EVERY DAY AT BEDTIME 07/18 completed Not Available Not Available Not Available amoxicillin 500 mg capsule TAKE 1 CAPSULE BY MOUTH EVERY 8 HOURS FOR 10 DAYS 07/18 completed Not Available Not Available Not Available metformin 500 mg tablet TK 1 T PO BID 05/04 completed Not Available Not Available Not Available atorvastati n 20 mg tablet TAKE 1 TABLET BY MOUTH DAILY active Not Available Not Available No t Available clindamycin HCl 300 mg capsule TAKE 1 CAPSULE BY MOUTH TWICE DAILY FOR 7 DAYS 11/28 completed Not Available Not Available Not Available azithromyci n 250 mg tablet TAKE 2 TABLETS BY MOUTH TODAY, THEN TAKE 1 TABLET DAILY FOR 4 DAYS 07/18 completed Not Available Not Available Not Available ibuprofen 800 mg tablet TAKE 1 TABLET BY MOUTH EVERY 6 HOURS NEEDED FOR PAIN 07/18 completed Not Available Not Available Not Available fluconazole 150 mg tablet TAKE 1 TABLET BY MOUTH DIRECTED 01/18 completed Not Available Not Available Not Available valacyclovi r 1 gram tablet TAKE 1 TABLET BY MOUTH EVERY DAY FOR 5 DAYS 07/30 completed Not Available Not Available Not Available metronidazo le 0.75 % (37.5 mg/5 gram) vaginal gel Insert 1 applicato rful every day by vaginal route for 5 days. 08/22 completed Not Available Not Available Not Available prednisone 20 mg tablet 07/18 completed Not Available Not Available Not Available phentermine 15 mg capsule TAKE 1 CAPSULE BY MOUTH EVERY DAY 07/18 completed Not Available Not Available Not Available metronidazo le 500 mg tablet TAKE 4 TABLETS BY MOUTH EVERY DAY FOR 1 DAY active Not Available Not Available No t Available valacyclovi r 500 mg tablet TAKE 1 TABLET BY MOUTH TWICE DAILY FOR 3 DAYS active Not Available Not Available No t Available ondansetron 8 mg disintegrat ing tablet DISSOLVE 1 TABLET IN MOPUTH EVERY 8 HOURS NEEDED FOR NAUSEA active Not Available Not Available No t Available OneTouch Ultra Test strips USE TO TEST BLOOD SUGAR THREE TIMES DAILY active Not Available Not Available No t Available metformin 1,000 mg tablet TAKE 1 TABLET BY MOUTH TWICE DAILY 07/18 completed Not Available Not Available Not Available docusate sodium 100 mg capsule TAKE 1 CAPSULE BY MOUTH TWICE DAILY 06/09 completed Not Available Not Available Not Available clindamycin 2 % vaginal cream INSERT 1 APPLICATO RFUL VAGINALLY EVERY DAY AT BEDTIME FOR 7 DAYS 11/28 completed Not Available Not Available Not Available insulin lispro (U-100) 100 unit/mL subcutaneou s solution INJECT UP TO 150 UNITS VIA INSULIN PUMP VIA SLIDING SCALE EVERY 3 DAYS active Not Available Not Available No t Available scopolamine 1 mg over 3 days transdermal patch APPLY 1 PATCH EVERY 72 HOURS DIRECTED active Not Available Not Available No t Available intrauterin e device (IUD) Take by intrauter ine route. 07/18 completed Not Available Not Available Not Available metformin ER 500 mg tablet,exte nded release 24 hr TK 2 TS PO BID 05/04 completed Not Available Not Available Not Available Ketostix strips active Not Available Not Available Not Available insulin lispro (U-100) 100 unit/mL subcutaneou s pen ADMINISTE R 20 UNITS UNDER THE SKIN THREE TIMES DAILY BEFORE MEALS active Not Available Not Available No t Available Novolog FlexPen U-100 Insulin aspart 100 unit/mL (3 mL) subcutaneou s INJECT 3 UNITS UNDER THE SKIN 3 TIMES A DAY 07/18 completed Not Available Not Available Not Available pregabalin 50 mg capsule active Not Available Not Available Not Available varenicline tartrate 0.5 mg (11)-1 mg (42) tablets in a dose pack TK DIRECTED active Not Available Not Available No t Available Chantix 1 mg tablet TK 1 T PO BID 03/15 completed Not Available Not Available Not Available Januvia 100 mg tablet TAKE 1 TABLET BY MOUTH EVERY DAY 01/18 completed Not Available Not Available Not Available Lantus Solostar U-100 Insulin 100 unit/mL (3 mL) subcutaneou s pen INJECT 10 UNITS UNDER SKIN EVERY EVENING active Not Available Not Available No t Available OneTouch Ultra Blue Test Strip USE TO TEST 5 TIMES DAILY UTD active Not Available Not Available No t Available Dexcom G6 Sensor device CHANGE SENSOR EVERY 10 DAYS FOR 90 DAYS active Not Available Not Available No t Available Dexcom G6 Patient Service Technician Pst USE DIRECTED FOR CONTINUOU S GLUCOSE MONITORIN G active Not Available Not Available No t Available Dexcom G6 Transmitter device CHANGE EVERY 90 DAYS active Not Available Not Available No t Available Omnipod Dash Pods (Gen 4) subcutaneou s cartridge USE DIRECTED AND CHANGE POD EVERY 72 HOURS FOR 90 DAYS active Not Available Not Available No t Available BD Julia 2nd Gen Pen Needle 32 gauge x USE WITH NOVOLOG INJECTION S 3 TIMES DAILY active Not Available Not Available No t Available OneTouch Ultra2 Meter USE DIRECTED active Not Available Not Available No t Available OneTouch Delica Plus Lancet 33 gauge DIRECTED active Not Available Not Available No t Available Gvoke HypoPen 2-Pack 1 mg/0.2 mL subcutaneou s auto-inject or INJECT 1 MG UNDER SKIN NEEDED active Not Available Not Available No t Available FreeStyle Gofdrey 2 Sensor kit CHANGE SENSOR EVERY 14 DAYS X 90 DAYS active Not Available Not Available No t Available Ozempic 0.25 mg or 0.5 mg (2 mg/3 mL) subcutaneou s pen injector INJECT 0.5 MG UNDER THE SKIN ONCE EVERY WEEK AT DINNER FOR 90 DAYS active Not Available Not Available No t Available Vitals Date Recorded Body height Body mass index (BMI) Body weight Systolic blood pressure Diastolic blood pressure Provider Name and Address Organization Details Last Updated DateTime 07/19/2023 167.64 cm 30.2 kg/m2 08660.77 g 152 mm[Hg] 83 mm[Hg] [facility] 16:20:41 Date Recorded Body height Body mass index (BMI) Body weight Systolic blood pressure Diastolic blood pressure Provider Name and Address Organization Details Last Updated DateTime 07/31/2023 167.64 cm 30.2 kg/m2 22428.77 g 111 mm[Hg] 74 mm[Hg] [facility] 4 16:39:03 Date Recorded Body height Body mass index (BMI) Body weight Systolic blood pressure Diastolic blood pressure Provider Name and Address Organization Details Last Updated DateTime 11/29/2023 167.64 cm 30.2 kg/m2 84863.77 g 142 mm[Hg] 90 mm[Hg] Esme Kelly [facility] 4 11:46:41 Date Recorded Body height Body mass index (BMI) Body weight Systolic blood pressure Diastolic blood pressure Provider Name and Address Organization Details Last Updated DateTime 01/18/2023 167.64 cm 29.9 kg/m2 24237.03 g 143 mm[Hg] 83 mm[Hg] Alicia Aguilar [facility] 3 15:50:26 Date Recorded Body height Body mass index (BMI) Body weight Systolic blood pressure Diastolic blood pressure Provider Name and Address Organization Details Last Updated DateTime 01/31/2024 167.64 cm 30.2 kg/m2 10370.77 g 130 mm[Hg] 80 mm[Hg] Cynthia Brown [facility] 5 09:47:35 Social History Question Answer Notes LastModified by Organizat ion Details LastModified Time Tobacco Smoking Status Former Smoker Elba Jung iovry, [facility] 01/18/2023 15:43:47 How Many Years Have You Consumed Alcohol? 15 Information not available 03/15/2020 Are You Blind Or Do You Have Difficulty Seeing? No [email or web address] Information not available 01/18/2021 What Is Your Level Of Caffeine Consumption? Occasional Information not available 03/15/2020 How Much Tobacco Do You Chew? None [email or web address] Information not available 11/29/2023 In The 14 Days Before Symptom Onset, Have You Had Close Contact With A Laboratory-confir med COVID-19 While That Case Was Ill? No Information not available 07/19/2023 In The 14 Days Before Symptom Onset, Have You Had Close Contact With A Person Who Is Under Investigation For COVID-19 While That Person Was Ill? No Information not available 07/19/2023 Have You Been To An Area Known To Be High Risk For COVID-19? No Information not available 07/19/2023 Are You Deaf Or Do You Have Serious Difficulty Hearing? No [email or web address] Information not available 01/18/2021 What Type Of Diet Are You Following? DIABETIC [email or web address] Information not available 01/18/2021 How Many Days Of Moderate To Strenuous Exercise, Like A Brisk Walk, Did You Do In The Last 7 Days? 5 [email or web address] Information not available 01/18/2023 On Those Days That You Engage In Moderate To Strenuous Exercise, How Many Minutes, On Average, Do You Exercise? 30 [email or web address] Information not available 01/18/2023 Have You Ever Been Counseled For Unhealthy Alcohol Use? No [email or web address] Information not available 01/18/2023 At What Age Did You Start Smoking Tobacco? 14 Information not available 03/15/2020 How Much Tobacco Do You Smoke? No [email or web address] Information not available 11/29/2023 Has Tobacco Cessation Counseling Been Provided? No [email or web address] Information not available 01/18/2023 How Many Years Have You Smoked Tobacco? 20 Information not available 03/15/2020 Have You Used IV Drugs? No [email or web address] Information not available 11/29/2023 Do You Have Difficulty Walking Or Climbing Stairs? No [email or web address] Information not available 01/18/2023 How Many Days In The Past Year Have You Consumed 4 Or More Drinks? 10 [email or web address] Information no t available 01/18/2023 Sex: Unknown Functional Status Question Answer Note LastModified by Organizat ion Details LastModified Time Do you use any illicit or recreational drugs? No Information not available 03/15/2020 Do you or have you ever used any other forms of tobacco or nicotine? No [email or web address] Information not available 01/18/2023 What is your level of alcohol consumption? Occasional Information not available 03/15/2020 Are you able to walk? YESWOREST [email or web address] Information not available 01/18/2021 Are you able to care for yourself? Yes [email or web address] Information n ot available 01/18/2023 Do you have difficulty dressing or bathing? No [email or web address] Information not available 01/18/2023 What is your exercise level? Moderate Information not available 03/15/2020 Mental Status None recorded. Family History Relationship Description Onset Age of this Age Resolved Age Notes LastModified by Organization Details LastModified Time Sister Asthma [email or web address] Not available 16:29:18 Father Heart disease [email or web address] Not available 2021 16:29:18 Father Hyperlipidem ia [email or web address] Not available 2023 16:57:26 Father Hypertensive disorder [email or web address] Not available 2021 16:29:18 Mother Mental disorder [email or web address] Not available 2021 16:29:18 Maternal Grandmother Malignant tumor of breast [email or web address] Not available 2021 16:29:18 Maternal Grandmother Diabetes mellitus [email or web address] Not available 2021 16:29:18 Maternal Grandfather Heart disease [email or web address] Not available 2021 16:29:18 Paternal Grandfather Heart disease [email or web address] Not available 2021 16:29:18 Paternal Grandmother Diabetes mellitus [email or web address] Not available 2021 16:29:18 Paternal Grandmother Hyperlipidem ia [email or web address] Not available 2023 16:57:26 Paternal Grandmother Hypertensive disorder [email or web address] Not available 2021 16:29:18 Medical History Condition Response Allergies (Food, seasonal, environmental ) N Other N Breast Cancer N Drug/Latex Allergies/Reactions N Blood Transfusion N Dermatologic Disorders N Lung Disease N Defects or Inherited Disease N Breast Problem N Gestational Diabetes N Hematologic disorders N Anesthesia Complications N History of STI Y Deep Vein Thrombosis N Polycystic ovary syndrome N Anxiety Disorder N Autoimmune disease N Arthritis N Infertility N Polyps N Acid Reflux (GERD) N History of abnormal pap N Cancer N Stroke N Varicosities N Neurologic/Epilepsy N Endometriosis N High Cholesterol Y Headaches N Fibromyalgia N Kidney Disease N Heart Problems N Kidney or Bladder Problems N Thyroid Problems N GI Problems N Eating Disorder N Anemia N Art (IVF or FET) N Psychiatric Illness N Ovarian Cancer N Diabetes Y Pulmonary (TB, Asthma) N Hepatitis/Liver Disease N No Past Medical History N Eczema N Urinary Tract Infection N Abuse/Domestic Violence N Asthma N Trauma/Violence N Depression/ depression N Heart Disease N Pre-Eclampsia N Hypertension Y Osteoporosis N Thrombophilias N Gynecological History Statement/Question Response Abnormal Pap N Flow Light Date of Last Mammogram Date of LMP 04/12/2020 On BCP's at Conception? N STIs/STDs Y HPV Vaccine N Colposcopy 12 Current Control Method IUD Date of Last Colonoscopy Sexually Active? Y Date of DEXA bone scan Age of first menstrual cycle 12 Date of Last Pap Smear Sexual Problems? N LMP Approximate Obstetrics History GPAL:G 2 P 0 0 2 0 Type Value Induced 1 Spontaneous 1 Total 2 Past Encounters Encounter ID Performer Location Encounter Start Date Encounter Closed Date Diagnosis/Indication Diagnosis SNOMED-CT Code Diagnosis ICD10 Code Diagnosis Note [id number] Doc Varner MD [facility] [address],[facility] [place] [address] 03/15/2020 11:23:06 03/15/2020 14:03:51 Gynecologic examination 77462790 Z01.419 This patient is here for her annual exam. A thorough history was taken. A physical exam was performed. Age appropriat e routine health screening was ordered, performed, and discussed. Recommende d testing was ordered. She was asked to follow up in one year. She will be informed of any test results. Std testing requested Pap - today [id number] Nighat Pendleton CNM [facility] [address],[facility] [place] [address] 05/04/2020 14:41:47 05/04/2020 16:52:58 Vaginitis 37918812 N76.0 Discussed use of mild soap like dove or ivory, cotton underwear w/out dye, hypoallerg enic detergent, wipe from front to back, avoid tub baths, keep perineum clean and dry, d/c use of baby wipes. Encouraged daily intake of yogurt or womens health probiotic. Internal and external affirm collected. [id number] Nighat Pendleton CNM [facility] [address] [address] 05/27/2020 14:09:11 05/30/2020 21:38:22 Removal of intrauterine device 65226625 Z30.432 Insertion of intrauterine contraceptive device 33947858 Z30.430 RTC in 4 weeks. Sooner if any problems or concerns. [id number] Nighat Pendleton [facility] [address],[place] [address] 05/27/2020 16:12:49 05/30/2020 21:38:32 Insertion of intrauterine contraceptive device 19326095 Z30.430 RTC in 4 weeks. Sooner if any problems or concerns. Removal of intrauterine device 44996664 Z30.432 [id number] Elaine Levi [facility] [address],[place] [address] 01/18/2021 11:00:40 01/18/2021 11:34:06 Mechanical complication of intrauterine contraceptive device 466103171 T83.39XD Vaginitis 88619751 N76.0 [id number] Doc Varner MD [facility] [address],[place] [address] 01/18/2021 11:20:31 01/18/2021 12:29:47 Pain in pelvis 81251207 R10.2 [id number] Christy Umaña MD [facility] [address],[place] [address] 05/09/2021 16:00:47 05/09/2021 16:15:03 [id number] WYATT Ribera [facility] [address],[place] [address] 06/09/2021 16:08:56 06/09/2021 17:16:02 Venereal disease screening 293399258 Z11.3 Sexually t ransmitted infectious disease 5486530 A64 Gynecologi c examination 99563979 Z01.419 Z11.51 Take Calcium with Vitamin D 1200mg daily if not receiving in daily diet. It is strongly advised to have an annual flu shot and up can obtain at most pharmacies . If you have not had a TDap shot in the last 10 years you should obtain one as well. Discussed with patient & provided with informatio n regarding Gardisil vaccine to prevent the 4 strains for HPV that cause cervical cancer if under age 26. Encourage safe sexual practices, to use condoms and limit partners if not already in a monogamous relationsh ip. Do monthly self breast exams. Have mammogram yearly or every other year depending on family history. BRCA testing is now available for patients with strong genetic history of female cancer. If interested contact the office. Engage in daily exercise of low impact aerobic exercise 45-60 minutes 4-5 times weekly. Avoid tobacco and illicit drugs as well as using moderation with alcohol intake less than 1-2 8 oz beverages daily. This lifestyle behavior pattern will lead to less health conditions and longer life span. If BMI greater than 25 weight watchers or dietary consult advised. Patient received above instructio ns, and questions have been answered. If you have any questions please call or respond to this email. Patient was made aware of the patient portal and may obtain a paper copy of today's plan if desired.Hx of ASCUS pap in 2020, HR HPV negative.P ap done todaySTI testing added to pap, blood STI testing orderedHap py with Mirena IUD, inserted 05/27/2020F amily hx of grandmothe r with breast cancer diagnosed in her 40's. We discussed option of starting mammograms now. She declined. Will offer again at next [employer].RTC in one year for WWE or sooner if needed [id number] WYATT Ribera [facility] [address] [address] 01/18/2023 15:43:13 01/19/2023 09:45:21 Lesion of vulva 808397581 N90.89 suspect possible primary HSV outbreakHS V PCR sentgc/ct/ trich testing sentblood STI panel orderedrx for valtrex coursedisc ussed HSV in-depthno IC w/ symptoms, condom use encouraged call the office with any future outbreak for valtrex courseRTC if symptoms persist past treatment Time spent in visit is a total of 30 mins with at least 50% of visit consisting of counseling and review of plan of care. Venereal d isease screening 112104730 Z11.3 Sexually t ransmitted infectious disease 9146911 A64 [id number] WYATT Ribera [facility] [address] [address] 07/19/2023 16:17:31 07/20/2023 09:42:45 Lesion of vulva 465161093 N90.89 suspect HSV lesion given appearance and HSV hxrx for valtrexHSV PCR sentgc/ct/ trich testing sentsafe sexual practices discussedq uestions answeredRT C for WWE or sooner if needed Time spent in visit is a total of 25 mins with at least 50% of visit consisting of counseling and review of plan of care. Venereal d isease screening 001592680 Z11.3 [id number] WYATT Ribera [facility] [address],[place] [address] 07/31/2023 16:35:20 07/31/2023 18:22:36 Gynecologic examination 29784925 Z01.419 Z11.51 [employer] - mirena IUD, inserted 05/27/2020 ap updateddec lined STI screenrout ine labs/PCPRT C in 1 yr or sooner if needed It is strongly advised to have an annual flu shot and up can obtain at most pharmacies . If you have not had a TDap shot in the last 10 years you should obtain one as well. Discussed with patient & provided with informatio n regarding HPV vaccine if applicable . Encourage safe sexual practices, to use condoms and limit partners if not already in a monogamous relationsh ip. Do monthly self breast exams. BRCA testing is now available for patients with strong genetic history of female cancer. If interested contact the office. Engage in regular exercise. Avoid tobacco and illicit drugs. This lifestyle behavior pattern will lead to less health conditions and longer life span. If BMI greater than 25 dietary consult advised. Patient received above instructio ns, and questions have been answered. If you have any questions please call or respond to this email. Patient was made aware of the patient portal and may obtain a paper copy of today's plan if desired. Breast lump 14099807 N63 .0 bilateral diagnostic mammogram with left breast u/s ordered [id number] Doc Varner MD [facility] [address],[facility] [place] [address] 11/29/2023 11:29:33 11/29/2023 11:54:22 Vaginal discharge 085971018 N89.8 [id number] Doc Varner MD [facility] [address],[facility] [place] [address] 01/31/2024 16:57:19 02/26/2024 10:14:56 Health Concerns Section Related Observation LastModified by Organization Detai ls LastModified Time None Recorded Concern Status LastModified by Organization Details LastModified Time None Recorded Advance Directives Directive None Recorded Payers Insurance Date Sequence Insurance Name Policy Number Policy Fernandez Covered Member ID Fernandez Member ID Guarantor Name 11/28/2023 1 [facility] PRIOR TO 08/12/2020 (MEDICAID REPLACEMENT - HMO) Leeann Sotelo [id number] Leeann Sotelo 02/27/2024 1 [facility] - DOS ON OR AFTER 20 (MEDICAID REPLACEMENT - HMO) Leeann Sotelo [id number] Leeann Sotelo 01/16/2023 1 [employer] [id number] Torres Aparicio [place] [id number] Leeann Sotelo 06/09/2021 1 [employer] (POS II) [id number] Torres Aparicio [place] [id number] Leeann Bell Notes Date Note Type Note Provider Name and Address Organization Details Recorded Time 01/18/2023 text/html 37yopresents for evaluation of vulvar lesions and STI testingher partner was diagnosed with a primary HSV outbreak 2 weeks ago at . 1 week ago she started having symptoms of lesions located on left inner thigh near buttock. Tender to touch but healing.neg vaginal d/c, odors, itchingneg pelvic painneg n/v/fneg flu-like symptomsmirena IUD for BC WYATT Ribera [address], [place], [address], [facility] 01/19/2023 09:31:31 07/19/2023 text/html 38yopresents for evaluation of vulvar lesionnoticed 2 days agoslightly tender to touchno drainage or bleedingSA with new partner, would like STI testingh/o HSVMirena IUD for BC neg pelvic painneg n/v/fneg flu-like symptoms WYATT Ribera [address], [place], [address], [facility] 07/20/2023 09:23:33 07/31/2023 text/html Annual GYNReport ed bypatient.Menstrual cycle:Normal menses Urinary symptoms:No hematuria; No incontinence Vulva:No genital lesion Vagina:Normal vaginal discharge Breast:No breast pain; No breast lump; No nipple discharge Current Contraception:Satisf ied with current contraception; Intrauterine device (iud); Mirena IUD, inserted 05/27/2020 Sexual complaints:No sexual complaints; No pain during intercourse; Normal libido Menopausal Symptoms:No menopausal symptoms; Normal vaginal lubrication Psychological symptoms:No depression; No anxiety; No PMDD Preventive measures:Encourage self breast examination; Encourage regular exercise; Encourage no tobacco use; Encourage regular mammograms starting age 40Notes:38yo [employer] - mirena IUD, inserted 05/27/2020ast pap 05/2021 : vesna, HPV (-) Pili Choi, WY[facility] [address], [place], [address], [facility] 07/31/2023 17:46:09 OBGyn Episode Ob Episode Information Episode Created Date Number of Fetuses Patient Bloodtype Patient rh Status Prepregnancy Weight lbs Domestic Partner Domestic Partner Phone Father Name Water Fabricator Operator Status 03/15/19 21 1 CLOSED Fetus Data First Name Last Name Admitted to NICU Weight (g) Sex Living Outcome Pediatric Complications Fetus ID Race Codes Race Delivery Type , Induced [id number] Alo Calculation Initial Alo Date Initial Exam Date Initial Exam Provider Initial Ultrasound Date Last Menstrual Period Date Ultra Sound Weeks Gestation 0 Eighteen To Twenty Week Alo Update Ultra Sound Date Fundal Height At Umbil Quickening Date Ultra Sound Latest Weeks Gestation Final Alo Confirmed By Final Alo Confirmed Date Final Alo Date Ultra Sound Latest Days Gestation 0 0 Menstrual History Last Menstrual Date Menses Monthly On Bcp Conception Prior Menses Frequency Hcg Plus Date Menarche Onset Age Delivery Information Delivery Date Delivery Type Labor Anesthesia Weeks Gestation Incision Type Labor Labor Length Hrs Delivered By Post Complications Tubal Sterilization Discharge Date Comments 6 Discharge Information Feeding Method Contraceptive Method Maternal HG B and HCT Levels Ob Episode Information Episode Created Date Number of Fetuses Patient Bloodtype Patient rh Status Prepregnancy Weight lbs Domestic Partner Domestic Partner Phone Father Name Water Fabricator Operator Status 03/15/19 21 1 CLOSED Fetus Data First Name Last Name Admitted to NICU Weight (g) Sex Living Outcome Pediatric Complications Fetus ID Race Codes Race Delivery Type , Spontane ous [id number] Alo Calculation Initial Alo Date Initial Exam Date Initial Exam Provider Initial Ultrasound Date Last Menstrual Period Date Ultra Sound Weeks Gestation 0 Eighteen To Twenty Week Alo Update Ultra Sound Date Fundal Height At Umbil Quickening Date Ultra Sound Latest Weeks Gestation Final Alo Confirmed By Final Alo Confirmed Date Final Alo Date Ultra Sound Latest Days Gestation 0 0 Menstrual History Last Menstrual Date Menses Monthly On Bcp Conception Prior Menses Frequency Hcg Plus Date Menarche Onset Age Delivery Information Delivery Date Delivery Type Labor Anesthesia Weeks Gestation Incision Type Labor Labor Length Hrs Delivered By Post Complications Tubal Sterilization Discharge Date Comments 1 Discharge Information Feeding Method Contraceptive Method Maternal HG B and HCT Levels
--- OUTSIDE RECORDS SUMMARY | 2024-07-25 16:37 | XMS_ITS | Data Portability ---
Author Organization [place] [facility] [employer], Main Office Address [address] [place] [address] Care Team Providers Care Equipment Scheduler Name Role Phone DRISSHUEY Primary Care Provider [phone] HUEY NAQVI Referring Provider [phone] Assessment No assessment recorded. Plan of Treatment Reminders Order Date Submit Date Provider Last Modified By Organization Details Last Modified Time Details Appointments None recorded. Lab None recorded. Referral cardiologi st referral - DKA day after Riley , out of needles . BP low , hospital said troponin levels were elevated , needs to see Cardiology .. Please eval and treat. Please call patient to schedule an appointmen t. 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 Please call patient to schedule an appointmen t. Thank you 2023 024 [email or web address] Richard Augustin DP, [address] [facility], [address], [place], [address], 5 08:23:23 diabetic ophthalmol ogy referral - needs dilated eye exam. Please call patient to schedule an appointmen t. Thank you 2023 024 [email or web address] [facility], [address], [place], [address], 5 08:23:01 physical therapist referral - *Please call pt to schedule* [address] [place] [address] Physical Therapy, [address], [place], [address], 4 09:19:42 diabetic ophthalmol ogy referral - needs dilated eye exam . thank you 2022 023 [email or web address] [employer], [address], [place], [address], 4 18:43:08 endocrinol ogy referral 2022 023 MAKAYLA Blue MD, [address], [place], [address], 3 15:40:32 Procedures None recorded. Surgeries None recorded. Imaging US, extremity, nonvascula r, complete - left shoulder , physical therapy not helping *Please call pt to schedule* 2023 024 [facility] ([facility]), [address] [place], [address], 4 15:11:46 XR, shoulder, 2 or more view [address] ([facility] Call Scheduling), [address] [place], [address], 4 08:58:16 Medication Orders atorvastat in 20 mg tablet 2024 025 [facility], [address] [facility], [place], [place], [id number], 5 16:36:10 [employer] Starting Month Box 0.5 mg (11)-1 mg (42) tablets in dose pack 2023 024 VARNEY [facility], [address] , [place], [place], [id number], 4 16:33:53 atorvastat in 20 mg tablet 2023 024 [facility] #91198, [address], [place], [place], [id number], 4 16:28:45 Ozempic 1 mg/dose (2 mg/1.5 mL) subcutaneo us pen injector 2023 024 [facility] #06205, [address], [place], [place], [id number], 4 16:32:09 pregabalin 50 mg capsule 2023 024 [facility] #25318, [address], [place], [place], [id number], 4 16:28:42 pregabalin 150 mg capsule 2023 024 [facility] #46382, [address], [place], [place], [id number], 4 16:28:40 losartan 50 mg tablet 2023 024 [facility] #76044, [address], [place], [place], [id number], 4 16:31:14 prednisone 20 mg tablet 2023 024 [facility] #79173, [address], [place], [place], [id number], 4 16:11:11 cyclobenza david 10 mg tablet 2023 024 [facility] #05704, [address], [place], [place], [id number], 4 16:10:46 insulin lispro (U-100) 100 unit/mL subcutaneo us solution 2022 023 [facility], [address], [place], [place], [id number], 3 15:58:48 atorvastat in 20 mg tablet 2022 023 [email or web address] 1 [facility] #65420, [address], [place], [place], [id number], 3 15:49:53 Ozempic 0.25 mg or 0.5 mg (2 mg/3 mL) subcutaneo us pen injector 2022 023 [facility] #36347, [address], [place], [place], [id number], 3 15:28:41 insulin lispro (U-100) 100 unit/mL subcutaneo us solution 2022 023 [facility]855, [address] [facility], [place], [place], [id number], 3 15:30:16 [employer] HypoPen 2-Pack 1 mg/0.2 mL subcutaneo us auto-injec tor 2022 023 [facility] [employer] #18376, [address], [place], [place], [id number], 3 16:20:40 Patient TargetsNo targets recorded. Patient InstructionsNo instructions recorded. Reason for Referral Endocrinology Referral for L atent autoimmune diabetes mellitus in adult Referring Physician: Gracy Ochoa, Endocrinology, Encounter Date: 11/09/2022 Physical Therapist Referral for Strain of muscle of left shoulder *Please call pt to schedule* Referring Physician: Francois Houser, Family Medicine, Encounter Date: 01/29/2023 Diabetic Ophthalmology Refer ral for Latent autoimmune diabetes mellitus in adult needs dilated eye exam . thank you Referring Physician: Francois Houser [facility], Encounter Date: 01/29/2023 Diabetic Ophthalmology Refer ral for Type 2 diabetes mellitus without complication needs dilated eye exam. Please call patient to schedule an appointment. Thank you Referring Physician: Francois Houser [facility] Medicine, Encounter Date: 01/24/2024 Electrologist Referral for Ingr owing toenail ingrowing toe nail , needs diabetic foot care . Please call patient to schedule an appointment. Thank you Referring Physician: Francois Houser [facility] Medicine, Encounter Date: 01/24/2024 Studio [employer] Referral for Lo w blood pressure DKA day after Riley , out of needles . BP low , hospital said troponin levels were elevated , needs to see Cardiology .. Please eval and treat. Please call patient to schedule an appointment. Thank you Referring Physician: Francois Houser [facility], Encounter Date: 04/24/2024 Results Created Date Observation Date Name Description Value Unit Range Abnormal Flag Note LastModifiedBy Organization Detail LastModifiedTime 05/22/19 24 05/21/2023 US, extre joaquina, hood scula r, compl ete No observ ation record ed. [facility] ([facility] Call Sched[facility]) [address] [place], [address], 08/02/2023 17:03:21 05/22/19 24 05/21/2023 XR, shoul maury, 2 or more view No observ ation record ed. [facility] [address] [place], [address], 08/02/2023 17:03:22 Result Notes None recorded. Problems Name Problem SNOMED Code Status Onset Date Resolution Date Notes Provider Name and Address Organization Details Recorded Time Type 2 diabetes mellitus without complicat ion 008474448 Active 2021 endocrino logy : LORI Esteban [address] [facility], [address] [place] [address], [place], [address] , [facility] [employer] [facility] 12/12/202 4 16:29:45 Hyperglyc emia due to type 2 diabetes mellitus 28229211610 9109 Active 2021 Not Available [facility] 3 21:50:01 Dyslipide jennifer 942810769 Active 2021 Not Available [facility] 3 21:50:01 Ingrowing toenail 952335307 Active 2021 Not Available [facility] 3 21:50:01 Obesity 302758888 Active 2021 Not Available [facility] 3 21:50:01 Latent autoimmun e diabetes mellitus in adult 880008987 Active 2021 Not Available [facility] 3 21:50:01 Chronic kidney disease stage 1 159425442 Active 2019 Not Available [facility] 3 21:50:01 Type 2 diabetes mellitus 17979705 Active 2019 Not Available [facility] 3 21:50:01 Uncontrol led type 2 diabetes mellitus 554788559 Active 2021 Not Available [facility] 3 21:50:01 Hyperlipi demia 36584709 Active 2019 Not Available [facility] 3 21:50:02 Hyperthyr oidism 51778247 Active 2022 Berta Conner RN [facility], [facility] 3 16:57:57 Strain of muscle of left shoulder 49555424424 262311 Active 2022 LORI Morejon [address], [address], [place], [address] , [facility] 3 16:02:13 Injury of left shoulder 25713675154 803130 Active 2023 LORI Morejon [address], [address], [place], [address] , [facility] 4 16:16:40 Essential hypertens ion 39442889 Active 2023 LORI Morejon [address], [address], [place], [address] , [employer] [facility] 4 16:30:57 Neuropath y 134288049 Active 2023 LORI Morejon [address], [place], [address] , [employer] [facility] [employer] [facility] 4 16:25:35 Nicotine dependenc e 32446623 Active 2023 LORI Morejon [address], [place], [address] , [employer] [facility] 4 16:33:13 Low blood pressure 31510130 Active 2024 LORI Morejon [address] [employer], [place], [address] , [employer] [facility] [employer] [facility] 5 16:30:05 Problem Notes None recorded. Medical Equipment None Reported. Allergies No known drug allergies Medications Name Sig Start Date Stop Date Status Note LastModified by Organization Details LastModified Time losartan 50 mg tablet TAKE 1 TABLET BY MOUTH EVERY DAY IN THE MORNING active Not Available Not Available No t Available cyclobenzap rine 10 mg tablet TAKE 1 TABLET BY MOUTH EVERY DAY AT BEDTIME 01/23 completed Not Available Not Available Not Available metformin 500 mg tablet TK 1 T PO BID active Not Available Not Available No t Available atorvastati n 20 mg tablet TAKE 1 TABLET BY MOUTH DAILY 2024 active Not Available Not Available Not Avai lable clindamycin HCl 300 mg capsule TAKE 1 CAPSULE BY MOUTH TWICE DAILY FOR 7 DAYS 01/23 completed Not Available Not Available Not Available azithromyci n 250 mg tablet TAKE 2 TABLETS BY MOUTH TODAY, THEN TAKE 1 TABLET DAILY FOR 4 DAYS DIRECTED active Not Available Not Available No t Available ibuprofen 800 mg tablet TAKE 1 TABLET BY MOUTH EVERY 6 HOURS NEEDED FOR HEADACHE active Not Available Not Available No t Available fluconazole 150 mg tablet TAKE 1 TABLET BY MOUTH WITH THE START OF AZITHROMY BERNARDO AND THEN 1 TABLET BY MOUTH 72 HOURS AFTER. active Not Available Not Available No t Available valacyclovi r 1 gram tablet TAKE 1 TABLET BY MOUTH EVERY DAY FOR 5 DAYS active Not Available Not Available No t Available metronidazo le 0.75 % (37.5 mg/5 gram) vaginal gel INSERT 1 APPLICATO RFUL VAGINALLY EVERY DAY FOR 5 DAYS 10/21 completed Not Available Not Available Not Available ondansetron HCl 4 mg tablet 11/21 completed Not Available Not Available Not Available prednisone 20 mg tablet Take 2 tabs PO twice daily for 2 days; 1 tab PO twice daily for 5 days; 0.5mg PO twice daily for 2 days; 0.5mg PO once for 1 day. TAKE 2ND DOSE EVERYDAY AT NOON-10 DAY COURSE 01/23 completed Not Available Not Available Not Available phentermine 15 mg capsule TAKE 1 CAPSULE BY MOUTH EVERY DAY 11/09 completed Not Available Not Available Not Available [...] Not Available Not Available No t Available VectorMAX Ultra Test strips USE TO TEST BLOOD SUGAR THREE TIMES DAILY active Not Available Not Available No t Available metformin 1,000 mg tablet TAKE 1 TABLET BY MOUTH TWICE DAILY 11/09 completed Not Available Not Available Not Available losartan 25 mg tablet TAKE 1 TABLET BY MOUTH EVERY DAY FOR HIGH BLOOD PRESSURE active Not Available Not Available No t Available docusate sodium 100 mg capsule TAKE 1 CAPSULE BY MOUTH TWICE DAILY 01/25 completed Not Available Not Available Not Available clindamycin 2 % vaginal cream INSERT 1 APPLICATO RFUL VAGINALLY EVERY DAY AT BEDTIME FOR 7 DAYS 01/23 completed Not Available Not Available Not Available insulin lispro (U-100) 100 unit/mL subcutaneou s solution INJECT 50 UNITS DAILY VIA INSULIN PUMP active Not Available Not Available No t Available scopolamine 1 mg over 3 days transdermal patch APPLY 1 PATCH EVERY 72 HOURS DIRECTED 01/23 completed Not Available Not Available Not Available metformin ER 500 mg tablet,exte nded release 24 hr TK 2 TS PO BID 02/23 completed Not Available Not Available Not Available Ketostix strips active Not Available Not Available Not Available amoxicillin 875 mg-potassiu m clavulanate 125 mg tablet active Not Available Not Available Not Available Vitamin D 50,000 unit capsule Take 1 capsule every week by oral route. 01/25 completed Not Available Not Available Not Available insulin lispro (U-100) 100 unit/mL subcutaneou s pen ADMINISTE R 20 UNITS UNDER THE SKIN THREE TIMES DAILY BEFORE MEALS 11/09 completed Not Available Not Available Not Available Novolog FlexPen U-100 Insulin aspart 100 unit/mL (3 mL) subcutaneou s INJECT UP TO 20 UNITS UNDER THE SKIN 3 TIMES A DAY WITH MEALS ACCORDING TO CARB RATIO AND SLIDING SCALE 02/16 completed Not Available Not Available Not Available metformin ER 1,000 mg tablet,exte nded release 24hr (osmotic) Take 1 tablet twice a day by oral route. 02/23 completed Not Available Not Available Not Available pregabalin 50 mg capsule 1 cap po at bedtime for 7d ays, 1 cap twice daily for 7 days , 1 cap 3 times daily for 7 days . active Not Available Not Available No t Available pregabalin 150 mg capsule Take 1 capsule twice a day by oral route for 30 days. 2023 active Not Available Not Available Not Avai lable varenicline tartrate 0.5 mg (11)-1 mg (42) tablets in a dose pack TK DIRECTED active Not Available Not Available No t Available Chantix 1 mg tablet Take 1 tablet twice a day by oral route. active Not Available Not Available No t Available Januvia 50 mg tablet TAKE 1 TABLET BY MOUTH TWICE DAILY 09/02 completed Not Available Not Available Not Available Januvia 100 mg tablet Take 1 tablet every day by oral route. active Not Available Not Available No t Available Lantus Solostar U-100 Insulin 100 unit/mL (3 mL) subcutaneou s pen INJECT 25 UNITS UNDER THE SKIN EVERY DAY DIRECTED active Not Available Not Available No t Available Trulicity 1.5 mg/0.5 mL subcutaneou s pen injector INJECT 1.5 MG UNDER SKIN EVERY WEEK 11/09 completed Not Available Not Available Not Available Trulicity 0.75 mg/0.5 mL subcutaneou s pen injector Inject 0.75 mg every week by subcutane ous route for 28 days. 11/09 completed Not Available Not Available Not Available TRUEplus Pen Needle 32 gauge x 5/32 USE DIRECTED active Not Available Not Available No t Available Ozempic 1 mg/dose (2 mg/1.5 mL) subcutaneou s pen injector Inject 1 mg every week by subcutane ous route. 2023 active Not Available Not Available Not Avai lable OneTouch Ultra Blue Test Strip USE TO TEST 5 TIMES DAILY UTD active Not Available Not Available No t Available Dexcom G6 Physicist Solid State USE DIRECTED FOR CONTINUOU S GLUCOSE MONITORIN G active Not Available Not Available No t Available Dexcom G6 Transmitter device CHANGE EVERY 90 DAYS active Not Available Not Available No t Available Omnipod Dash Pods (Gen 4) subcutaneou s cartridge CHANGE POD EVERY 3 DAYS active Not Available Not Available No t Available OneTouch Ultra2 Meter USE DIRECTED active Not Available Not Available No t Available OneTouch Delica Plus Lancet 33 gauge active Not Available Not Available Not Available OneTouch Delica Plus Lancet 30 gauge active Not Available Not Available Not Available [employer] HypoPen 2-Pack 1 mg/0.2 mL subcutaneou s auto-inject or Inject 1 mg as needed by subcutane ous route as needed for 1 day. active Not Available Not Available No t Available FreeStyle Godfrey 2 Sensor kit CHANGE SENSOR EVERY 14 DAYS X 90 DAYS 11/09 completed Not Available Not Available Not Available Trulicity 3 mg/0.5 mL subcutaneou s pen injector Inject 3 mg every week by subcutane ous route for 28 days. 11/09 completed Not Available Not Available Not Available Ozempic 1 mg/dose (4 mg/3 mL) subcutaneou s pen injector INJECT 1 MG UNDER THE SKIN ONE DAY A WEEK active Not Available Not Available No t Available Ozempic 2 mg/dose (8 mg/3 mL) subcutaneou s pen injector ADMINISTE R 2 MG UNDER THE SKIN WEEKLY active Not Available Not Available No t Available Dexcom G7 Sensor device USE TO MONTIOR GLUCOSE AND REPLACE SENSOR EVERY 10 DAYS active Not Available Not Available No t Available Ozempic 0.25 mg or 0.5 mg (2 mg/3 mL) subcutaneou s pen injector active Not Available Not Available Not Available Omnipod 5 G6-G7 Intro Kit(Gen 5) subcutaneou s cartridge and controller CHANGE POD every 2-3 DAYS as directed active Not Available Not Available No t Available Omnipod 5 G6-G7 Pods (Gen 5) subcutaneou s cartridge CHANGE pod every 2-3 DAYS as directed. active Not Available Not Available No t Available Vitals Date Recorded Body height Body mass index (BMI) Body weight Body temperature Oxygen saturation Oxygen saturation in Arterial blood by Pulse oximetry Heart rate Systolic blood pressure Diastolic blood pressure Provider Name and Address Organization Details Last Updated DateTime 5 167.64 cm 29.5 kg/m2 94585.4 g 98 [degF] 98 % 98 % 85 /min 120 mm[Hg] 80 mm[Hg] MICKY Montano [facility] [employer] 5 16:15:22 Date Recorded Body height Body mass index (BMI) Body weight Body temperature Heart rate Respiratory rate Systolic blood pressure Diastolic blood pressure Provider Name and Address Organization Details Last Updated DateTime 4 167.64 cm 29.7 kg/m2 66961 g 98 [degF] 84 /min 16 /min 126 mm[Hg] 78 mm[Hg] Kita Morgan RN [facility] [employer] 4 16:09:56 Date Recorded Body height Body mass index (BMI) Body weight Heart rate Body temperature Systolic blood pressure Diastolic blood pressure Provider Name and Address Organization Details Last Updated DateTime 3 167.64 cm 30.6 kg/m2 80781.8 3 g 91 /min 97.5 [degF] 154 mm[Hg] 93 mm[Hg] Chiquis Torres MA [facility] [employer] 3 15:07:36 Date Recorded Body height Body mass index (BMI) Body weight Body temperature Oxygen saturation Oxygen saturation in Arterial blood by Pulse oximetry Heart rate Systolic blood pressure Diastolic blood pressure Provider Name and Address Organization Details Last Updated DateTime 4 167.64 cm 29.9 kg/m2 69411.5 9 g 97.9 [degF] 97 % 97 % 66 /min 136 mm[Hg] 86 mm[Hg] Deloris Rodriguez RN [facility] [employer] [facility] 4 16:13:38 Date Recorded Body height Body mass index (BMI) Body weight Body temperature Heart rate Oxygen saturation Oxygen saturation in Arterial blood by Pulse oximetry Systolic blood pressure Diastolic blood pressure Provider Name and Address Organization Details Last Updated DateTime 3 167.64 cm 30 kg/m2 99162.1 8 g 97.3 [degF] 77 /min 96 % 96 % 128 mm[Hg] 84 mm[Hg] Radha Queen [place] [facility] 3 15:49:31 Social History Question Answer Notes LastModified by [employer] Details LastModified Time Tobacco Smoking Status Former Smoker Not Available [facility] 04/12/2022 21:48:40 If You Are , What Was Your Level Of Alcohol Consumption Prior To ? None [id number] Information not available 04/12/2022 What Is Your Level Of Caffeine Consumption? Moderate [id number] Information not available 04/12/2022 What Is The Highest Grade Or Level Of School You Have Completed Or The Highest Degree You Have Received? [id number] [id number] Information not available 04/12/2022 When Did You Quit Smoking? 1-5yearssince lastcigarette [id number] Information not available 04/12/2022 Have You Ever Been Counseled For Unhealthy Alcohol Use? No [id number] Information not available 04/12/2022 What Is Your Relationship Status? Single [id number] Information not available 04/12/2022 Has Tobacco Cessation Counseling Been Provided? No [id number] Information not available 04/12/2022 Sex: Unknown Functional Status Question Answer Note LastModified by W[employer] Details LastModified Time Do you use any illicit or recreational drugs? No [id number] Information not available 04/12/2022 Do you or have you ever used any other forms of tobacco or nicotine? Yes Information not available 01/24/2024 What is your level of alcohol consumption? 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 Current user of electronic cigarettes Information not available 01/24/2024 Mental Status None recorded. Family History Relationship Description Onset Age of this Age Resolved Age Notes LastModified by Organization Details LastModified Time Paternal Grandmother Kidney disease [id number] Not available 04/12/2022 21:49:05 Father Heart disease [id number] Not available 04/12/2022 21:49:05 Father Diabetes mellitus [id number] Not available 04/12/2022 21:49:05 Medical History Condition Response DIABETES, TYPE Y KIDNEY DISEASE Y HIGH CHOLESTEROL / HYPERLIPIDEMIA Y Gynecological HistoryNo gynecological history recorded. Obstetrics History GPAL:G 0 P 0 0 0 0 Past Encounters Encounter ID Performer Location Encounter Start Date Encounter Closed Date Diagnosis/Indication Diagnosis SNOMED-CT Code Diagnosis ICD10 Code Diagnosis Note [id number] Guanakito Gracia MD [facility] [address] [facility] [place] [address] 10/21/2020 00:00:00 10/21/2020 17:07:01 [id number] Gracy Ochoa MD [facility] [place] [address] [place] [address] 01/25/2021 00:00:00 02/15/2021 12:31:54 [id number] [facility] [place] [address] [place] [address] 04/21/2021 00:00:00 04/22/2021 10:11:08 [id number] [facility] [place] [address] [place] [address] 07/26/2021 00:00:00 07/28/2021 19:34:25 [id number] [facility] [place] [address] [place] [address] 11/21/2021 00:00:00 11/21/2021 21:59:13 [id number] Gracy Ochoa MD [facility] [place] [address] [place] [address] 11/09/2022 14:58:38 11/09/2022 15:40:18 Latent autoimmune diabetes mellitus in adult 541934480 E13.9 A1C of 7.6% down from 8%- she is compliant with her fingerstic ks and insulin injections . Restart on omnipod with rate of 0.4 u/hr and carb ratio of 1:4- continue on dexcom so she can continue to monitor and adjust her bolus settings as needed. Transition off trulicity to ozempic as patient tolerating ozempic well. She has no hx of pancreatit is or medullary thyroid cancer and is willing to trial on a GLP1 agonist therapy. She was advised to contact clinic if she experience s any nausea, vomiting or significan t thyroid pain / swelling or abdominal pain so we can discuss and discontinu e and potentiall y look to other therapy. Will trial on ozempic 0.25 mg once weekly x 4 weeks then increase to 0.5 mg once weekly thereafter with large meal of that day as tolerated. Refer to endocrinol ogy per patient request. I did provide patient with tresiba samples in case she has to use injections until pods come in- she is aware to drop dose by 20% as U200 requires dose reduction compared to U100 insulin- 14-16 units at bedtime. Send in GVoke for hypoglycem ia rescue. Dyslipidemia 112346837 E 78.5 Continue on atorvastat in as she has hx of premature CAD in family. Spent up to 25 minutes preparing to see the patient (eg, review of tests), obtaining and/or reviewing separately obtained history, performing a medically appropriat e examinatio n and evaluation , counseling and educating the patient, ordering medication s, tests, along with documentin g clinical informatio n in the electronic health record, independen tly interpreti ng results and communicat ing results to the patient. Patient can be followed by PCP - she/he is aware of my resignatio n and last day of November 24. If needed his/her PCP can refer patient to another endocrinol ogist in the area. All questions /concerns answered and refills necessary at visit today. [id number] Guanakito Gracia MD [facility] [address] [place] [address] 01/29/2023 15:41:54 01/29/2023 16:09:00 Latent autoimmune diabetes mellitus in adult 066369647 E13.9 Strain of muscle of left shoulder [id number] S46.912A Type 2 cristobal betes mellitus without complication 150088855 E11.9 [id number] Guanakito Gracia MD [facility] [address] [place] [address] 04/30/2023 16:02:44 04/30/2023 16:31:53 Injury of left shoulder [id number] S49.92XD Essential hypertension 93817162 I10 Chronic ki dney disease stage 1 276999793 N18.1 Hyperlipidemia 81376346 E78.5 Obesity 687509534 E66.9 Type 2 cristobal betes mellitus 00393819 E11.9 [id number] Tano Pearce MD [address] [address] 01/24/2024 15:33:16 01/24/2024 16:29:39 Dyslipidemia 182326763 E78.5 Neuropathy 210035161 G62 .9 Type 2 cristobal betes mellitus without complication 385766440 E11.9 Nicotine dependence 5629 4008 F17.200 Ingrowing toenail 179127 009 L60.0 Chronic ki dney disease stage 1 508699768 N18.1 Hyperlipidemia 82515184 E78.5 [id number] Tano Pearce MD [address] [address] 04/24/2024 16:09:51 04/24/2024 16:47:29 Type 2 diabetes mellitus 88001099 E11.9 Low blood pressure 34635 003 I95.9 Dyslipidemia 555883614 E 78.5 Neuropathy 158265127 G62 .9 Nicotine dependence 5629 4008 F17.200 Essential hypertension 18789760 I10 Chronic ki dney disease stage 1 341566322 N18.1 Hyperlipidemia 92411341 E78.5 Latent aut oimmune diabetes mellitus in adult 887611553 E13.9 Health Concerns Section Related Observation LastModified by Organization Detai ls LastModified Time None Recorded Concern Status LastModified by Organization Details LastModified Time None Recorded Advance Directives Directive None Recorded Payers Insurance Date Sequence Insurance Name Policy Number Policy Fernandez Covered Member ID Fernandez Member ID Guarantor Name 04/24/2024 1 [facility] - DOS ON OR AFTER 20 (MEDICAID REPLACEMENT - HMO) Leeann Sotelo [id number] Leeann Sotelo Notes Date Note Type Note Provider Name and Address Organization Details Recorded Time 11/09/2022 text/html 37 yo female com es in for follow up in management of uncontrolled SHASHANK (A1C of 7.6% down from 8%). last seen in Nov at that time we continued dexcom. Continued omnipod, but titrated settings:12a-12p 1.412p-12a 1.81:4She is now taking 1.4 u/hr for 24 hour hours along with 1:4 carb ratio We increased trulicity to 3 mg weekly for appetite control. She is no longer taking trulicity and taking ozempic instead-Discussed self-titration by 10% to maintain FBG 90-130 and 2 hr post-prandial BG <150. we added phentermine for weight management. For as long as she has had her omnipod samples-she only has rapid insulin due to being on insulin pump- labs from 09/03:microalbumin 122.2 ug/mg173/42/61/108 TSH of 0.294 uIU/mlFT4 of 1.13 ng/dLA1C 7.6% Gracy Ochoa MD [address], [place], [address], [employer] 11/09/2022 16:21:01 01/29/2023 text/html left shoulder strain LORI Morejon [address], [place], [address], [employer] 02/08/2023 23:23:42 04/30/2023 text/html physical therapy not helping left shoulder LORI Morejon [address], [place], [address], [employer] 05/13/2023 21:43:44 01/24/2024 text/html endo did an a1c in Dec. LORI Morejon [address], [place], [address], [employer] [facility] 01/25/2024 10:58:42 04/24/2024 text/html in ED day after [facility]. troponin levels elevated , needs referral cardiology. had gone to [facility] , no pen needles. . no side effects from atorvastatin , well rare muscle cramps , mild Edward LORI Graff [address], [facility] [address], [place], [address], [employer] [facility] 04/24/2024 16:46:51 OBGyn Episode No OBEpisode recorded.
--- OUTSIDE RECORDS SUMMARY | 2024-07-25 16:37 | XMS_ITS | Clinical Summary ---
Author Organization [facility] Facility Address [address] [place] [address] Care Team Providers Care Lube Worker Name Role Phone Racquel Barry SHAWN Primary Care Provider [phone] Medications ergocalciferol 1.25 MG (87857 UT) capsule Take 1 capsule (50,000 Units total) by mouth 1 (one) time per week 12 capsule 1 10/21/2020 Active OneTouch Ultra test strip daily 100 strip 1 10/22/2020 Active insulin glargine (Basaglar KwikPen) 100 UNIT/ML injection Inject 15 Units under the skin every night 12 mL 1 10/22/2020 Active Insulin Pen Needle 29G X 12.7MM misc Active BD Pen Needle Julia 2nd Gen 32G X 4 MM misc USE DIRECTED 100 each 1 11/04/2020 Active losartan (COZAAR) 50 MG tablet Take 1 tablet (50 mg total) by mouth every night 90 tablet 1 01/30/2024 Active Social History Tobacco Use Types Packs/Day Years Used Date Smoking Tobacco: Never Alcohol Use Standard Drinks/Week Comments Yes 0 (1 standard drink = 0.6 oz pure alcohol) Alcoholic Drinks/day: Occasional social drink Comments Unknown Sex and Gender Information Value Date Recorded Sex Assigned at Not on file Legal Sex Female 2:52 PM EDT Gender Identity Not on file Sexual Orientation Not on file Last Filed Vital Signs Vital Sign Reading Time Taken Comments Blood Pressure 130/80 01/30/2024 3:42 PM IT PROGRAMMER Pulse 78 01/30/2024 3:42 PM IT PROGRAMMER Temperature 36.1 C (97 F) 01/30/2024 3:42 PM IT PROGRAMMER Respiratory Rate 18 01/30/2024 3:42 PM IT PROGRAMMER Oxygen Saturation 99% 01/30/2024 3:42 PM IT PROGRAMMER Inhaled Oxygen Concentration - - Weight 86.5 kg (190 lb 9.6 oz) 01/30/2024 3:42 P M IT PROGRAMMER Height 157.5 cm (5' 2) 10/21/2020 1:59 PM CDT Body Mass Index 34.86 10/21/2020 1:59 PM CDT Plan of Treatment Upcoming Encounters Date Type Department Care Team (Late st Contact Info) Description 07/30/2024 3:00 PM CDT Office Visit [facility] [address] [facility] [address] [place] [address] [place] [address] [place] [address] 1 [place] [address] Health Maintenance Due Date Last Done Comments Hepatitis B Vaccine (1 of 3 - 19+ 3-dose series) 04/12/2002 Pneumococcal Vaccine: Peds ( 0 to 5 Years) and At-Risk Patients (6 to 49 Years) (1 of 2 - PCV) 04/12/2002 Diabetes: Ophthalmology Exam 07/09/2020 Diabetes: Pedal Pulse Checked 07/09/2020 Diabetes: Sensory Foot Exam 07/09/2020 Diabetes: Visual Foot Exam 07/09/2020 Diabetes: Hemoglobin A1C 01/18/2021 10/19/2020, 03/0 10/2020 Influenza Vaccine (Season Ended) 2024 Procedures Procedure Name Priority Date/Time Associated Diagnosis Comments HEMOGLOBIN A1C Routine 10/19/2020 10:20 AM CDT from Last 3 Months or Most Recently Relevant to Health Maintenance Results * (ABNORMAL) Hemoglobin A1c (10/19/2020 10:20 AM CDT) Hemoglobin A1C >14.0(H) <5.7 % of total Hgb [facility] Comment: Verified by repeat analysis. For someone without known diabetes, a hemoglobin A1c value of 6.5% or greater indicates that they may have diabetes and this should be confirmed with a follow-up test. For someone with known diabetes, a value <7% indicates that their diabetes is well controlled and a value greater than or equal to 7% indicates suboptimal control. A1c targets should be individualized based on duration of diabetes, age, comorbid conditions, and other considerations. Currently, no consensus exists regarding use of hemoglobin A1c for diagnosis of diabetes for children. 10/19/2020 10:2 0 AM CDT 10/19/2020 10:19 AM CDT Narrative [facility] - 10/20/2020 5:23 PM CDT FASTING:NO FASTING: NO Resulting Agency Comment Performing Organization Information: Site ID: [id number] Name: [facility] Address: [address] [address] Director: Zachariah Roman D.O., MPH us De Fisher DO LAB BLOOD ORDERABLES Final R esult [facility] from Last 3 Months or Most Recently Relevant to Health Maintenance [place] [address] [facility] ([facility]) Care Teams Lube Worker Relationship Specialty Start Date End Date Racquel Barry ANP [address] [facility] [address] [place] [address] PCP - General Nurse Practitioner 10/21/20
--- OUTSIDE RECORDS SUMMARY | 2024-07-25 16:37 | XMS_ITS | Encounter Summary ---
Author Organization [facility] [employer] [facility] Address [address] [place] [address] Phone Care Team Providers Care Surgical Services Director Name Role Phone Racquel Barry SHANW Primary Care Provider [phone] Reason for Visit * Reason Comments Med Refill Encounter Details Date Type Department Care Team (Late st Contact Info) Description 04/10/2021 Refill [place] [facility] [address] [address] De Fisher DO [address] [address] Social History Tobacco Use Types Packs/Day Years Used Date Smoking Tobacco: Never Alcohol Use Standard Drinks/Week Comments Yes 0 (1 standard drink = 0.6 oz pure alcohol) Alcoholic Drinks/day: Occasional social drink Comments Unknown Sex and Gender Information Value Date Recorded Sex Assigned at Not on file Legal Sex Female 2:52 PM EDT Gender Identity Not on file Sexual Orientation Not on file documented as of this encounter Plan of Treatment Upcoming Encounters Date Type Department Care Team (Late Contact Info) Description 07/30/2024 3:00 PM CDT Office Visit [place] [facility] [address] [address] De Fisher DO [address] [address] documented as of this encounter Visit Diagnoses Not on filedocumented in this encounter Care Teams Surgical Services Director Relationship Specialty Start Date End Date aRcquel Barry ANP [address] [place] [address] PCP - General Nurse Practitioner 10/21/20 documented as of this encounter
--- OUTSIDE RECORDS SUMMARY | 2024-07-25 16:37 | XMS_ITS | Clinical Summary ---
Author Organization [facility] Address [address] [place] [address] Phone Care Team Providers Care Technical Coordinator Name Role Phone Unavailable Primary Care Provider Unavailabl e Allergies No known active allergies Medications NovoLOG Flexpen U-100 Insulin 100 unit/mL (3 mL) pen syringe INJECT 3 UNITS UNDER THE SKIN 3 TIMES A DAY 2 Active atorvastatin (LIPITOR) 20 mg tablet atorvastatin 20 mg tablet TAKE 1 TABLET BY MOUTH DAILY Active Active Problems No known active problems Family History Medical History Relation Name Comments Bone Cancer Father Stroke Maternal Grandfather Breast Cancer Maternal Grandmother Lung Cancer Maternal Grandmother Heart Disease Paternal Grandfather Colon Cancer Neg Hx Ovarian Cancer Neg Hx Relation Name Status Comments Father Maternal Grandfather Alive Maternal Grandmother Alive Mother Alive Paternal Grandfather Paternal Grandmother Alive Sister 1 Alive Sister 2 Alive Social History Tobacco Use Types Packs/Day Years Used Date Smoking Tobacco: Former Cigarettes 0.5 20 Smokeless Tobacco: Never Alcohol Use Standard Drinks/Week Comments Yes 6 (1 standard drink = 0.6 oz pur e alcohol) Comments No Sex and Gender Information Value Date Recorded Sex Assigned at Not on file Legal Sex Female 4:21 PM CDT Gender Identity Not on file Sexual Orientation Not on file Last Filed Vital Signs Vital Sign Reading Time Taken Comments Blood Pressure 121/77 07/05/2021 2:59 PM CDT Pulse 87 07/05/2021 2:59 PM CDT Temperature 37.1 C (98.7 F) 07/05/2021 2:59 PM CDT Respiratory Rate 18 07/05/2021 2:59 PM CDT Oxygen Saturation 100% 07/05/2021 2:59 PM CDT Inhaled Oxygen Concentration - - Weight 79.4 kg (175 lb) 07/05/2021 2:59 PM CDT Height 167.6 cm (5' 6) 07/05/2021 2:59 PM CDT Body Mass Index 28.25 07/05/2021 2:59 PM CDT Plan of Treatment Health Maintenance Due Date Last Done Comments DIABETES ANNUAL FOOT EXAM 04/12/2001 DIABETES ANNUAL RETINAL EXAM 04/12/2001 DIABETES MICROALBUMIN ANNUAL SCREEN 04/12/2001 LDL CHOLESTEROL ANNUAL 04/12/2001 DTAP/TDAP/TD VACCINES (1 - Tdap) 04/12/2002 HEPATITIS B VACCINES (1 of 3 - 19+ 3-dose series) 04/12/2002 HPV/Cotest (21-29) 04/12/2004 HPV/Cotest (30-65) 04/12/2013 DIABETES HBA1C Q 6 MONTHS 04/18/2021 10/19/2020 BREAST CANCER SCREENING 2023 INFLUENZA VACCINE (#1) 2023 CERVICAL CANCER SCREENING 06/09/2024 PAP SMEAR 06/09/2024 06/09/2021 HPV VACCINES Aged Out No longer eligi ble based on patient's age to complete this topic Insurance [employer]
[2024-07-25 17:27] LABS: Hemoglobin 14.1 g/dL (12.0-15.0); Mean Corpuscular Hemoglobin 29.3 pg (26-34); Mean Corpuscular Volume 91.3 fl (80-100); Mean Platelet Volume 10.2 fl (7.4-10.4); Platelet Count Result 300 k/mm3 (150-375); Red Blood Count 4.82 M/mm3 (4.2-5.4); Red Cell Distribution Width 12.9 % (11.5-14.5); White Blood Count 7.1 K/mm3 (4.5-10.0)
[2024-07-25 17:36] LABS: Hemoglobin A1C 7.3 % (<5.7)
[2024-07-25 17:37] LABS: Creatinine Urine 43.2 mg/dL
[2024-07-25 17:42] LABS: MALB Creatinine Ratio 77.3 mg/g (0-30); Microalbumin Urine Random 33.4 mg/L (0-16.7)
[2024-07-25 17:50] LABS: Alanine Aminotransferase 28 U/L (6-35); Albumin Level 4.8 g/dL (3.5-5.1); Alkaline Phosphatase 75 U/L (38-126); Anion Gap 12 mmol/L (4-12); Aspartate Amino Transferase 55 U/L (14-36); Bilirubin,Total 0.7 mg/dL (0.2-1.3); Blood Urea Nitrogen 10 mg/dL (7-17); Calcium 9.6 mg/dL (8.4-10.2); Carbon Dioxide 24 mmol/L (22-30); Chloride 103 mmol/L (98-107); Cholesterol 213 mg/dL (0-200); Estimated Glomerular Filt Rate > 60; Glucose 50 mg/dL (65-110); HDL Direct 108 mg/dL; Magnesium 1.8 mg/dL (1.6-2.3); Phosphorus 5.1 mg/dL (2.5-4.5); Potassium 3.5 mmol/L (3.4-5.0); Sodium 139 mmol/L (137-145); Total Protein 8.5 g/dL (6.3-8.2); Triglycerides 90 mg/dL (<150)
[2024-07-25 17:54] LABS: LDL Cholesterol Direct 82 mg/dL
[2024-07-25 17:58] LABS: Free T4 Free Thyroxine 1.19 ng/dL (0.78-2.19); Vitamin D 25 Hydroxy 15.6 ng/mL
[2024-07-25 18:19] LABS: Creatinine Urine 43.3 mg/dL; Total Protein Urine Random 15 mg/dL; Ur Ttl Prot Creatinine Ratio 0.35 mg/mg (0-0.20)
[2024-07-28 12:47] LABS: Cystatin C 0.76 mg/L (0.52-1.21); eGFR 108 (> OR = 60)
== END 2024-07-25 16:33 | disposition home or self-care (01) ==
PROVIDERS: Referring Provider Internal Medicine Nephrology; Visit Provider Nurse Practitioner Family
DX: I12.9 Hypertensive chronic kidney disease with stage 1 through stage 4 chronic kidney disease, or unspecified chronic kidney disease (principal); E11.22 Type 2 diabetes mellitus with diabetic chronic kidney disease; N18.1 Chronic kidney disease, stage 1; R80.1 Persistent proteinuria, unspecified; E78.00 Pure hypercholesterolemia, unspecified
CPT/HCPCS: 36415; 80053; 80061; 80069; 82043; 82306; 82570; 82607; 82610; 83036; 83735; 84156; 84439; 84443; 85027